=== PATIENT | male | born 1930 | race Caucasian/White ===

== ENCOUNTER 2022-07-04 17:05 | Inpatient (IN) ==
[2022-07-04] MEDS ORDERED: ACETAMINOPHEN 1,000 MG/100 ML VIAL IV STA (17:36)
[2022-07-04] MEDS ORDERED: SODIUM CHLORIDE 0.9% 1000ML 1,000 ML IV STA ×2 (17:36→18:27)
--- NOTE | 2022-07-04 17:36 | ED Triage Note ---
Date of Service July 04, 2022 History of Present Illness This patient was briefly evaluated while in triage. An abbreviated physical exam was performed. This patient is a 89-year-old Male with significant past medical history of HTN who presents to the ED for evaluation of shakiness and abdominal pain after eating lunch. Then started vomiting which lasted for about 2 hours. BP elevated to 173 systolic, HR was 106. Has had similar symptoms in the past. Physical Exam VITALS: Vitals are noted on the nurse's note and reviewed by myself. GENERAL: This is an 89 year old white male, in no acute distress, nondiaphoretic, well-developed well-nourished. SKIN: No obvious rashes, edema, erythema HEAD: Normocephalic atraumatic. EYES: Conjunctivae without injection, sclerae without icterus. NECK: No JVD. LUNGS: No retractions or accessory muscle use. MUSCULOSKELETAL: Normal gait. NEURO: Patient was alert and oriented to person place and time. No focal neurological deficits. Initial orders for labs and / or imaging were placed and patient was placed in the waiting area until a bed is available. Please see further documentation for the full ED course. MDM / Impression Impression Impression: Acute pancreatitis, Choledocholithiasis, Acute cholangitis
[2022-07-04 18:36] LABS: Basophils # (auto) 0.02 K/uL (0-0.2); Basophils % (auto) 0.2 %; Eosinophils # (auto) 0.02 K/uL (0-0.50); Eosinophils % (auto) 0.2 %; Hematocrit (blood only) 42.1 % (40.1-51.0); Hemoglobin 15.1 g/dl (14.0-18.0); Immature Granulocytes # (auto) 0.06 K/uL (0.00-0.02); Immature Granulocytes % (auto) 0.5 %; Lymphocytes # (auto) 0.49 K/uL (1.2-3.4); Lymphocytes % (auto) 3.8 %; Mean Corpuscular Hemoglobin 34.5 pg (25.0-34.0); Mean Corpuscular Hgb Conc 35.9 g/dL (32.0-36.0); Mean Corpuscular Volume 96.1 fL (80.0-100.0); Mean Platelet Volume 8.7 fL (9.4-12.4); Monocytes % (auto) 9.3 %; Neutrophils # (auto) 11.08 K/uL (1.4-6.5); Platelet Count 278 K/uL (130-400); RDW Coefficient of Variation 13.2 % (11.5-14.5); RDW Standard Deviation 47.3 fL (36.4-46.3); Red Blood Count 4.38 M/uL (4.63-6.08); White Blood Count 12.87 K/ul (4.8-10.8)
[2022-07-04 18:45] LABS: Prothrombin Time 11.1 Seconds (9.0-12.0)
[2022-07-04 19:00] LABS: Troponin I High Sensitivity 19.9 pg/ml (0-20)
[2022-07-04 19:19] LABS: BUN Creatinine Ratio 15.7 (10-20); Calcium 9.2 mg/dl (8.5-10.1); Est GFR (African American) 90.4 ml/min; Potassium 3.8 mmol/L (3.5-5.1); Procalcitonin 1.94 ng/ml (0-0.5)
[2022-07-04 19:25] LABS: Lyme Ab IgG w/WB Rflx Negative (Negative); Lyme Ab IgM w/WB Rflx Negative (Negative)
--- NOTE | 2022-07-04 19:25 | XRay Report ---
SINGLE VIEW CHEST CLINICAL HISTORY: Fever FINDINGS: An AP, portable, upright chest radiograph is compared to study dated 11/11/2019. The heart i s enlarged noting atherosclerotic calcification of the thoracic aorta. The pulmonary vasculature is n oncongested. Chronic interstitial thickening is similar to previous. There is elevation of the right hemidiaphragm with bibasilar scarring/atelectasis. The lungs and pleural spaces are otherwise clear. No pneumothorax is seen. The skeletal structures are osteopenic. The bony thorax is grossly intact. C holecystectomy clips are seen in the right upper quadrant. IMPRESSION: Cardiomegaly with no acute cardiopulmonary abnormality. ACT 112: Negative or not required by law. Electronically signed by: Xavier Olivarez M.D. 07/04/2022 7:24 PM
[2022-07-04 19:51] LABS: Albumin Globulin Ratio 1.1 (0.9-2); Albumin Level 3.6 gm/dl (3.4-5.0); Bilirubin,Total 3.4 mg/dl (0.2-1.0); Globulin 3.3 gm/dl (2.5-4.0); Total Protein 6.9 gm/dl (6.0-8.3)
--- NOTE | 2022-07-04 20:27 | CT Scan Report ---
CT SCAN OF THE ABDOMEN AND PELVIS WITHOUT IV CONTRAST CLINICAL HISTORY: Fever. Upper abdominal pain. COMPARISON STUDY: Abdominal CT dated 11/11/2019 TECHNIQUE: CT scan of the abdomen and pelvis is performed from the lung bases to the proximal femora. Images are reviewed in the axial, sagittal, and coronal planes. IV contrast was not administered for this examination as per the referring clinician. Note that the examination was performed in signific antly suboptimal fashion without oral and IV contrast. A dose lowering technique was utilized adherin g to the principles of ALARA. CT DOSE: 289.20 mGy.cm FINDINGS: Lung bases: The heart is mildly enlarged and without pericardial effusion. The coronary arteries are densely calcified. Fibrotic change is seen at the lung bases. There is no airspace consolidation or p leural effusion. Liver: The unenhanced liver is normal in size, contour, and attenuation. There is moderate intrahepat ic biliary ductal dilatation. Gallbladder: Surgically absent noting clips in the gallbladder fossa. Hyperdense material fills the c ommon bile duct. This is best seen on axial image #138. Mild infiltration is seen around the nahed he patis. Spleen: Normal in size and attenuation. Pancreas: Unremarkable. Adrenal glands: Unremarkable. Kidneys: The unenhanced kidneys are normal in size and without hydronephrosis. There are no renal cj culi identified. A 9 cm cyst is again seen arising from the upper pole of the right kidney. This has decreased in size as compared to 11/11/2019. Abdominal vasculature: The abdominal aorta is normal in course and caliber note moderate atherosclero tic calcification. Bowel: There is mild colonic diverticulosis without CT evidence of acute diverticulitis. No bowel obs truction is seen. The appendix is normal as visualized. Peritoneum: There is no intraperitoneal free air or abdominal ascites. A surgical clip or metallic fo reign body is noted just below the umbilicus. There is a small fat-containing umbilical hernia. Lymphadenopathy: None. Pelvic viscera: The prostate gland is enlarged and heterogeneous noting median lobe hypertrophy. The bladder wall is thickened and trabeculated indicating chronic outlet obstruction. A 3.3 cm bladder di verticulum is noted on the left. There are small bilateral fat-containing inguinal hernias. Skeletal structures: The skeletal structures are heterogeneously osteopenic. There is [id number]-af-[id number] e lumbosacral spondylosis. No lytic or blastic lesions are seen. IMPRESSION: 1. Significantly suboptimal examination without oral and IV contrast. 2. Hyperdense material fills the common bile duct, which could represent blood clots versus choledoch olithiasis. 3.There is moderate intrahepatic biliary ductal dilatation, which has significantly increased from . There is also mild inflammation seen around the nahed hepatis. Correlate with clinical and l aboratory findings for evidence of biliary obstruction and possible infection. GI assessment is advis ed. 4. Cardiomegaly with advanced coronary artery calcification. 5. Prostatomegaly with evidence of chronic bladder outlet obstruction. 6. Additional findings as above. ACT 112: Negative or not required by law. Electronically signed by: Xavier Olivarez M.D. 07/04/2022 8:25 PM
[2022-07-04] MEDS ORDERED: PIPERACILLIN/TAZOBACTAM 4.5 GM/120 ML BAG IV ONE (20:55)
[2022-07-04 21:01] LABS: Influenza A virus by PCR Negative (Neg); Influenza B virus by PCR Negative (Neg); RSV by PCR Negative (Neg); SARS CoV2 RNA(COVID-19) InHosp NEGATIVE (Negative)
[2022-07-04] MEDS: LACTATED RINGER'S 1,000 ML IV SCH (22:06)
--- NOTE | 2022-07-05 00:59 | Emergency Department Note ---
Impression & Plan Acute pancreatitis, Choledocholithiasis, Acute cholangitis ED Provider Note INFORMANT: Patient and family ED PROVIDER(S): Tim Tompkins MD CHIEF COMPLAINT: Abdominal pain PLAN: Disposition: Admitted Condition: Good Outpatient prescription management: none Referral: None MEDICAL DECISION MAKING: Patient presented because of abdominal pain. Work-up was initiated. He was found to have laboratory findings consistent with pancreatitis with an elevated lipase. He also had elevated LFTs and a leukocytosis. Patient was hydrated and treated with IV Zosyn. ECG showed a tachycardia. CT imaging was consistent with pancreatitis but also concerning for possible choledocholithiasis. Radiology questioned blood in the duct but the patient does not have any risk factors for this. Seems most consistent with choledocholithiasis in light of his history. I did consult with Dr. Rubio of gastroenterology. He recommended inpatient evaluation and agree with antibiotics. [facility]. Patient was evaluated and admitted for further management. Triage Nursing notes reviewed and agree them. Vital Signs: reviewed and remarkable for fever Differential diagnosis: Appendicitis, infections, diverticulitis, UTI, obstruction, mesenteric ischemia, aortic pathology, inflammatory bowel disease, renal colic, PUD, pancreatitis, biliary pathology, hernia, volvulus, constipation, as well as other pathologies. Diagnostics interpreted by me: ECG: Twelve-lead ECG reveals a sinus tachycardia 102 beats minute. PACs prese nt. Nonspecific ST. No ST elevation. Cardiac Monitoring: Cardiac monitoring ordered by me: The patient was placed on continuous cardiac monitoring and observed. It revealed a normal sinus rhythm at 87 beats per minute without evidence of dysrhythmia. Imaging studies: CT scan as noted below HPI: The patient is an 89year old male who presents to the Emergency Room with complaints of abdominal pain. This started about 2 hours prior to arrival and is improved. The patient also notes the following associated symptoms, chills, shaking, nausea and vomiting. The patient has been given no medication for relieving factors. Current pain is rated as 2/10. notes that the patient has had upper abdominal discomfort for several weeks. States an upper GI was performed and no problems noted. Pt denies LOC, headache, fevers, diaphoresis, visual changes, neck pain, chest pain, breathing difficulties, back pain, melena, hematochezia, urinary symptoms, numbness, weakness, lymphadenopathy, rash, or other complaints. ROS: See above HPI for pertinent positives & negatives. A total of 10 systems reviewed and were otherwise negative. PAST MEDICAL HISTORY:See Below , hypertension PAST SURGICAL HISTORY:See Below, cholecystectomy FAMILY HISTORY:See Below SOCIAL HISTORY:See Below, HOME MEDICATIONS:See Below ALLERGIES:See Below VITALS:See Below PHYSICAL EXAMINATION: GENERAL: Awake, alert, mildly uncomfortable-appearing, in no distress HENT: Normocephalic, atraumatic. Oropharynx unremarkable. EYES: Normal conjunctiva. Sclera non-icteric. NECK: Inspection normal. Non-tender. Supple. No nuchal rigidity. FROM. No masses. RESPIRATORY: Clear to auscultation. No wheezes. No rales. Normal respiratory effort. CARDIAC: Normal rate. Normal rhythm. No murmurs. No rubs. Extremities warm and well perfused. Pulses equal. No JVD. GI: Soft, non-distended. Epigastric tenderness to palpation. No rebound or guarding. No masses. RECTAL: Deferred. MUSCULOSKELETAL: Atraumatic. Chest examination reveals no tenderness. The back is symmetrical on inspection without obvious abnormality. There is no CVA tenderness to palpation. No joint edema. LOWER EXTREMITIES: Calves are equal size bilaterally and non-tender. No edema. No discoloration. NEURO: Mild short-term memory loss present but otherwise relatively normal sensorium. No sensory or motor deficits noted. SKIN: No rash or jaundice noted. Tim Tompkins MD Past Med/Surg History Medical History (Updated 07/05/22 @ 00:59 by Tim Tompkins MD) BPH (benign prostatic hyperplasia) Hypertension Insomnia Macular degeneration Osteoarthritis Skin cancer TYPE UNK - RECENT DIAGNOSIS - NOSE - WILL BE REMOVED 12/20 Surgical History History of cataract extraction with lens replacement RIGHT EYE, [facility] [place], 12/27/18. 2mg versed no issues. History of cholecystectomy History of colonoscopy History of knee surgery S/P TURP Social History Smoking Status: Never smoker Second Hand Exposure: No; Hx Alcohol Use: No Hx Substance Use: No Preferred Language: Yoruba Communication Ability: Effective Sales Driver Required: No Beliefs That Will Affect Care: None Current Living Situation: Spouse Feels Safe at Home: Yes Assistive Devices: Denture - Upper and Denture - Lower Allergies Allergies Allergy/AdvReac Type Severity Reaction Status Date / Time No Known Allergies Allergy Verified 07/04/22 21:56 Home Meds Home Medications Medication Instructions Recorded Confirmed aspirin 81 mg tablet,delayed 81 mg PO HS 12/14/18 07/04/22 release lisinopril 10 mg tablet (Zestril) 10 mg PO QAM 12/14/18 07/04/22 docusate sodium 100 mg capsule 100 mg PO DAILY 07/04/22 07/04/22 levothyroxine 50 mcg tablet 50 mcg PO DAILYBB 07/04/22 07/04/22 melatonin 5 mg tablet 5 mg PO HS 07/04/22 07/04/22 multivitamin with iron-mineral 1 tab PO DAILY 07/04/22 07/04/22 psyllium husk 0.4 gram capsule 0.4 g PO DAILY 07/04/22 07/04/22 (Fiber (psyllium husk)) sertraline 25 mg tablet 25 mg PO QAM 07/04/22 07/04/22 Results & Data (ED) Vital Signs Vital Signs - 24 hr 07/04/22 17:34 07/04/22 18:27 07/04/22 20:00 Temperature 38.2 C H Temperature Source Oral Pulse Rate 110 H Pulse Rate [Apical] 115 H Pulse Rate from SpO2 Sensor Pulse Rhythm [Apical] Regular Pulse Strength [Apical] Normal Respiratory Rate 16 26 H Respiratory Effort / Characteristics Non-Labored Spontaneous Labored Non-Labored Respiratory Depth Normal Shallow Normal Respiratory Pattern Regular Tachypnea Blood Pressure 155/90 H Blood Pressure [Right Arm] 170/95 H Blood Pressure Mean 111 Blood Pressure Mean [Right Arm] 120 Blood Pressure Position Sitting Blood Pressure Position [Right Arm] Lying Pulse Oximetry 93 96 Oxygen Delivery Method Room Air Room Air Sepsis Recent Fever Within 48 Hours No Sepsis New/Unexplained Change in Mental Status N/A Sepsis Action Taken by Nursing Physician Notified 07/04/22 18:15 07/04/22 18:16 07/04/22 18:16 Temperature Temperature Source Pulse Rate 115 H 111 H Pulse Rate [Apical] Pulse Rate from SpO2 Sensor 103 H 112 H Pulse Rhythm [Apical] Pulse Strength [Apical] Respiratory Rate 9 L 36 H Respiratory Effort / Characteristics Respiratory Depth Respiratory Pattern Blood Pressure 170/95 H Blood Pressure [Right Arm] Blood Pressure Mean 120 Blood Pressure Mean [Right Arm] Blood Pressure Position Blood Pressure Position [Right Arm] Pulse Oximetry 94 95 Oxygen Delivery Method Sepsis Recent Fever Within 48 Hours Sepsis New/Unexplained Change in Mental Status Sepsis Action Taken by Nursing 07/04/22 18:20 07/04/22 18:30 07/04/22 18:40 Temperature Temperature Source Pulse Rate 109 H 108 H 106 H Pulse Rate [Apical] Pulse Rate from SpO2 Sensor 110 H 108 H 107 H Pulse Rhythm [Apical] Pulse Strength [Apical] Respiratory Rate 34 H 30 H 34 H Respiratory Effort / Characteristics Respiratory Depth Respiratory Pattern Blood Pressure Blood Pressure [Right Arm] Blood Pressure Mean Blood Pressure Mean [Right Arm] Blood Pressure Position Blood Pressure Position [Right Arm] Pulse Oximetry 95 95 95 Oxygen Delivery Method Sepsis Recent Fever Within 48 Hours Sepsis New/Unexplained Change in Mental Status Sepsis Action Taken by Nursing 07/04/22 18:50 07/04/22 19:00 07/04/22 19:10 Temperature Temperature Source Pulse Rate 105 H 103 H 100 H Pulse Rate [Apical] Pulse Rate from SpO2 Sensor Pulse Rhythm [Apical] Pulse Strength [Apical] Respiratory Rate 32 H 33 H 32 H Respiratory Effort / Characteristics Respiratory Depth Respiratory Pattern Blood Pressure Blood Pressure [Right Arm] Blood Pressure Mean Blood Pressure Mean [Right Arm] Blood Pressure Position Blood Pressure Position [Right Arm] Pulse Oximetry Oxygen Delivery Method Sepsis Recent Fever Within 48 Hours Sepsis New/Unexplained Change in Mental Status Sepsis Action Taken by Nursing 07/04/22 19:20 07/04/22 19:44 07/04/22 19:50 Temperature Temperature Source Pulse Rate 97 H 97 H 94 H Pulse Rate [Apical] Pulse Rate from SpO2 Sensor 95 H 92 H Pulse Rhythm [Apical] Pulse Strength [Apical] Respiratory Rate 18 20 31 H Respiratory Effort / Characteristics Respiratory Depth Respiratory Pattern Blood Pressure Blood Pressure [Right Arm] Blood Pressure Mean Blood Pressure Mean [Right Arm] Blood Pressure Position Blood Pressure Position [Right Arm] Pulse Oximetry 93 93 Oxygen Delivery Method Sepsis Recent Fever Within 48 Hours Sepsis New/Unexplained Change in Mental Status Sepsis Action Taken by Nursing 07/04/22 20:00 07/04/22 20:10 07/04/22 20:20 Temperature Temperature Source Pulse Rate 93 H 92 H 90 Pulse Rate [Apical] Pulse Rate from SpO2 Sensor 92 H 92 H 92 H Pulse Rhythm [Apical] Pulse Strength [Apical] Respiratory Rate 29 H 30 H 28 H Respiratory Effort / Characteristics Respiratory Depth Respiratory Pattern Blood Pressure Blood Pressure [Right Arm] Blood Pressure Mean Blood Pressure Mean [Right Arm] Blood Pressure Position Blood Pressure Position [Right Arm] Pulse Oximetry 93 93 93 Oxygen Delivery Method Sepsis Recent Fever Within 48 Hours Sepsis New/Unexplained Change in Mental Status Sepsis Action Taken by Nursing 07/04/22 20:30 07/04/22 20:40 07/04/22 20:50 Temperature Temperature Source Pulse Rate 90 89 86 Pulse Rate [Apical] Pulse Rate from SpO2 Sensor 91 H 89 87 Pulse Rhythm [Apical] Pulse Strength [Apical] Respiratory Rate 28 H 29 H 29 H Respiratory Effort / Characteristics Respiratory Depth Respiratory Pattern Blood Pressure Blood Pressure [Right Arm] Blood Pressure Mean Blood Pressure Mean [Right Arm] Blood Pressure Position Blood Pressure Position [Right Arm] Pulse Oximetry 93 94 94 Oxygen Delivery Method Sepsis Recent Fever Within 48 Hours Sepsis New/Unexplained Change in Mental Status Sepsis Action Taken by Nursing 07/04/22 21:00 07/04/22 21:10 07/04/22 21:20 Temperature Temperature Source Pulse Rate 86 80 87 Pulse Rate [Apical] Pulse Rate from SpO2 Sensor 87 86 87 Pulse Rhythm [Apical] Pulse Strength [Apical] Respiratory Rate 29 H 31 H 27 H Respiratory Effort / Characteristics Respiratory Depth Respiratory Pattern Blood Pressure Blood Pressure [Right Arm] Blood Pressure Mean Blood Pressure Mean [Right Arm] Blood Pressure Position Blood Pressure Position [Right Arm] Pulse Oximetry 93 94 94 Oxygen Delivery Method Sepsis Recent Fever Within 48 Hours Sepsis New/Unexplained Change in Mental Status Sepsis Action Taken by Nursing 07/04/22 21:25 07/04/22 21:25 Temperature Temperature Source Pulse Rate 87 Pulse Rate [Apical] Pulse Rate from SpO2 Sensor 88 Pulse Rhythm [Apical] Pulse Strength [Apical] Respiratory Rate 33 H Respiratory Effort / Characteristics Respiratory Depth Respiratory Pattern Blood Pressure 122/69 Blood Pressure [Right Arm] Blood Pressure Mean 86 Blood Pressure Mean [Right Arm] Blood Pressure Position Blood Pressure Position [Right Arm] Pulse Oximetry 94 Oxygen Delivery Method Sepsis Recent Fever Within 48 Hours Sepsis New/Unexplained Change in Mental Status Sepsis Action Taken by Nursing Laboratory Data Result diagrams: 07/04/22 18:13 07/04/22 18:13 Lab Results 07/04/22 07/04/22 07/04/22 Range/Units 18:13 18:13 18:13 WBC 12.87 H (4.8-10.8) K/ul RBC 4.38 L (4.63-6.08) M/uL Hgb 15.1 (14.0-18.0) g/dl Hct 42.1 (40.1-51.0) % MCV 96.1 (80.0-100.0) fL MCH 34.5 H (25.0-34.0) pg MCHC 35.9 (32.0-36.0) g/dL RDW Std Deviation 47.3 H (36.4-46.3) fL RDW Coeff of Lorin 13.2 (11.5-14.5) % Plt Count 278 (130-400) K/uL MPV 8.7 L (9.4-12.4) fL Immature Gran % (Auto) 0.5 % Neut % (Auto) 86.0 % Lymph % (Auto) 3.8 % Meigs % (Auto) 9.3 % Eos % (Auto) 0.2 % Baso % (Auto) 0.2 % Neut # (Auto) 11.08 H (1.4-6.5) K/uL Lymph # (Auto) 0.49 L (1.2-3.4) K/uL Meigs # (Auto) 1.20 H (0.24-0.82) K/uL Eos # (Auto) 0.02 (0-0.50) K/uL Baso # (Auto) 0.02 (0-0.2) K/uL Immature Gran # (Auto) 0.06 H (0.00-0.02) K/uL PT 11.1 (9.0-12.0) Seconds INR 1.0 (0.9-1.1) Sodium 140 (136-145) mmol/L Potassium 3.8 (3.5-5.1) mmol/L Chloride 101 (98-107) mmol/L Carbon Dioxide 27 (21-32) mmol/L Anion Gap 12 H (3-11) BUN 13 (6-23) mg/dl Creatinine 0.83 (0.6-1.4) mg/dl Est Cr Clr Drug Dosing 50.0 ml/min Est GFR ( Amer) 90.4 ml/min Est GFR (Non-Af Amer) 78.0 ml/min BUN/Creatinine Ratio 15.7 (10-20) Glucose 162 H (70-99(Fasting)) mg/dl Lactate (0.4-2.0) mmol/L Calcium 9.2 (8.5-10.1) mg/dl Total Bilirubin 3.4 H (0.2-1.0) mg/dl AST 196 H (13-39) U/L ALT 119 H (7-52) U/L Alkaline Phosphatase 663 H (34-104) U/L Troponin I High Sens 19.9 (0-20) pg/ml Total Protein 6.9 (6.0-8.3) gm/dl Albumin 3.6 (3.4-5.0) gm/dl Globulin 3.3 (2.5-4.0) gm/dl Albumin/Globulin Ratio 1.1 (0.9-2) Lipase 3094 H (11-82) U/L Procalcitonin (0-0.5) ng/ml Lyme Disease IgG Ab (Negative) Lyme Disease IgM Ab (Negative) SARS-CoV-2 (PCR) (Negative) Influenza Type A (PCR) (Neg) Influenza Type B (PCR) (Neg) RSV (RT-PCR) (Neg) 07/04/22 07/04/22 07/04/22 Range/Units 18:13 18:13 18:22 WBC (4.8-10.8) K/ul RBC (4.63-6.08) M/uL Hgb (14.0-18.0) g/dl Hct (40.1-51.0) % MCV (80.0-100.0) fL MCH (25.0-34.0) pg MCHC (32.0-36.0) g/dL RDW Std Deviation (36.4-46.3) fL RDW Coeff of Lorin (11.5-14.5) % Plt Count (130-400) K/uL MPV (9.4-12.4) fL Immature Gran % (Auto) % Neut % (Auto) % Lymph % (Auto) % Meigs % (Auto) % Eos % (Auto) % Baso % (Auto) % Neut # (Auto) (1.4-6.5) K/uL Lymph # (Auto) (1.2-3.4) K/uL Meigs # (Auto) (0.24-0.82) K/uL Eos # (Auto) (0-0.50) K/uL Baso # (Auto) (0-0.2) K/uL Immature Gran # (Auto) (0.00-0.02) K/uL PT (9.0-12.0) Seconds INR (0.9-1.1) Sodium (136-145) mmol/L Potassium (3.5-5.1) mmol/L Chloride (98-107) mmol/L Carbon Dioxide (21-32) mmol/L Anion Gap (3-11) BUN (6-23) mg/dl Creatinine (0.6-1.4) mg/dl Est Cr Clr Drug Dosing ml/min Est GFR ( Amer) ml/min Est GFR (Non-Af Amer) ml/min BUN/Creatinine Ratio (10-20) Glucose (70-99(Fasting)) mg/dl Lactate 1.4 (0.4-2.0) mmol/L Calcium (8.5-10.1) mg/dl Total Bilirubin (0.2-1.0) mg/dl AST (13-39) U/L ALT (7-52) U/L Alkaline Phosphatase (34-104) U/L Troponin I High Sens (0-20) pg/ml Total Protein (6.0-8.3) gm/dl Albumin (3.4-5.0) gm/dl Globulin (2.5-4.0) gm/dl Albumin/Globulin Ratio (0.9-2) Lipase (11-82) U/L Procalcitonin 1.94 H (0-0.5) ng/ml Lyme Disease IgG Ab Negative (Negative) Lyme Disease IgM Ab Negative (Negative) SARS-CoV-2 (PCR) NEGATIVE (Negative) Influenza Type A (PCR) Negative (Neg) Influenza Type B (PCR) Negative (Neg) RSV (RT-PCR) Negative (Neg) Administered Medications Sodium Chloride (Nss 1000ml) 1,000 mls @ 125 mls/hr IV .Q8H STA Stop: 07/05/22 02:26 Last Admin: 07/04/22 18:31 Dose: 125 mls/hr Documented By: RSL Lactated Ringer's (Lr) 1,000 mls @ 200 mls/hr IV .Q5H LINO Stop: 08/03/22 21:29 Last Admin: 07/04/22 22:06 Dose: 200 mls/hr Documented By: STACIA Discontinued Medications Sodium Chloride (Nss 1000ml) 1,000 mls @ 999 mls/hr IV .Q1H1M STA Stop: 07/04/22 18:36 Last Infusion: 07/04/22 18:58 Dose: 999 mls/hr Documented By: Admin: 07/04/22 18:26 Dose: 999 mls/hr Documented By: RSL Acetaminophen (Ofirmev) 1,000 mg in 100 mls @ 400 mls/hr IV NOW STA Stop: 07/04/22 17:50 Last Infusion: 07/04/22 18:57 Dose: 0 mls/hr Documented By: Admin: 07/04/22 18:26 Dose: 400 mls/hr Documented By: RSL Piperacillin Sod/Tazobactam Sod (Zosyn) 4.5 gm in 120 mls @ 240 mls/hr IV NOW ONE Stop: 07/04/22 21:24 Last Infusion: 07/04/22 22:06 Dose: 0 mls/hr Documented By: Admin: 07/04/22 21:20 Dose: 240 mls/hr Documented By: STACIA Imaging Data Radiologist's Impression: Chest X-Ray 07/04/22 17:36 SINGLE VIEW CHEST CLINICAL HISTORY: Fever FINDINGS: An AP, portable, upright chest radiograph is compared to study dated 11/11/2019. The heart is enlarged noting atherosclerotic calcification of the thoracic aorta. The pulmonary vasculature is noncongested. Chronic interstitial thickening is similar to previous. There is elevation of the right hemidiaphragm with bibasilar scarring/atelectasis. The lungs and pleural spaces are otherwise clear. No pneumothorax is seen. The skeletal structures are osteopenic. The bony thorax is grossly intact. Cholecystectomy clips are seen in the right upper quadrant. IMPRESSION: Cardiomegaly with no acute cardiopulmonary abnormality. ACT 112: Negative or not required by law. Electronically signed by: Xavier Olivarez M.D. 07/04/2022 7:24 PM Abdomen/Pelvis CT 07/04/22 18:26 CT SCAN OF THE ABDOMEN AND PELVIS WITHOUT IV CONTRAST CLINICAL HISTORY: Fever. Upper abdominal pain. COMPARISON STUDY: Abdominal CT dated 11/11/2019 TECHNIQUE: CT scan of the abdomen and pelvis is performed from the lung bases to the proximal femora. Images are reviewed in the axial, sagittal, and coronal planes. IV contrast was not administered for this examination as per the referring clinician. Note that the examination was performed in significantly suboptimal fashion without oral and IV contrast. A dose lowering technique was utilized adhering to the principles of ALARA. CT DOSE: 289.20 mGy.cm FINDINGS: Lung bases: The heart is mildly enlarged and without pericardial effusion. The coronary arteries are densely calcified. Fibrotic change is seen at the lung bases. There is no airspace consolidation or pleural effusion. Liver: The unenhanced liver is normal in size, contour, and attenuation. There is moderate intrahepatic biliary ductal dilatation. Gallbladder: Surgically absent noting clips in the gallbladder fossa. Hyperdense material fills the common bile duct. This is best seen on axial image #138. Mild infiltration is seen around the nahed hepatis. Spleen: Normal in size and attenuation. Pancreas: Unremarkable. Adrenal glands: Unremarkable. Kidneys: The unenhanced kidneys are normal in size and without hydronephrosis. There are no renal calculi identified. A 9 cm cyst is again seen arising from the upper pole of the right kidney. This has decreased in size as compared to 11/11/2019. Abdominal vasculature: The abdominal aorta is normal in course and caliber note moderate atherosclerotic calcification. Bowel: There is mild colonic diverticulosis without CT evidence of acute diverticulitis. No bowel obstruction is seen. The appendix is normal as visualized. Peritoneum: There is no intraperitoneal free air or abdominal ascites. A surgical clip or metallic foreign body is noted just below the umbilicus. There is a small fat-containing umbilical hernia. Lymphadenopathy: None. Pelvic viscera: The prostate gland is enlarged and heterogeneous noting median lobe hypertrophy. The bladder wall is thickened and trabeculated indicating chronic outlet obstruction. A 3.3 cm bladder diverticulum is noted on the left. There are small bilateral fat-containing inguinal hernias. Skeletal structures: The skeletal structures are heterogeneously osteopenic. There is [id number] lumbosacral spondylosis. No lytic or blastic lesions a re seen. IMPRESSION: 1. Significantly suboptimal examination without oral and IV contrast. 2. Hyperdense material fills the common bile duct, which could represent blood clots versus choledocholithiasis. 3.There is moderate intrahepatic biliary ductal dilatation, which has signific antly increased from 11/11/2019. There is also mild inflammation seen around the nahed hepatis. Correlate with clinical and laboratory findings for evidence of biliary obstruction and possible infection. GI assessment is advised. 4. Cardiomegaly with advanced coronary artery calcification. 5. Prostatomegaly with evidence of chronic bladder outlet obstruction. 6. Additional findings as above. ACT 112: Negative or not required by law. Electronically signed by: Xavier Olivarez M.D. 07/04/2022 8:25 PM Discharge Plan Visit Data Chief Complaint: Hypertension Stated Complaint: ABDOMINAL PAIN, HIGH BLOOD PRESSURE,HIGH HEART RAT ED Provider: Tim Tompkins Discharge Problem: Acute pancreatitis, Choledocholithiasis, Acute cholangitis Forms Stand Alone Forms: My [facility] [employer] Prescriptions Prescriptions: No Action aspirin 81 mg Tablet,Delayed Release (Dr/Ec) 81 mg PO HS lisinopril [Zestril] 10 mg Tablet 10 mg PO QAM levothyroxine 50 mcg tablet 50 mcg PO DAILYBB docusate sodium 100 mg Capsule 100 mg PO DAILY sertraline 25 mg tablet 25 mg PO QAM Multivitamin-Minerals Tablet 1 tab PO DAILY melatonin 5 mg Tablet 5 mg PO HS psyllium husk [Fiber (psyllium husk)] 0.4 gram Capsule 0.4 g PO DAILY Referrals Referrals: Matt Zhu MD [Primary Care Provider] -
[2022-07-05] MEDS ORDERED: NITROGLYCERIN SL 0.4 MG/TAB TAB SL PRN (02:49)
[2022-07-05] MEDS ORDERED: MoRPHine SULFATE 2 MG/ML CARP IV PRN (02:49)
[2022-07-05] MEDS ORDERED: ONDANSETRON INJ 2 MG/ML 2 ML VIAL IV PRN ×2 (02:49→13:46)
[2022-07-05] MEDS: LACTATED RINGER'S 1,000 ML IV SCH ×5 (03:04→23:56)
--- NOTE | 2022-07-05 04:28 | History and Physical Report ---
DATE OF ADMISSION: 07/05/2022 CHIEF COMPLAINT: Abdominal pain. HISTORY OF PRESENT ILLNESS: An 89-year-old male with past medical history significant for hypothyroidism, hypertension, chronic kidney disease stage III, GERD, bilateral senile cataracts, generalized anxiety disorder, who lives with his , ambulates without support comes with abdominal pain. He says this is going on for last 1 month. Sometimes the pain is bad, associated with nausea and vomiting, which prompted him to come to the ER today. The pain is in the lower chest, epigastric region but there is no chest pain, no shortness of breath. He has occasional cough. No headache, no blurred visions, no runny nose, no sore throat, no fevers, no difficulty swallowing as per the patient. Normal bowel and bladder movements. Currently, resting comfortably. He had a temperature spike in the ER. His white count was 12.8. LFTs were elevated, lipase was 3094. Procalcitonin 1.9. CT of abdomen and pelvis with IV contrast showed pancreatitis and also hypodense material filling the common bile duct, which could represent blood clot versus choledocholithiasis, moderate intrahepatic biliary ductal dilation, which is increased from October 2019, also mild inflammation seen around the nahed hepatis. ER called GI on-call who advised to antibiotics, fluids and possible plan for ERCP in the a.m. No further imaging studies recommended.Patient speaks slowly. ALLERGIES: No known drug allergies. PAST MEDICAL HISTORY: As mentioned above. PAST SURGICAL HISTORY: Colonoscopy, hemorrhoidectomy, laser vaporization of the prostate, TURP, cholecystectomy. MEDICATIONS: The patient is on aspirin 81 mg p.o. at bedtime, Colace 100 mg p.o. daily, levothyroxine 50 mcg p.o. daily, lisinopril 10 mg p.o. daily, melatonin 5 mg p.o. at bedtime, multivitamins with minerals 1 tablet daily, sertraline 25 mg p.o. a.m. FAMILY HISTORY: Significant for brother has arthritis. Sister has diabetes. Mother has liver problems and [place]. SOCIAL HISTORY: The patient is and lives with his . No smoking, no alcohol, no drug use. REVIEW OF SYSTEMS: As per HPI. Rest of the review of systems is negative. PHYSICAL EXAMINATION: GENERAL: The patient is old and frail, not in acute distress, somewhat slow to answer. VITAL SIGNS: Temperature 38.2, pulse 87, respiratory rate 27, blood pressure 128/69, oxygen 94% on room air. HEENT: Pupils equal, round and reactive to light. Oral mucosa somewhat dry. NECK: No JVD, no neck masses. CARDIOVASCULAR: S1 and S2 heard. Regular rate and rhythm. No murmur, no gallop. RESPIRATORY SYSTEM: Normal AP diameter. No accessory muscle use. No wheezing, no crackles. ABDOMEN: Soft, bowel sounds present. Mild abdominal discomfort. No guarding. No rigidity. No distention. CENTRAL NERVOUS SYSTEM: Alert and oriented. Some slow to answer. Insight is okay. Answers questions appropriately. Moves extremities. No facial droop seen. EXTREMITIES: Trace pedal edema, no erythema seen. LABORATORY DATA: WBC 12.8, hemoglobin 15.1, hematocrit 42.1, platelets 278. PT 11.1, INR 1. Sodium 140, potassium 3.8, chloride 101, bicarbonate 27, BUN 13, creatinine 0.8, serum glucose 162. Lactate 1.4, calcium 9.2, total bilirubin 3.4, AST 196, ALT 119, alkaline phosphatase 663. Troponin I high sensitivity 19.9. Lipase 3094. Procalcitonin 1.94. Lyme screen negative. SARS-CoV-2 PCR negative. Influenza A and B PCR is negative. RSV PCR negative. IMAGING DATA: Chest x-ray, no acute findings. EKG: Sinus tachycardia with PACs at a rate of 102. Nonspecific ST abnormalities. IMAGING DATA: CT of abdomen and pelvis with IV contrast shows pancreatitis and also hypodense material fills in the common bile duct, which could represent blood clot versus choledocholithiasis, moderate intrahepatic biliary ductal dilatation. Mild inflammation seen around nahed hepatis. ASSESSMENT AND PLAN: This is an 89-year-old male, presents with abdominal pain and found to have acute pancreatitis and also possible CBD stones. 1. Abdominal pain, acute pancreatitis, Possible acute Cholangitis the patient with history of cholecystectomy, possible CBD stones versus blood clots, most likely stones. GI on-call was notified by the ER. Possible plan for ERCP in the a.m. Will keep him n.p.o., IV Ringer's lactate at 150 mL per hour, IV Zosyn, IV antiemetics, IV pain medications. Closely monitor in med/tele floor as the patient is an 89-year-old, frail and getting aggressive fluids. 2. Hypertension. Continue his lisinopril. Monitor the blood pressure. 3. Hypothyroidism: Continue Synthroid. 4. History of gastroesophageal reflux disease: Place him on Pepcid. 5. Generalized anxiety disorder, on sertraline. 6. Deep venous thrombosis prophylaxis: Sequential compression devices for now as plan for procedures. DISPOSITION: Closely monitor in the med tele. PT/OT prior to discharge. Social service to help with discharge planning. Job ID: [id number] [facility]USDionic[facility]
[2022-07-05] MEDS: PIPERACILLIN/TAZOBACTAM 3.375 GM in DEXTROSE 5% 100 ML IV SCH ×3 (04:51→20:27)
[2022-07-05] MEDS: LEVOTHYROXINE SODIUM 50 MCG TABLET PO SCH (05:59)
[2022-07-05 06:07] LABS: Red Blood Count 4.27 M/uL (4.63-6.08); White Blood Count 13.82 K/ul (4.8-10.8)
[2022-07-05 06:08] LABS: Basophils # (auto) 0.02 K/uL (0-0.2); Basophils % (auto) 0.1 %; Eosinophils # (auto) 0.02 K/uL (0-0.50); Eosinophils % (auto) 0.1 %; Hematocrit (blood only) 42.2 % (40.1-51.0); Hemoglobin 14.6 g/dl (14.0-18.0); Immature Granulocytes # (auto) 0.04 K/uL (0.00-0.02); Immature Granulocytes % (auto) 0.3 %; Lymphocytes # (auto) 2.02 K/uL (1.2-3.4); Lymphocytes % (auto) 14.6 %; Mean Corpuscular Hemoglobin 34.2 pg (25.0-34.0); Mean Corpuscular Hgb Conc 34.6 g/dL (32.0-36.0); Mean Corpuscular Volume 98.8 fL (80.0-100.0); Mean Platelet Volume 8.8 fL (9.4-12.4); Monocytes # (auto) 1.47 K/uL (0.24-0.82); Monocytes % (auto) 10.6 %; Neutrophils # (auto) 10.25 K/uL (1.4-6.5); Neutrophils % (auto) 74.3 %; Platelet Count 291 K/uL (130-400); RDW Coefficient of Variation 13.7 % (11.5-14.5); RDW Standard Deviation 50.2 fL (36.4-46.3)
[2022-07-05 06:10] LABS: Albumin Level 3.6 gm/dl (3.4-5.0); BUN Creatinine Ratio 15.2 (10-20); Bilirubin Direct 2.8 mg/dl (0-0.2); Bilirubin,Total 4.2 mg/dl (0.2-1.0); Calcium 9.1 mg/dl (8.5-10.1); Creatinine Clr Calc Pharmacy 44.1 ml/min; Est GFR (African American) 85.2 ml/min; Est GFR (Non-African American) 73.5 ml/min; Magnesium 1.9 mg/dl (1.7-2.4); Total Protein 6.5 gm/dl (6.0-8.3)
[2022-07-05] MEDS: SERTRALINE HCL 50 MG TABLET PO SCH (08:01)
[2022-07-05] MEDS: PSYLLIUM or GUAR GUM FIBER POWDER PACKET PO SCH (08:01)
[2022-07-05] MEDS: FAMOTIDINE 20 MG in SYRINGE 3 ML IV SCH ×2 (08:01→20:27)
[2022-07-05] MEDS: CEROVITE ADV FORMULA TAB PO SCH (08:01)
[2022-07-05] MEDS: DOCUSATE SODIUM 100 MG CAP PO SCH (08:06)
[2022-07-05] MEDS ORDERED: INDOMETHACIN 50 MG SUPP PR ONE ×2 (08:09→14:18)
--- NOTE | 2022-07-05 08:25 | Gastrointestinal Consultation ---
Date of Consultation July 05, 2022 Assessment & Plan (1) Acute pancreatitis: (2) Choledocholithiasis: (3) Acute cholangitis: Pt is a 89 yo male who presented w fever, abd pain, n/v symptoms, noted to have elevated lipase, LFTs, and CT evidence of biliary ductal dilation, obstruction and pancreatitis. Suspect he also has cholangitis given fever and elevated WBC. He is s/p cholecystectomy - Keep NPO - Plan for ERCP in OR today by Dr. Noe Hadley - Octaviasyruchi IV - Symptomatic management otherwise - Further recs after ERCP completed Supervising Physician Co-Signing Physician Notes All 4 I saw saw and evaluated the patient. We were consulted for evaluation of elevated liver enzymes and a history of abdominal discomfort. The patient presents with signs and symptoms which are highly consistent with acute cholangitis. The patient has developed some confusion this afternoon therefore consent for ERCP was obtained through his . Physical examination Scleral icterus noted Cardiovascular: Tachycardiac with systolic ejection murmur Right upper quadrant tender to palpation Patient status post cholecystectomy and number of years ago presenting with intermittent abdominal discomfort over several months now with fevers, chills, elevated liver enzymes and jaundice. He constellation of symptoms and findings are most compatible with acute cholangitis. We will proceed with biliary decompression today. Risks have been discussed to include bleeding infection perforation, pain, pancreatitis, failed biliary cannulation and need for follow- up studies. History of Present Illness Reason for Consultation: Pancreatitis, Elevated LFTs, ? CBD stone Requesting Physician: Dr. Anne Cota Attending Physician: Dr. Noe Hadley History of Present Illness Pt is a 89 yo male w PMHx as noted below who presented last night w c/o abd pain, n/v. Denies associated fever, chills, CP, SOB. + occasional cough, COVID 19 negative. He was noted to be febrile in ED w temp of 38.2. On eval, WBC elevated at 12, LFTs also elevated: Tbili 4.2, AST 190, ALT 132, Alk phos 584, Lipase 3094. CT abd/pelvis w IV contrast shwoed hyperdense material fills the common bile duct, which could represent blood clots versus choledocholithiasis..There is moderate intrahepatic biliary ductal dilatation, which has significantly increased from 11/11/2019. There is also mild inflammation seen around the nahed hepatis. There is also evidence of pancreatitis. He was started on Zosyn IV, made NPO for possible ERCP today Allergies Allergy/AdvReac Type Severity Reaction Status Date / Time No Known Allergies Allergy Verified 07/04/22 21:56 Home Medications Medication Instructions Recorded Confirmed Type aspirin 81 mg tablet,delayed 81 mg PO HS 12/14/18 07/04/22 History release lisinopril 10 mg tablet (Zestril) 10 mg PO QAM 12/14/18 07/04/22 History docusate sodium 100 mg capsule 100 mg PO DAILY 07/04/22 07/04/22 History levothyroxine 50 mcg tablet 50 mcg PO DAILYBB 07/04/22 07/04/22 History melatonin 5 mg tablet 5 mg PO HS 07/04/22 07/04/22 History multivitamin with iron-mineral 1 tab PO DAILY 07/04/22 07/04/22 History psyllium husk 0.4 gram capsule 0.4 g PO DAILY 07/04/22 07/04/22 History (Fiber (psyllium husk)) sertraline 25 mg tablet 25 mg PO QAM 07/04/22 07/04/22 History Patient History Medical History BPH (benign prostatic hyperplasia) CKD (chronic kidney disease), stage III JUAN MANUEL (generalized anxiety disorder) Hypertension Hypothyroidism Insomnia Macular degeneration Osteoarthritis Skin cancer TYPE UNK - RECENT DIAGNOSIS - NOSE - WILL BE REMOVED 12/20 Surgical History History of cataract extraction with lens replacement RIGHT EYE, [facility] [place], 12/27/18. 2mg versed no issues. History of cholecystectomy History of colonoscopy History of knee surgery S/P TURP Social History Smoking Status: Never smoker Second Hand Exposure: No; Hx Alcohol Use: No Hx Substance Use: No Preferred Language: Maltese Communication Ability: Effective Computer Systems Administrator Required: No Beliefs That Will Affect Care: None Current Living Situation: Spouse Other Information That Helps Us Care for You: No Feels Safe at Home: Yes Safety Concerns: Feels Safe At This Time Assistive Devices: Denture - Upper, Denture - Lower and Glasses Review of Systems Review of Systems: All systems reviewed & are unremarkable except as noted in HPI & below Physical Exam Constitutional: WD/WN, vitals as above well groomed, cooperative and comfortable Eyes: PERRL, conjunctivae normal, anicteric sclerae ENMT: external ear and nose normal, oropharynx normal Respiratory: normal respiratory effort, lungs clear to auscultation Cardiovascular: RRR, no murmur, no edema Gastrointestinal (Abdomen): normal bowel sounds, soft, nontender, no hepatosplenomegaly Skin: no rashes, warm and dry no jaundice Psychiatric: A+Ox3, euthymic affect Lymphatic: no lymphedema Results & Data ([facility]) Vital Signs (Past 12 Hours) Vital Signs Temp Pulse Pulse Resp BP BP Pulse Ox 07/05/22 07:35 36.6 C 62 16 97 07/05/22 03:14 07/05/22 02:49 68 07/05/22 02:49 37.0 C 74 18 153/74 H 96 07/05/22 01:30 62 13 95 07/05/22 01:30 113/73 07/05/22 01:20 64 20 95 07/05/22 01:10 63 25 H 94 07/05/22 01:00 63 27 H 95 07/05/22 01:00 118/68 07/05/22 00:50 64 18 95 07/05/22 00:40 67 19 96 07/05/22 00:30 64 25 H 94 07/05/22 00:30 113/65 07/05/22 00:20 64 16 94 07/05/22 00:10 67 18 94 07/05/22 00:00 64 26 H 94 07/05/22 00:00 101/60 07/04/22 23:50 64 25 H 94 07/04/22 23:40 66 25 H 94 07/04/22 23:30 65 26 H 94 07/04/22 23:30 102/59 L 07/04/22 23:20 69 27 H 94 07/04/22 23:10 68 26 H 94 07/04/22 23:00 71 27 H 94 07/04/22 23:00 113/61 07/04/22 22:50 68 25 H 94 07/04/22 22:40 74 26 H 94 07/04/22 22:30 67 21 94 07/04/22 22:30 104/61 10/17/22 22:20 68 28 H 94 07/04/22 22:10 81 13 94 07/04/22 22:00 72 18 94 07/04/22 22:00 114/71 07/04/22 21:50 86 27 H 94 07/04/22 21:40 88 28 H 94 07/04/22 21:30 89 29 H 93 07/04/22 21:30 111/66 07/04/22 21:25 87 33 H 94 07/04/22 21:25 122/69 07/04/22 21:20 87 27 H 94 07/04/22 21:10 80 31 H 94 07/04/22 21:00 86 29 H 93 07/04/22 20:50 86 29 H 94 07/04/22 20:40 89 29 H 94 07/04/22 20:30 90 28 H 93 O2 Del Method 07/05/22 07:35 Room Air 07/05/22 03:14 Room Air 07/05/22 02:49 07/05/22 02:49 Room Air 07/05/22 01:30 07/05/22 01:30 07/05/22 01:20 07/05/22 01:10 07/05/22 01:00 07/05/22 01:00 07/05/22 00:50 07/05/22 00:40 07/05/22 00:30 07/05/22 00:30 07/05/22 00:20 07/05/22 00:10 07/05/22 00:00 07/05/22 00:00 07/04/22 23:50 07/04/22 23:40 07/04/22 23:30 07/04/22 23:30 07/04/22 23:20 07/04/22 23:10 07/04/22 23:00 07/04/22 23:00 07/04/22 22:50 07/04/22 22:40 07/04/22 22:30 07/04/22 22:30 07/04/22 22:20 07/04/22 22:10 07/04/22 22:00 07/04/22 22:00 07/04/22 21:50 07/04/22 21:40 07/04/22 21:30 07/04/22 21:30 07/04/22 21:25 07/04/22 21:25 07/04/22 21:20 07/04/22 21:10 07/04/22 21:00 07/04/22 20:50 07/04/22 20:40 07/04/22 20:30
--- NOTE | 2022-07-05 09:00 | Electrocardiogram Report ---
Test Reason : Blood Pressure : / mmHG Vent. Rate : 062 BPM Atrial Rate : 062 BPM P-R Int : 164 ms QRS Dur : 078 ms QT Int : 456 ms P-R-T Axes : 047 006 034 degrees QTc Int : 462 ms Normal sinus rhythm Minor Nonspecific ST abnormality Anterolateral leads Abnormal ECG When compared with ECG of 04-JUL-2022 18:21, Premature atrial complexes are no longer Present Vent. rate has decreased BY 40 BPM Confirmed by Jaziel Concepcion ([id number]) on 07/05/2022 9:00:15 AM Referred By: REFERRED SELF Confirmed By:Jaziel Concepcion
--- NOTE | 2022-07-05 09:00 | Electrocardiogram Report ---
Test Reason : Blood Pressure : / mmHG Vent. Rate : 102 BPM Atrial Rate : 102 BPM P-R Int : 152 ms QRS Dur : 078 ms QT Int : 344 ms P-R-T Axes : 057 -20 051 degrees QTc Int : 448 ms Sinus tachycardia with Premature atrial complexes Minor Nonspecific ST abnormality Anterolateral leads Abnormal ECG When compared with ECG of 11-NOV-2019 12:26, Premature atrial complexes are now Present Vent. rate has increased BY 34 BPM Confirmed by Jaziel Concepcion ([id number]) on 07/05/2022 8:59:39 AM Referred By: REFERRED SELF Confirmed By:Jaziel Concepcion
[2022-07-05] MEDS: ACETAMINOPHEN 325 MG TAB PO PRN ×2 (11:17→20:27)
--- NOTE | 2022-07-05 12:56 | Hospitalist Progress Note ---
Date of Service July 05, 2022 Assessment & Plan (1) Sepsis: Plan: GI source with gallstone pancreatitis and ascending cholangitis. He is on Zosyn and awaiting source control in the OR with GI today. Continue monitoring on telemetry. Currently hypertensive. Monitor vitals closely. (2) Acute pancreatitis: Plan: Patient still with abdominal pain, nausea and vomiting. He denies any nausea at this time. Continue n.p.o. pending source control with gallstone removal via ERCP today. Continue IV fluids, Zosyn and supportive management. (3) Choledocholithiasis: Plan: Plan as above. (4) Acute cholangitis: Plan: Plan as above. (5) Hypertension: Plan: Lisinopril was held in the setting of sepsis. He is actually hypertensive because he is so uncomfortable. Will consider restarting lisinopril tomorrow but need to watch hemodynamics during this important day of treatment. (6) CKD (chronic kidney disease), stage III: Plan: Chronic, stable and at his baseline. Continue monitoring BMP (7) JUAN MANUEL (generalized anxiety disorder): Plan: Chronic, difficult to assess as patient is acutely ill. Continue sertraline per home regimen. (8) Hypothyroidism: Plan: Chronic, TSH cannot be assessed at this time as patient is acutely ill. Continue levothyroxine per home regimen. (9) DVT prophylaxis: Plan: Lovenox Full code Disposition-continue telemetry hospitalization at this time. Anne Cota DO [facility] Hospitalist Admission and Anticipated Discharge Date Admission Date: July 05, 2022 Subjective 89-year-old man presented with acute abdominal pain found to have ascending cholangitis and pancreatitis. He is currently delirious and has rigors. He has received Zosyn, is hypertensive and tachycardic and clearly uncomfortable. He is reporting feeling cold and is better with warm blankets. Temp is 38.1 C. He is on his way to the OR for source control. Review of systems is otherwise limited secondary to delirium. Review of Systems Review of Systems: Review of systems is limited secondary to delirium. Physical Exam Physical Exam: CONSTITUTIONAL: WNWD, vitals as above, generally ill- appearing, shakinig rigors and delirium EYES: normal conjunctivae, no scleral icterus ENT: external ear and nose normal, MMM NECK: trachea midline RESPIRATORY: clear to auscultation bilaterally, no crackles, rales or wheezes, normal respiratory effort CARDIOVASCULAR: tachy rate and rhythm, S1 and 2 heard without murmurs, gallops or rubs, no JVD, no peripheral edema CHEST: inspection of chest was normal GASTROINTESTINAL: soft, nontender, ND, no guarding (limited exam as patient is delirious and trying to grab my hands during exam) MUSCULOSKELETAL: strength 5/5 throughout, head is normocephalic and atraumatic SKIN: warm and dry NEUROLOGIC: CN 2-12 grossly intact, no sensory deficit, normal cognition, normal speech PSYCHIATRIC: alert, uncooperative with exam, grabbing at his IV and his gown which is currently in a knot. Unable to follow instructions well 2/2 delirium Results & Data Results & Data ([facility]) Vital Signs (Past 12 Hours) Vital Signs Temp Pulse Pulse Resp BP BP Pulse Ox 07/05/22 11:43 38.1 C H 99 H 20 198/96 H 90 07/05/22 06:15 58 L 07/05/22 07:35 36.6 C 62 16 97 07/05/22 03:14 07/05/22 02:49 68 07/05/22 02:49 37.0 C 74 18 153/74 H 96 07/05/22 01:30 62 13 95 07/05/22 01:30 113/73 07/05/22 01:20 64 20 95 07/05/22 01:10 63 25 H 94 07/05/22 01:00 63 27 H 95 07/05/22 01:00 118/68 07/05/22 00:50 64 18 95 O2 Del Method 07/05/22 11:43 Room Air 07/05/22 06:15 07/05/22 07:35 Room Air 07/05/22 03:14 Room Air 07/05/22 02:49 07/05/22 02:49 Room Air 07/05/22 01:30 07/05/22 01:30 07/05/22 01:20 07/05/22 01:10 07/05/22 01:00 07/05/22 01:00 07/05/22 00:50 Laboratory Results Short CBC 07/04/22 07/05/22 Range/Units 18:13 05:21 WBC 12.87 H 13.82 H (4.8-10.8) K/ul Hgb 15.1 14.6 (14.0-18.0) g/dl Hct 42.1 42.2 (40.1-51.0) % Plt Count 278 291 (130-400) K/uL BMP 07/04/22 07/05/22 18:13 05:21 Sodium 140 139 Potassium 3.8 4.0 Chloride 101 102 Carbon Dioxide 27 29 BUN 13 14 Creatinine 0.83 0.92 Glucose 162 H 117 H Calcium 9.2 9.1 Liver Function 07/04/22 07/05/22 Range/Units 18:13 05:21 Total Bilirubin 3.4 H 4.2 H (0.2-1.0) mg/dl Direct Bilirubin 2.8 H (0-0.2) mg/dl AST 196 H 190 H (13-39) U/L ALT 119 H 132 H (7-52) U/L Alkaline Phosphatase 663 H 584 H (34-104) U/L Albumin 3.6 3.6 (3.4-5.0) gm/dl Medications Administered Current Inpatient Medications Acetaminophen (Acetaminophen 325 Mg Tab) 650 mg PO Q4H PRN PRN Reason: Pain or Fever Stop: 08/04/22 02:48 Last Admin: 07/05/22 11:17 Dose: 650 mg Aspirin (Aspirin 81 Mg Ectab) 81 mg PO HS [facility] Stop: 08/04/22 20:59 Docusate Sodium (Docusate Sodium 100 Mg Cap) 100 mg PO DAILY LINO Stop: 08/04/22 08:59 Last Admin: 07/05/22 08:06 Dose: 100 mg Famotidine 20 mg/ Syringe 5 mls @ 2.5 mls/min IV BID [facility] Stop: 08/04/22 08:59 Last Admin: 07/05/22 08:01 Dose: 2.5 mls/min Lactated Ringer's (Lr) 1,000 mls @ 150 mls/hr IV .Q6H40M [facility] Stop: 08/04/22 02:48 Last Infusion: 07/05/22 12:39 Dose: Infused Piperacillin Sod/Tazobactam (Sod 3.375 gm/ Dextrose) 115 mls @ 28.75 mls/hr IV Q8H [facility]; Protocol Stop: 07/15/22 03:59 Last Admin: 07/05/22 12:35 Dose: 28.8 mls/hr Promethazine HCl 12.5 mg/ (Sodium Chloride) 50.5 mls @ 202 mls/hr IV Q6H PRN PRN Reason: Nausea And Vomiting Stop: 08/04/22 11:43 Levothyroxine Sodium (Levothyroxine Sodium 50 Mcg Tablet) 50 mcg PO DAILYBB [facility] Stop: 08/04/22 06:29 Last Admin: 07/05/22 05:59 Dose: 50 mcg Morphine Sulfate (Morphine Sulfate 2 Mg/Ml Carp) 2 mg IV Q3H PRN PRN Reason: Pain Stop: 07/19/22 02:48 Multivitamins/Minerals (Cerovite Adv Formula Tab) 1 tab PO DAILY LINO Stop: 08/04/22 08:59 Last Admin: 07/05/22 08:01 Dose: 1 tab Nitroglycerin (Nitroglycerin Sl 0.4 Mg/Tab Tab) 0.4 mg SL UD PRN PRN Reason: Chest Pain Stop: 08/04/22 02:48 Ondansetron HCl (Ondansetron Inj 2 Mg/Ml 2 Ml Vial) 4 mg IV Q6H PRN PRN Reason: Nausea Stop: 08/04/22 02:48 Last Admin: 07/05/22 11:09 Dose: 4 mg Psyllium Hydrophilic Mucilloid (Psyllium Or Guar Gum Fiber Powder Packet) 1 pkt PO DAILY LINO Stop: 08/04/22 08:59 Last Admin: 07/05/22 08:01 Dose: 1 pkt Sertraline HCl (Sertraline Hcl 50 Mg Tablet) 25 mg PO QAM LINO Stop: 08/04/22 08:59 Last Admin: 07/05/22 08:01 Dose: 25 mg (1) Sepsis Sepsis type: sepsis due to unspecified organism Sepsis acute organ dysfunction status: unspecified Qualified Code(s): A41.9 - Sepsis, unspecified organism
[2022-07-05] MEDS ORDERED: PROPOFOL IV EMULSION 10 MG/ML 20 ML VIAL IV ONE ×2 (13:25→14:22)
[2022-07-05] MEDS ORDERED: LIDOCAINE 2% MPF LOCAL 5 ML VIAL INFIL ONE (13:25)
--- NOTE | 2022-07-05 13:43 | Anesthesiology Consultation ---
Date of Service July 05, 2022 Assessment & Plan (1) Encounter for pre-operative examination: History Surgery Operation Date: 07/05/22 08:20 Proposed Procedures p Endoscopic Retrograde Cholangiopancreatogram - Noe Hadley DO Height/Weight Height: 5 ft 7 in Weight: 57.3 kg Allergies Allergy/AdvReac Type Severity Reaction Status Date / Time No Known Allergies Allergy Verified 07/04/22 21:56 Medications Home Medications Medication Instructions Recorded Confirmed Last Taken aspirin 81 mg tablet,delayed 81 mg PO HS 12/14/18 07/04/22 07/03/22 release lisinopril 10 mg tablet (Zestril) 10 mg PO QAM 12/14/18 07/04/22 07/04/22 docusate sodium 100 mg capsule 100 mg PO DAILY 07/04/22 07/04/22 07/04/22 levothyroxine 50 mcg tablet 50 mcg PO DAILYBB 07/04/22 07/04/22 07/04/22 melatonin 5 mg tablet 5 mg PO HS 07/04/22 07/04/22 07/03/22 multivitamin with iron-mineral 1 tab PO DAILY 07/04/22 07/04/22 07/04/22 psyllium husk 0.4 gram capsule 0.4 g PO DAILY 07/04/22 07/04/22 07/04/22 (Fiber (psyllium husk)) sertraline 25 mg tablet 25 mg PO QAM 07/04/22 07/04/22 07/04/22 Active Medications Generic Name Dose Route Start Last Admin Trade Name Freq PRN Reason Stop Dose Admin Acetaminophen 650 mg 07/05/22 02:49 07/05/22 11:17 Acetaminophen 325 Mg Tab PO 08/04/22 02:48 650 mg Q4H PRN Administration Pain or Fever Docusate Sodium 100 mg 07/05/22 09:00 07/05/22 08:06 Docusate Sodium 100 Mg Cap PO 08/04/22 08:59 100 mg DAILY LINO Administration Famotidine 20 mg/ Syringe 5 mls @ 2.5 mls/min 07/05/22 09:00 07/05/22 08:01 IV 08/04/22 08:59 2.5 mls/min BID LINO Administration Lactated Ringer's 1,000 mls @ 150 mls/hr 07/05/22 02:49 07/05/22 12:39 Lr IV 08/04/22 02:48 Infused .Q6H40M LINO Infusion Piperacillin Sod/Tazobactam 115 mls @ 28.75 mls/hr 07/05/22 04:00 07/05/22 12:35 Sod 3.375 gm/ Dextrose IV 07/15/22 03:59 28.8 mls/hr Q8H LINO Administration Protocol Levothyroxine Sodium 50 mcg 07/05/22 06:30 07/05/22 05:59 Levothyroxine Sodium 50 Mcg Tablet PO 08/04/22 06:29 50 mcg DAILYBB LINO Administration Multivitamins/Minerals 1 tab 07/05/22 09:00 07/05/22 08:01 Cerovite Adv Formula Tab PO 08/04/22 08:59 1 tab DAILY LINO Administration Ondansetron HCl 4 mg 07/05/22 02:49 07/05/22 11:09 Ondansetron Inj 2 Mg/Ml 2 Ml Vial IV 08/04/22 02:48 4 mg Q6H PRN Administration Nausea Psyllium Hydrophilic Mucilloid 1 pkt 07/05/22 09:00 07/05/22 08:01 Psyllium Or Guar Gum Fiber Powder Packet PO 08/04/22 08:59 1 pkt DAILY LINO Administration Sertraline HCl 25 mg 07/05/22 09:00 07/05/22 08:01 Sertraline Hcl 50 Mg Tablet PO 08/04/22 08:59 25 mg QAM LINO Administration NPO Date Last Intake of Fluids: 07/04/22 Time Last Intake of Fluids: 23:00 Last Intake of Fluids Comment: sip of water 1117 w/med Date Last Intake of Solids: 07/04/22 Time Last Intake of Solids: 17:00 Past Medical History Medical History BPH (benign prostatic hyperplasia) CKD (chronic kidney disease), stage III JUAN MANUEL (generalized anxiety disorder) Hypertension Hypothyroidism Insomnia Macular degeneration Osteoarthritis Skin cancer TYPE UNK - RECENT DIAGNOSIS - NOSE - WILL BE REMOVED 12/20 Past Surgical History Surgical History History of [place] [facility] [place] 2mg versed no issues. History of cholecystectomy History of colonoscopy History of knee surgery S/P TURP Social History Smoking Status: Never smoker Hx Alcohol Use: No Hx Substance Use: No substance use type: does not use Physical Exam Vital Signs Last Vital Signs Temp 37.6 C H 07/05/22 13:17 Pulse 114 H 07/05/22 13:17 Resp 20 07/05/22 13:17 BP 146/69 H 07/05/22 13:17 Pulse Ox 90 07/05/22 13:17 O2 Del Method 07/05/22 13:17 Testing Laboratory Results 07/05/22 05:21 07/05/22 05:21 PT 11.1 Seconds (9.0-12.0) 07/04/22 18:13 INR 1.0 (0.9-1.1) 07/04/22 18:13
--- NOTE | 2022-07-05 13:45 | History & Physical Bridge Note ---
Date of Service July 05, 2022 History & Physical Bridge Note I have examined the patient, reviewed the History & Physical and in the interval since the performance of the History & Physical I have noted the following changes of clinical significance: no changes noted. the patient has signs/symptoms suggestive of cholangitis. I have obtained consent from the patient's as he does not appear to able to give his own consent due to sepsis. We have discussed the risks to include bleeding, infection, pe rforation, pain, pancreaititis, failed biliary cannulation and the need for f/u procedures.
[2022-07-05] MEDS ORDERED: fentaNYL citrate 100 MCG/2 ML VIAL IV PRN (13:46)
[2022-07-05] MEDS ORDERED: ePHEDrine sulfate 50 MG/ML AMP IV PRN (13:46)
[2022-07-05] MEDS ORDERED: ATROPINE SULFATE 0.1 MG/ML 10ML SYR IV PRN (13:46)
[2022-07-05] MEDS ORDERED: MIDAZOLAM HCL 1 MG/ML 2ML VIAL ONE (13:47)
[2022-07-05] MEDS ORDERED: fentaNYL citrate 100 MCG/2 ML VIAL ONE (13:47)
--- NOTE | 2022-07-05 14:46 | GI REPORT ---
Patient Name: Allen Salazar Procedure Date: 07/05/2022 2:05 PM Date of : 1930 Admit Type: Inpatient Age: 89 Gender: Male Attending MD: Noe Hadley DO Procedure: ERCP Providers: Noe Hadley DO Referring MD: Anne Ctoa Do, Philip A. Piljean pierre Indications: Suspected ascending cholangitis, Jaundice Medicines: Monitored Anesthesia Care Complications: No immediate complications. Estimated blood loss: Minimal. Estimated Blood Loss: Estimated blood loss: none. Procedure: Pre-Anesthesia Assessment: - Prior to the procedure, a History and Physical was performed, and patient medications, allergies and sensitivities were reviewed. The patient's tolerance of previous anesthesia was reviewed. - The risks and benefits of the procedure and the sedation options and risks were discussed with the patient. All questions were answered and informed consent was obtained. - Patient identification and proposed procedure were verified prior to the procedure by the physician, the nurse and the import and export clerk. The procedure was verified in the procedure room. - Pre-procedure physical examination revealed no contraindications to sedation. - ASA Grade Assessment: IV - A patient with severe systemic disease that is a constant threat to life. - After reviewing the risks and benefits, the patient was deemed in satisfactory condition to undergo the procedure. - The anesthesia plan was to use monitored anesthesia care (MAC). - Immediately prior to administration of medications, the patient was re-assessed for adequacy to receive sedatives. - The heart rate, respiratory rate, oxygen saturations, blood pressure, adequacy of pulmonary ventilation, and response to care were monitored throughout the procedure. - The physical status of the patient was re-assessed after the procedure. After obtaining informed consent, the scope was passed under direct vision. Throughout the procedure, the patient's blood pressure, pulse, and oxygen saturations were monitored continuously. The Duodenoscope was introduced through the mouth, and advanced to the duodenum and used to inject contrast into the bile duct. The ERCP was accomplished without difficulty. The patient tolerated the procedure well. Findings: A natural sciences department chair film of the abdomen was obtained. Surgical clips, consistent with a previous cholecystectomy, were seen in the area of the right upper quadrant of the abdomen. The esophagus was successfully intubated under direct vision without detailed examination of the pharynx, larynx, and associated structures, and upper GI tract. The upper GI tract was grossly normal. The major papilla was on the rim of a diverticulum. The major papilla contained an impacted stone. The bile duct was deeply cannulated with the short-nosed traction sphincterotome and guidewire. Contrast was injected. I personally interpreted the bile duct images. Contrast extended to the entire biliary tree. The main bile duct contained filling defect(s) thought to be a stone and sludge. Biliary sphincterotomy was made with a monofilament CleverCut distal wire sphincterotome using ERBE electrocautery. There was no post-sphincterotomy bleeding. The biliary tree was swept with an 18 mm balloon starting at the bifurcation. Sludge was swept from the duct. Many stones were removed. No stones remained. Pus was swept from the duct. Two double pigtail 7 Fr by 7 and a 5 cm biliary stents were placed into the common bile duct. Bile flowed through the stents. The stents were in good position. Indomethacin 100 mg was given via suppository to decrease the risk of post-ERCP pancreatitis (PEP). Impression: - The major papilla was on the rim of a diverticulum. - An impacted stone was seen in the major papilla. - A filling defect consistent with a stone and sludge was seen on the cholangiogram. - Choledocholithiasis was found. Complete removal was accomplished by biliary sphincterotomy and balloon extraction. - The biliary tree was swept and pus was found. - Two biliary stents were placed into the common bile duct. - Indomethacin given to decrease risk of post-ERCP pancreatitis. Recommendation: - Avoid aspirin and nonsteroidal anti-inflammatory medicines for 5 days. - Use broad spectrum antibiotics for 10 days. - Repeat ERCP in 6 weeks to remove stent. Noe Hadley D.O. Noe Hadley DO 07/05/2022 2:46:32 PM This report has been signed electronically. Note Initiated On: 07/05/2022 2:05 PM Number of Addenda: 0 I attest to the content of the Intraoperative Record and orders documented therein, exceptions below {[id number]}
--- NOTE | 2022-07-05 14:49 | Fluoroscopy Report ---
[place] ERCP biliary ductal HISTORY: 89 years-old Male for ercp acute right upper quadrant abdominal pain COMPARISON: CT abdomen and pelvis 07/04/2022 TECHNIQUE: 5 spot fluoroscopic images of the abdomen were obtained utilizing 28.1 seconds fluoroscopy time FINDINGS: Endoscope within the duodenum. Cholecystectomy. Cannulation of the common bile duct with retrograde i njection of contrast. Numerous common bile duct filling defects are noted with associated common bile duct dilation. Subsequent images demonstrate balloon sweep of the common bile duct with placement of two common bile duct stents. IMPRESSION: Fluoroscopic assistance as above. ACT 112: Negative or not required by law. The above report was generated using voice recognition software. It may contain grammatical, syntax o r spelling errors. Electronically signed by: Jason Lopes M.D. 07/05/2022 2:48 PM
--- NOTE | 2022-07-05 14:52 | Post Operative Brief Note ---
Immediate Post Op Note v1 Date of Surgery July 05, 2022 Pre & Post Diagnosis Operation Date: 07/05/22 08:20 Pre-Op Diagnosis: Acute cholangitis Post-Op Diagnosis: Acute cholangitis I identified the patient and participated in the time-out.: Yes Procedure Operation Date: 07/05/22 08:20 Actual Procedures p Endoscopic Retrograde Cholangiopancreato - Noe Hadley DO Surgeon Noe Hadley DO Logistical Engineer none Estimated Blood Loss 0 Findings Consistent with Post-Op Diagnosis
--- NOTE | 2022-07-05 14:53 | Communication Note ---
Date of Service: July 05, 2022 The patient underwent urgent ERCP this afternoon for suspected cholangitis. He was found to have numerous stones within the common bile duct in addition to pus consistent with cholangitis. A biliary sphincterotomy was performed and 2 stents were placed. Recommendations Continue antibiotic coverage for total of 10 days Continue IV hydration Avoid nonsteroidals and anticoagulation for 1 week please repeat ercp in 6to8 weeks for biliary stent removal.
--- NOTE | 2022-07-05 15:36 | Anesthesiology Progress Note ---
Date of Service July 05, 2022 Anesthesia Post Procedure Vital Signs Vital Signs: Temp Pulse Pulse Pulse Resp BP BP 07/05/22 15:15 94 H 19 98/56 L 07/05/22 15:05 37.6 C H 96 H 21 93/49 L 07/05/22 14:55 96 H 23 91/51 L 07/05/22 14:45 99 H 22 96/53 L 07/05/22 14:38 36.7 C 98 H 20 93/50 L 07/05/22 13:17 37.6 C H 114 H 20 07/05/22 12:47 37.9 C H 07/05/22 11:43 38.1 C H 99 H 20 07/05/22 06:15 58 L 07/05/22 07:35 36.6 C 62 16 07/05/22 03:14 07/05/22 02:49 68 07/05/22 02:49 37.0 C 74 18 07/05/22 01:30 62 13 07/05/22 01:30 113/73 07/05/22 01:20 64 20 07/05/22 01:10 63 25 H 07/05/22 01:00 63 27 H 07/05/22 01:00 118/68 07/05/22 00:50 64 18 07/05/22 00:40 67 19 07/05/22 00:30 64 25 H 07/05/22 00:30 113/65 07/05/22 00:20 64 16 07/05/22 00:10 67 18 07/05/22 00:00 64 26 H 07/05/22 00:00 101/60 07/04/22 23:50 64 25 H 07/04/22 23:40 66 25 H 07/04/22 23:30 65 26 H 07/04/22 23:30 102/59 L 07/04/22 23:20 69 27 H 07/04/22 23:10 68 26 H 07/04/22 23:00 71 27 H 07/04/22 23:00 113/61 07/04/22 22:50 68 25 H 07/04/22 22:40 74 26 H 07/04/22 22:30 67 21 07/04/22 22:30 104/61 07/04/22 22:20 68 28 H 07/04/22 22:10 81 13 10/17/22 22:00 72 18 07/04/22 22:00 114/71 07/04/22 21:50 86 27 H 07/04/22 21:40 88 28 H 07/04/22 21:30 89 29 H 07/04/22 21:30 111/66 07/04/22 21:25 87 33 H 07/04/22 21:25 122/69 07/04/22 21:20 87 27 H 07/04/22 21:10 80 31 H 07/04/22 21:00 86 29 H 07/04/22 20:50 86 29 H 07/04/22 20:40 89 29 H 07/04/22 20:30 90 28 H 07/04/22 20:20 90 28 H 07/04/22 20:10 92 H 30 H 07/04/22 20:00 93 H 29 H 07/04/22 19:50 94 H 31 H 07/04/22 19:44 97 H 20 07/04/22 19:20 97 H 18 07/04/22 19:10 100 H 32 H 07/04/22 19:00 103 H 33 H 07/04/22 18:50 105 H 32 H 07/04/22 18:40 106 H 34 H 07/04/22 18:30 108 H 30 H 07/04/22 18:20 109 H 34 H 07/04/22 18:16 170/95 H 07/04/22 18:16 111 H 36 H 07/04/22 18:15 115 H 9 L 07/04/22 18:27 115 H 26 H 07/04/22 17:34 38.2 C H 110 H 16 155/90 H BP Pulse Ox O2 Del Method O2 Flow Rate 07/05/22 15:15 96 Nasal Cannula 2 07/05/22 15:05 95 Nasal Cannula 2 07/05/22 14:55 95 Nasal Cannula 3 07/05/22 14:45 96 Nasal Cannula 3 07/05/22 14:38 95 Nasal Cannula 3 07/05/22 13:17 146/69 H 90 Room Air 07/05/22 12:47 07/05/22 11:43 198/96 H 90 Room Air 07/05/22 06:15 07/05/22 07:35 97 Room Air 07/05/22 03:14 Room Air 07/05/22 02:49 07/05/22 02:49 153/74 H 96 Room Air 07/05/22 01:30 95 07/05/22 01:30 07/05/22 01:20 95 07/05/22 01:10 94 07/05/22 01:00 95 07/05/22 01:00 07/05/22 00:50 95 07/05/22 00:40 96 07/05/22 00:30 94 07/05/22 00:30 07/05/22 00:20 94 07/05/22 00:10 94 07/05/22 00:00 94 07/05/22 00:00 07/04/22 23:50 94 07/04/22 23:40 94 07/04/22 23:30 94 07/04/22 23:30 07/04/22 23:20 94 07/04/22 23:10 94 07/04/22 23:00 94 07/04/22 23:00 07/04/22 22:50 94 07/04/22 22:40 94 07/04/22 22:30 94 07/04/22 22:30 07/04/22 22:20 94 07/04/22 22:10 94 07/04/22 22:00 94 07/04/22 22:00 07/04/22 21:50 94 07/04/22 21:40 94 07/04/22 21:30 93 07/04/22 21:30 07/04/22 21:25 94 07/04/22 21:25 07/04/22 21:20 94 07/04/22 21:10 94 07/04/22 21:00 93 07/04/22 20:50 94 07/04/22 20:40 94 07/04/22 20:30 93 07/04/22 20:20 93 07/04/22 20:10 93 07/04/22 20:00 93 07/04/22 19:50 93 07/04/22 19:44 93 07/04/22 19:20 07/04/22 19:10 07/04/22 19:00 07/04/22 18:50 07/04/22 18:40 95 07/04/22 18:30 95 07/04/22 18:20 95 07/04/22 18:16 07/04/22 18:16 95 07/04/22 18:15 94 07/04/22 18:27 170/95 H 96 Room Air 07/04/22 17:34 93 Room Air Pain Intensity Abdomen: Pain Intensity: 2 Transfer of Care Handoff Completed per policy Notes Mental Status: alert / awake / arousable Patient Amnestic to Procedure: Yes Nausea / Vomiting: adequately controlled Pain: adequately controlled Airway Patency, RR, SpO2: stable & adequate BP & HR: stable & adequate Hydration State: stable & adequate Anesthetic Complications: no major complications apparent and Pt Satisfied with anesthetic care
[2022-07-05] MEDS ORDERED: GLUCAGON FOR INJ 1 MG VIAL ONE (17:10)
[2022-07-05] MEDS: ASPIRIN 81 MG ECTAB PO SCH (20:21)
[2022-07-05] MEDS: ENOXAPARIN INJ 40 MG/0.4 ML SYR SQ SCH (20:21)
[2022-07-06] MEDS: PIPERACILLIN/TAZOBACTAM 3.375 GM in DEXTROSE 5% 100 ML IV SCH ×3 (04:10→20:27)
[2022-07-06] MEDS: LACTATED RINGER'S 1,000 ML IV SCH ×2 (05:57→16:20)
[2022-07-06] MEDS: LEVOTHYROXINE SODIUM 50 MCG TABLET PO SCH (05:57)
[2022-07-06 07:09] LABS: Albumin Level 2.7 gm/dl (3.4-5.0); Bilirubin Direct 2.4 mg/dl (0-0.2); Bilirubin,Total 3.6 mg/dl (0.2-1.0); Calcium 8.1 mg/dl (8.5-10.1); Creatinine Clr Calc Pharmacy 30.1 ml/min; Est GFR (African American) 50.4 ml/min; Est GFR (Non-African American) 43.5 ml/min; Magnesium 1.8 mg/dl (1.7-2.4)
[2022-07-06 07:15] LABS: Hematocrit (blood only) 33.5 % (40.1-51.0); Hemoglobin 11.4 g/dl (14.0-18.0); Mean Corpuscular Hemoglobin 34.3 pg (25.0-34.0); Mean Corpuscular Volume 100.9 fL (80.0-100.0); Platelet Count 191 K/uL (130-400); RDW Coefficient of Variation 14.3 % (11.5-14.5); RDW Standard Deviation 52.8 fL (36.4-46.3); Red Blood Count 3.32 M/uL (4.63-6.08); White Blood Count 15.33 K/ul (4.8-10.8)
[2022-07-06] MEDS: SERTRALINE HCL 50 MG TABLET PO SCH (09:00)
[2022-07-06] MEDS: CEROVITE ADV FORMULA TAB PO SCH (09:00)
[2022-07-06] MEDS: PSYLLIUM or GUAR GUM FIBER POWDER PACKET PO SCH (09:01)
--- NOTE | 2022-07-06 09:04 | Gastroenterology Progress Note ---
Date of Service July 06, 2022 Assessment & Plan (1) Acute pancreatitis: (2) Choledocholithiasis: (3) Acute cholangitis: Plan: Pt is a 89 yo male who presented w fever, abd pain, n/v symptoms, noted to have elevated lipase, LFTs, and CT evidence of biliary ductal dilation, obstruction and pancreatitis. Suspect he also has cholangitis given fever and elevated WBC. He is s/p cholecystectomy ERCP performed 07/05/2022 - choledocholithiasis found, removed via balloon extraction, biliary sphincterectomy, pus swept, 2 biliary stents placed. Afebrile since yesterday afternoon. LFTs trending down - Advance diet as tolerated - Avoid ASA and NSAIDs x 5 days - Antibx coverage for 10 days total - ERCP in 6 weeks time to remove biliary stents. - Monitor LFTs - GI to sign off; pls recall prn Admission and Anticipated Discharge Date Admission Date: July 05, 2022 Supervising Physician Co-Signing Physician Notes I saw and evaluated the patient, he looks much improved today and seems to be questions appropriately. He notes that his initial symptoms are much improved as well. The patient significantly better than 24 hours ago although he still has a leukocytosis. Impression: Patient admitted with choledocholithiasis resulting in cholangitis now improved with biliary decompression and stent placement and gallstone extraction Recommendations Advance diet as tolerated Antibiotic coverage for total of 10 days With nonsteroidal and anticoagulation use for 5 days please Repeat ERCP for biliary stent removal in 6 to 8 weeks Call with any questions or concerns, GI to sign off Subjective Pt has mild nausea but not vomiting. Tolerated CL diet. No abd pain but having lower pelvic discomfort, low UOP noted and he is having bladder scan. LFTs decreasing Review of Systems Review of Systems: All systems reviewed & are unremarkable except as noted in HPI & below Physical Exam Constitutional: WD/WN, vitals as above well groomed, cooperative and comfortable Eyes: PERRL, conjunctivae normal, anicteric sclerae ENMT: external ear and nose normal, oropharynx normal Respiratory: normal respiratory effort, lungs clear to auscultation Cardiovascular: RRR, no murmur, no edema Gastrointestinal (Abdomen): normal bowel sounds, soft, nontender, no hepatosplenomegaly Skin: no rashes, warm and dry no jaundice Psychiatric: A+Ox3, euthymic affect Lymphatic: no lymphedema Results & Data ([facility]) Vital Signs (Past 12 Hours) Vital Signs Temp Pulse Pulse Resp BP BP Pulse Ox 07/06/22 07:55 36.5 C 56 L 18 119/63 92 07/06/22 06:20 53 L 07/06/22 04:00 36.8 C 52 L 18 123/71 96 07/06/22 04:00 36.5 C 82 18 130/84 95 07/06/22 00:16 93 07/06/22 00:04 63 07/05/22 23:00 36.6 C 62 18 110/70 95 O2 Del Method O2 Flow Rate 07/06/22 07:55 Room Air 07/06/22 06:20 07/06/22 04:00 Room Air 07/06/22 04:00 Room Air 07/06/22 00:16 Room Air 07/06/22 00:04 07/05/22 23:00 Nasal Cannula 1
[2022-07-06] MEDS: FAMOTIDINE 20 MG in SYRINGE 3 ML IV SCH ×2 (09:06→20:27)
[2022-07-06] MEDS: DOCUSATE SODIUM 100 MG CAP PO SCH (09:06)
[2022-07-06] MEDS ORDERED: lisinopril 5 MG TAB PO ONE (17:24)
--- NOTE | 2022-07-06 17:28 | Hospitalist Progress Note ---
Date of Service July 06, 2022 Assessment & Plan (1) Sepsis: Plan: Secondary to gallstone pancreatitis and ascending cholangitis Continue antibiotics Blood cultures: Negative to date (2) Acute pancreatitis: Plan: Received IV fluids Abdominal pain improved Advance diet as tolerated (3) Choledocholithiasis: Plan: Plan as above. (4) Acute cholangitis: Plan: S/P ERCP performed 07/05/2022 - choledocholithiasis found, removed via balloon extraction, biliary sphincterectomy, pus swept, 2 biliary stents placed Monitor LFTs Blood cultures negative so far Advance diet as tolerated Appreciate GI input Avoid aspirin, NSAIDs for 5 days Continue Zosyn for now. Need to complete 10-day course of antibiotics Needs repeat ERCP in 6 weeks for biliary stent removal Needs follow-up with GI as outpatient (5) Hypertension: Plan: Hold Lisinopril due to TERRENCE Monitor BP (6) CKD (chronic kidney disease), stage III: Plan: TERRENCE on CKD III Cr: 1.4 today Hold lisinopril Avoid nephrotoxic agents as able Continue IV fluids Monitor renal function (7) JUAN MANUEL (generalized anxiety disorder): Plan: Continue sertraline (8) Hypothyroidism: Plan: Continue levothyroxine (9) DVT prophylaxis: Plan: Lovenox SQ Code Status Full code Admission and Anticipated Discharge Date Admission Date: July 05, 2022 Subjective Patient is seen and examined at bedside Reports nausea but no vomiting Tolerating diet Family at bedside Abdominal pain much improved Denies chest pain, dyspnea, dizziness Offers no other complaints Review of Systems Review of Systems: All systems reviewed & are unremarkable except as noted in Subjective Physical Exam Physical Exam: Physical Exam: Vitals signs as noted above General Appearance: Ill-appearing, elderly, thin Head: normocephalic, Atraumatic Eyes: normal inspection, EOMI Neck: supple, Trachea midline Respiratory/Chest: Normal breath sounds, CTA, No accessory muscle use Cardiovascular: S1, S2, No murmur Abdomen/GI:Soft, Non tender, Bowel sounds present Extremities/Musculoskeletal:normal inspection, no edema Neurologic/Psych:AAOX2, grossly no focal neurological deficits Skin: normal color, warm Results & Data Results & Data ([facility]) Vital Signs (Past 12 Hours) Vital Signs Temp Pulse Pulse Resp BP Pulse Ox O2 Del Method 07/06/22 15:39 36.7 C 54 L 18 164/85 H 94 Room Air 07/06/22 11:36 36.6 C 52 L 18 154/82 H 94 Room Air 07/06/22 07:55 36.5 C 56 L 18 119/63 92 Room Air 07/06/22 06:20 53 L Laboratory Results Short CBC 07/06/22 Range/Units 06:24 WBC 15.33 H (4.8-10.8) K/ul Hgb 11.4 L D (14.0-18.0) g/dl Hct 33.5 L (40.1-51.0) % Plt Count 191 (130-400) K/uL BMP 07/06/22 06:24 Sodium 138 Potassium 4.0 Chloride 103 Carbon Dioxide 31 BUN 27 H Creatinine 1.42 H D Glucose 122 H Calcium 8.1 L Liver Function 07/06/22 Range/Units 06:24 Total Bilirubin 3.6 H (0.2-1.0) mg/dl Direct Bilirubin 2.4 H (0-0.2) mg/dl AST 85 H (13-39) U/L ALT 77 H (7-52) U/L Alkaline Phosphatase 336 H (34-104) U/L Albumin 2.7 L (3.4-5.0) gm/dl (1) Sepsis Sepsis type: sepsis due to unspecified organism Sepsis acute organ dysfunction status: unspecified Qualified Code(s): A41.9 - Sepsis, unspecified organism
[2022-07-06] MEDS: ASPIRIN 81 MG ECTAB PO SCH (20:27)
[2022-07-06] MEDS: ENOXAPARIN INJ 40 MG/0.4 ML SYR SQ SCH (20:27)
[2022-07-06] MEDS: SIMETHICONE 80 MG CHEW PO PRN (23:28)
--- NOTE | 2022-07-07 00:53 | Communication Note ---
Date of Service: July 07, 2022 Patient with worsening upper abdominal pain and hematemesis as per RN. No headache as per RN. SBP 190s to 200s. CT abdomen pelvis initial read: What appears to be a biliarystent is in place traversing the pancreatic head and extending into the duodenum. There is prominent dilatation of the duodenum. Periduodenal stranding is present. Differential would include pancreatitis and correlation with pancreatic enzymes is recommended. In addition, the contents of the dilated duodenumare hyperdense which mayreflect an element of hemorrhage. Further GI evaluation is recommended. Portal venous gas is present within the liver. The onlypotential source of the portal venous gas would be the distended/dilated duodenum. Equivocal small droplets of gas are superimposed over a portion of the transverse duodenal wall. Duodenal ischemia not excluded and clinical correlation is recommended Small bilateral pleural effusions and dense basilar atelectasis. AP UGI B Recurrent pancreatitis, recent ERCP Hypertensive urgency secondary to above Home lisinopril recently held due to kidney dysfunction N.p.o. IV PPI for UGI B Hold aspirin and Lovenox subcu for now IVF Follow official CT abdomen pelvis results. Amlodipine for BP control Will request AM provider to update GI.
[2022-07-07] MEDS ORDERED: METOPROLOL TARTRATE 1 MG/ML VIAL IV STA (00:56)
[2022-07-07] MEDS ORDERED: PANTOprazole 80 MG in DEXTROSE 5% 100 ML IV ONE (01:00)
[2022-07-07] MEDS: PROMETHAZINE HCL 12.5 MG in SODIUM CHLORIDE 0.9% 50 ML IV PRN ×2 (01:04→19:31)
[2022-07-07 01:39] LABS: Basophils # (auto) 0.04 K/uL (0-0.2); Basophils % (auto) 0.2 %; Eosinophils # (auto) 0.03 K/uL (0-0.50); Eosinophils % (auto) 0.2 %; Hematocrit (blood only) 36.6 % (40.1-51.0); Hemoglobin 12.7 g/dl (14.0-18.0); Immature Granulocytes # (auto) 0.19 K/uL (0.00-0.02); Lymphocytes # (auto) 0.88 K/uL (1.2-3.4); Lymphocytes % (auto) 4.7 %; Mean Corpuscular Hemoglobin 34.4 pg (25.0-34.0); Mean Corpuscular Hgb Conc 34.7 g/dL (32.0-36.0); Mean Corpuscular Volume 99.2 fL (80.0-100.0); Mean Platelet Volume 9.2 fL (9.4-12.4); Monocytes # (auto) 0.88 K/uL (0.24-0.82); Monocytes % (auto) 4.7 %; Neutrophils # (auto) 16.71 K/uL (1.4-6.5); Neutrophils % (auto) 89.2 %; Platelet Count 273 K/uL (130-400); RDW Coefficient of Variation 13.9 % (11.5-14.5); RDW Standard Deviation 50.9 fL (36.4-46.3); Red Blood Count 3.69 M/uL (4.63-6.08); White Blood Count 18.73 K/ul (4.8-10.8)
[2022-07-07 02:07] LABS: Albumin Level 2.9 gm/dl (3.4-5.0); BUN Creatinine Ratio 29.3 (10-20); Bilirubin,Total 4.5 mg/dl (0.2-1.0); Calcium 8.2 mg/dl (8.5-10.1); Creatinine Clr Calc Pharmacy 46.5 ml/min; Est GFR (African American) 85.2 ml/min; Est GFR (Non-African American) 73.5 ml/min; Globulin 2.8 gm/dl (2.5-4.0); Magnesium 1.7 mg/dl (1.7-2.4); Potassium 3.7 mmol/L (3.5-5.1); Total Protein 5.7 gm/dl (6.0-8.3)
[2022-07-07] MEDS ORDERED: METOCLOPRAMIDE HCL INJ 5 MG/ML 2 ML VIAL IV ONE ×2 (02:28→23:55)
[2022-07-07] MEDS ORDERED: MoRPHine SULFATE 2 MG/ML CARP IV STA (02:28)
[2022-07-07] MEDS ORDERED: hydrALAZINE HCL 20 MG/ML VIAL IV STA ×2 (02:29)
[2022-07-07] MEDS: LACTATED RINGER'S 1,000 ML IV SCH ×2 (02:31→15:23)
[2022-07-07] MEDS ORDERED: MoRPHine SULFATE 4 MG/ML 1 ML CARP\\VIAL IV PRN (02:56)
[2022-07-07] MEDS ORDERED: oxyCODONE HCL IR 5 MG TAB (IMMEDIATE RELEASE) PO PRN (02:56)
[2022-07-07] MEDS ORDERED: ACETAMINOPHEN 500 MG TAB PO PRN (02:56)
[2022-07-07] MEDS: PIPERACILLIN/TAZOBACTAM 3.375 GM in DEXTROSE 5% 100 ML IV SCH ×3 (03:45→21:07)
[2022-07-07] MEDS: amLODIPine BESYLATE 5 MG TAB PO SCH (05:44)
[2022-07-07] MEDS: LEVOTHYROXINE SODIUM 50 MCG TABLET PO SCH (05:44)
[2022-07-07 07:03] LABS: Hematocrit (blood only) 32.8 % (40.1-51.0); Hemoglobin 11.5 g/dl (14.0-18.0)
[2022-07-07] MEDS ORDERED: MAGNESIUM SULFATE / D5W 1 GM/100 ML BAG IV ONE (08:40)
[2022-07-07] MEDS ORDERED: PANTOprazole 40 MG in SYRINGE 0 ML IV SCH (09:00)
[2022-07-07] MEDS ORDERED: lisinopril 10 MG TAB PO SCH (09:00)
--- NOTE | 2022-07-07 09:10 | Gastroenterology Progress Note ---
Date of Service July 07, 2022 Assessment & Plan (1) Acute pancreatitis: (2) Choledocholithiasis: (3) Acute cholangitis: Plan: Pt is a 89 yo male who presented w fever, abd pain, n/v symptoms, noted to have elevated lipase, LFTs, and CT evidence of biliary ductal dilation, obstruction and pancreatitis. Suspect he also has cholangitis given fever and elevated WBC. He is s/p cholecystectomy ERCP performed 07/05/2022 - choledocholithiasis found, removed via balloon extraction, biliary sphincterectomy, pus swept, 2 biliary stents placed. Afebrile since yesterday afternoon. LFTs trending down Overnight pt had coffee ground emesis x 1. No melena CT abd/pelvis showed periduodenal stranding, lipase elevated. H/H stable from yesterday wo significant elevation of BUN - NPO - EGD eval today - Continue LR IVF support -Avoid ASA and NSAIDs x 5 days - Antibx coverage for 10 days total - ERCP in 6 weeks time to remove biliary stents. - Trend LFTs Admission and Anticipated Discharge Date Admission Date: July 05, 2022 Supervising Physician Co-Signing Physician Notes Patient reports that he has no abdominal pain or nausea, there is report of coffee-ground emesis yesterday evening, given this we will proceed with upper endoscopy for further evaluation to evaluate for evidence of peptic ulcer disease or perhaps post sphincterotomy bleeding. Subjective Overnight pt had coffee ground emesis x 1. No melena CT abd/pelvis showed periduodenal stranding, lipase elevated. H/H stable from yesterday wo significant elevation of BUN He is c/o abd pain and mild nausea but no vomiting. Review of Systems Review of Systems: All systems reviewed & are unremarkable except as noted in HPI & below Physical Exam Constitutional: WD/WN, vitals as above well groomed, cooperative and comfortable Eyes: PERRL, conjunctivae normal, anicteric sclerae ENMT: external ear and nose normal, oropharynx normal Respiratory: normal respiratory effort, lungs clear to auscultation Cardiovascular: RRR, no murmur, no edema Gastrointestinal (Abdomen): Soft, TTP, BS present Skin: no rashes, warm and dry no jaundice Psychiatric: A+Ox3, euthymic affect Lymphatic: no lymphedema Results & Data ([facility]) Vital Signs (Past 12 Hours) Vital Signs Temp Pulse Pulse Resp BP BP BP 07/07/22 08:24 37.1 C 84 16 186/75 H 07/07/22 06:28 83 07/07/22 05:42 37.3 C 87 18 195/76 H 07/07/22 03:50 178/88 H 07/07/22 03:02 37.0 C 85 18 176/90 H 07/07/22 02:28 91 H 204/119 H 07/07/22 02:21 91 H 204/119 H 07/07/22 00:54 93 H 07/07/22 00:41 36.9 C 89 18 196/72 H 07/06/22 23:19 37.3 C 85 20 193/94 H 07/06/22 23:31 181/90 H Pulse Ox O2 Del Method 07/07/22 08:24 92 Room Air 07/07/22 06:28 07/07/22 05:42 92 Room Air 07/07/22 03:50 07/07/22 03:02 91 Room Air 07/07/22 02:28 07/07/22 02:21 07/07/22 00:54 07/07/22 00:41 91 Room Air 07/06/22 23:19 91 Room Air 07/06/22 23:31
--- NOTE | 2022-07-07 09:23 | CT Scan Report ---
ABDOMEN AND PELVIS CT WITHOUT CONTRAST CT DOSE: 283.41 mGy.cm HISTORY: Worsening generalized abdominal pain. Upper GI bleed. TECHNIQUE: Multiaxial CT images of the abdomen and pelvis were performed without contrast. A dose lo wering technique was utilized adhering to the principles of ALARA. COMPARISON STUDY: Abdomen and pelvis CT 07/04/2022. FINDINGS: Interval development of small bilateral pleural effusions and patchy bibasilar densities. T his favors atelectasis. However, there are few small nodular groundglass densities within the basal l eft lower lobe which could represent an aspiration pneumonitis. No pneumoperitoneum. No pneumatosis. No suspicious lytic are blastic osseous lesions. Interval placement of 2 common bile duct stents whic h terminate in the duodenum. The proximal portions of the common bile duct stents terminate at the mi d hepatic duct. Proximal to the common bile duct stents the common hepatic duct remains distended wit h hyperdense material. There is persistent intrahepatic bile duct dilatation. Peripheral foci of gas within the liver which are new from the prior study. Given the recent intervention this most likely r epresents pneumobilia. However, the peripheral distribution of the gas raises the possibility of port al venous gas. No mesenteric venous gas identified. Distended and fluid-filled stomach containing a m oderate amount of hyperdense debris suggestive of blood products. The second and third portion of the duodenum are also distended and filled with hyperdense material suggestive of hemorrhage. There is d istention of the large duodenal diverticula at the second portion of the duodenum. There is mild kade l wall thickening of the second and third portion of the duodenum with periduodenal fat stranding. Th is could represent a duodenitis or possibly developing ischemia. An acute pancreatitis could also a s imilar appearance. Gas within the duodenum appears to be intraluminal. No definite evidence for pneum atosis. Prior cholecystectomy. Partially calcified large right renal cyst remains unchanged. Normal l eft kidney and adrenal glands. The unenhanced spleen is unremarkable. No retroperitoneal hematoma or lymphadenopathy. Normal caliber abdominal aorta. Trace pelvic free fluid. The bladder is unremarkable . The prostate gland remains mildly enlarged. No evidence for bowel obstruction. IMPRESSION: 1. The duodenum is distended and filled with hyperdense material suggestive of blood products/hemorrh age. There is also mild thickening of the duodenal wall with periduodenal fat stranding. Therefore, t his could represent an acute pancreatitis versus a nonspecific duodenitis. Underlying duodenal ischem ia is not excluded. 2. The stomach is also mildly distended and filled with a moderate amount of hyperdense material sugg estive of blood products/hemorrhage. 3. Interval placement of 2 common bile duct stents which appear in good position. However, the hepati c duct proximal to the common bile duct stents remains distended and filled with hyperdense material. This could represent residual stones or blood. There is persistent intrahepatic bile duct dilatation . 4. Interval development of peripheral gas within the liver. Given the recent intervention this most l ikely represents pneumobilia. However, the peripheral distribution raises the possibility of portal v enous gas. 5. Nodular groundglass densities within the left lower lobe may represent an aspiration pneumonitis. 6. Small bilateral pleural effusions. 7. Additional findings as described above. ACT 112: Negative or not required by law. Electronically signed by: Jay Elias M.D. 07/07/2022 9:21 AM
[2022-07-07] MEDS: DOCUSATE SODIUM 100 MG CAP PO SCH (09:32)
[2022-07-07] MEDS: SERTRALINE HCL 50 MG TABLET PO SCH (09:45)
[2022-07-07] MEDS: PSYLLIUM or GUAR GUM FIBER POWDER PACKET PO SCH (09:45)
[2022-07-07] MEDS: CEROVITE ADV FORMULA TAB PO SCH (09:45)
--- NOTE | 2022-07-07 10:41 | Anesthesiology Consultation ---
Date of Service July 07, 2022 Assessment & Plan (1) Encounter for pre-operative examination: History Surgery Operation Date: 07/05/22 08:20 Proposed Procedures p Endoscopic Retrograde Cholangiopancreatogram Pietro Hadley DO Operation Date: 07/07/22 16:30 Proposed Procedures p Esophagogastroduodenoscopy Dr Hadley - Noe Hadley, DO Height/Weight Height: 5 ft 7 in Weight: 61.9 kg Allergies Allergy/AdvReac Type Severity Reaction Status Date / Time No Known Allergies Allergy Verified 07/07/22 10:33 Medications Home Medications Medication Instructions Recorded Confirmed Last Taken aspirin 81 mg tablet,delayed 81 mg PO HS 12/14/18 07/04/22 07/03/22 release lisinopril 10 mg tablet (Zestril) 10 mg PO QAM 12/14/18 07/04/22 07/04/22 docusate sodium 100 mg capsule 100 mg PO DAILY 07/04/22 07/04/22 07/04/22 levothyroxine 50 mcg tablet 50 mcg PO DAILYBB 07/04/22 07/04/22 07/04/22 melatonin 5 mg tablet 5 mg PO HS 07/04/22 07/04/22 07/03/22 multivitamin with iron-mineral 1 tab PO DAILY 07/04/22 07/04/22 07/04/22 psyllium husk 0.4 gram capsule 0.4 g PO DAILY 07/04/22 07/04/22 07/04/22 (Fiber (psyllium husk)) sertraline 25 mg tablet 25 mg PO QAM 07/04/22 07/04/22 07/04/22 Active Medications Generic Name Dose Route Start Last Admin Trade Name Freq PRN Reason Stop Dose Admin Amlodipine Besylate 2.5 mg 07/07/22 05:20 07/07/22 05:44 Amlodipine Besylate 5 Mg Tab PO 08/06/22 05:19 2.5 mg QAM LINO Administration Aspirin 81 mg 07/05/22 21:00 07/06/22 20:27 Aspirin 81 Mg Ectab PO 08/04/22 20:59 81 mg HS LINO Administration Docusate Sodium 100 mg 07/05/22 09:00 07/07/22 09:32 Docusate Sodium 100 Mg Cap PO 08/04/22 08:59 Not Given DAILY LINO Enoxaparin Sodium 40 mg 07/05/22 21:00 07/06/22 20:27 Enoxaparin Inj 40 Mg/0.4 Ml Syr SQ 08/04/22 20:59 40 mg HS LINO Administration Famotidine 20 mg/ Syringe 5 mls @ 2.5 mls/min 07/05/22 09:00 07/06/22 20:27 IV 08/04/22 08:59 2.5 mls/min BID LINO Administration Piperacillin Sod/Tazobactam 115 mls @ 28.75 mls/hr 07/05/22 04:00 07/07/22 03:45 Sod 3.375 gm/ Dextrose IV 07/15/22 03:59 28.8 mls/hr Q8H LINO Administration Protocol Promethazine HCl 12.5 mg/ 50.5 mls @ 202 mls/hr 07/05/22 11:44 07/07/22 01:21 Sodium Chloride IV 08/04/22 11:43 Infused Q6H PRN Infusion Nausea And Vomiting Lactated Ringer's 1,000 mls @ 100 mls/hr 07/07/22 02:30 07/07/22 05:28 Lr IV 08/06/22 02:29 100 mls/hr .Q10H LINO Infusion Pantoprazole Sodium 40 mg/ 10 mls @ 5 mls/min 07/07/22 09:00 07/07/22 09:15 Syringe IV 08/06/22 08:59 5 mls/min BID LINO Administration Levothyroxine Sodium 50 mcg 07/05/22 06:30 07/07/22 05:44 Levothyroxine Sodium 50 Mcg Tablet PO 08/04/22 06:29 50 mcg DAILYBB LINO Administration Multivitamins/Minerals 1 tab 07/05/22 09:00 07/07/22 09:45 Cerovite Adv Formula Tab PO 08/04/22 08:59 Not Given DAILY LINO Psyllium Hydrophilic Mucilloid 1 pkt 07/05/22 09:00 07/07/22 09:45 Psyllium Or Guar Gum Fiber Powder Packet PO 08/04/22 08:59 Not Given DAILY LINO Sertraline HCl 25 mg 07/05/22 09:00 07/07/22 09:45 Sertraline Hcl 50 Mg Tablet PO 08/04/22 08:59 Not Given QAM LINO Simethicone 80 mg 07/06/22 22:47 07/06/22 23:28 Simethicone 80 Mg Chew PO 08/05/22 22:46 80 mg Q6H PRN Administration gas NPO Date Last Intake of Fluids: 07/04/22 Time Last Intake of Fluids: 23:00 Last Intake of Fluids Comment: sip of water 1117 w/med Date Last Intake of Solids: 07/04/22 Time Last Intake of Solids: 17:00 Past Medical History Medical History BPH (benign prostatic hyperplasia) CKD (chronic kidney disease), stage III JUAN MANUEL (generalized anxiety disorder) Hypertension Hypothyroidism Insomnia Macular degeneration Osteoarthritis Skin cancer TYPE UNK - RECENT DIAGNOSIS - NOSE - WILL BE REMOVED 12/20 Past Surgical History Surgical History History of cataract extraction with lens replacement RIGHT EYE, [facility] [place], 12/27/18. 2mg versed no issues. History of cholecystectomy History of colonoscopy History of knee surgery S/P TURP Social History Smoking Status: Never smoker Hx Alcohol Use: No Hx Substance Use: No substance use type: does not use Physical Exam Vital Signs Last Vital Signs Temp 37.1 C 07/07/22 08:24 Pulse 84 07/07/22 08:24 Resp 16 07/07/22 08:24 BP 186/75 H 07/07/22 08:24 Pulse Ox 92 07/07/22 08:24 O2 Del Method 07/07/22 08:24 O2 Flow Rate 1 07/05/22 23:00 Constitutional + altered mental status ENMT Mouth: + dentures (upepr and lower) Thyromental Distance: > or= 3.5 Finger Breadths Mallampati Class: II Neck normal visual inspection Respiratory normal respiratory effort Auscultation: lungs clear to auscultation bilaterally Cardiovascular Rate/Rhythm: regular rate and regular rhythm Psychiatric Orientation: alert and oriented x 3 Testing Laboratory Results 07/07/22 06:25 07/07/22 01:17 PT 11.1 Seconds (9.0-12.0) 07/04/22 18:13 INR 1.0 (0.9-1.1) 07/04/22 18:13 Blood Type O Positive 07/07/22 01:17 Antibody Screen NEGATIVE 07/07/22 01:17 07/04/22 18:13 Aerobic Blood Culture - Preliminary Blood No growth in Aerobic bottle after 48 hours. Anaerobic Blood Culture - Preliminary No growth in Anaerobic bottle after 48 hours. 07/04/22 18:20 Aerobic Blood Culture - Preliminary Blood No growth in Aerobic bottle after 48 hours. Anaerobic Blood Culture - Preliminary No growth in Anaerobic bottle after 48 hours.
[2022-07-07] MEDS ORDERED: PROPOFOL IV EMULSION 10 MG/ML 20 ML VIAL IV ONE (10:59)
[2022-07-07] MEDS ORDERED: LIDOCAINE 2% MPF LOCAL 5 ML VIAL INFIL ONE (10:59)
[2022-07-07] MEDS ORDERED: ESMOLOL HCL INJ 10 MG/ML 10ML VIAL IV ONE (11:10)
--- NOTE | 2022-07-07 11:21 | Communication Note ---
Date of Service: July 07, 2022 The patient was to undergo upper endoscopy today for question of coffee-ground emesis yesterday evening. Unfortunately as he was brought into the procedure room his heart rate climbed to approximately 140 to 160 bpm most consistent with new onset atrial fibrillation and rapid ventricular response. Thus the procedure was canceled for today. The patient will be listed for endoscopy tomorrow with possible ERCP on Monday should the patient be found to have evidence of blood sphincterotomy bleeding.
[2022-07-07] MEDS ORDERED: METOPROLOL TARTRATE 1 MG/ML VIAL IV ONE (11:22)
--- NOTE | 2022-07-07 13:43 | Anesthesiology Progress Note ---
Date of Service July 07, 2022 Anesthesia Post Procedure Vital Signs Vital Signs: Temp Pulse Pulse Pulse Resp BP BP 07/07/22 13:30 64 16 149/77 H 07/07/22 13:15 63 16 149/81 H 07/07/22 13:00 69 15 158/87 H 07/07/22 12:45 62 16 141/76 H 07/07/22 12:30 61 16 136/76 07/07/22 12:15 59 L 15 155/80 H 07/07/22 10:36 36.9 C 84 16 163/92 H 07/07/22 08:24 37.1 C 84 16 07/07/22 06:28 83 07/07/22 05:42 37.3 C 87 18 07/07/22 03:50 07/07/22 03:02 37.0 C 85 18 176/90 H 07/07/22 02:28 91 H 204/119 H 07/07/22 02:21 91 H 204/119 H 07/07/22 00:54 93 H 07/07/22 00:41 36.9 C 89 18 196/72 H 07/06/22 23:19 37.3 C 85 20 193/94 H 07/06/22 23:31 181/90 H 07/06/22 20:38 07/06/22 20:38 07/06/22 19:19 36.3 C L 58 L 18 07/06/22 15:39 36.7 C 54 L 18 164/85 H BP Pulse Ox Pulse Ox O2 Del Method O2 Del Method 07/07/22 13:30 93 Room Air 07/07/22 13:15 94 Room Air 07/07/22 13:00 94 Room Air 07/07/22 12:45 92 Room Air 07/07/22 12:30 93 Room Air 07/07/22 12:15 92 Room Air 07/07/22 10:36 93 Room Air 07/07/22 08:24 186/75 H 92 Room Air 07/07/22 06:28 07/07/22 05:42 195/76 H 92 Room Air 07/07/22 03:50 178/88 H 07/07/22 03:02 91 Room Air 07/07/22 02:28 07/07/22 02:21 07/07/22 00:54 07/07/22 00:41 91 Room Air 07/06/22 23:19 91 Room Air 07/06/22 23:31 07/06/22 20:38 Room Air 07/06/22 20:38 94 Room Air 07/06/22 19:19 156/76 H 94 Room Air 07/06/22 15:39 94 Room Air Pain Intensity Abdomen: Pain Intensity: 3 Notes Mental Status: alert / awake / arousable Patient Amnestic to Procedure: No (See note) Nausea / Vomiting: adequately controlled Pain: adequately controlled Airway Patency, RR, SpO2: stable & adequate BP & HR: see Notes below Hydration State: stable & adequate Anesthetic Complications: no major complications apparent and see Notes below Notes: The patient presented to the GI suite for an EGD with Dr. Hadley to evaluate his anemia. He is s/p ERCP on 07/05/22. In the holding area, the patient was note to have an irregular heart rhythm. The ECG on the monitor showed sinus arrhythmia with occasional PVCs, HR 80s. All vital signs were stable. The patient was then taken back to the procedure room. While waiting for the procedure to start the patient suddenly went into atrial fibrillation with RVR with a heart rate in the 160s. I was called to the room by Isabel to evaluate. The patient's BP was stable and he was asymptomatic. The patient had not yet received any anesthesia. Esmolol 50mg IV total was given with an improvement in the patient's heart rate to the 130s. A 12 lead EKG was done and confirmed atrial fibrillation with RVR. I spoke to the hospitalist, Dr. Farr who is managing the patient on the floor. Dr. Hadley was also made aware of the patient's condition. Dr. Farr requested metoprolol 5mg IV be given. The procedure was cancelled and it was decided the patient would be transferred to telemetry. While waiting for a new bed, the patient went back into a sinus rhythm with heart rated in the 60s. Dr. Farr was made aware.
[2022-07-07] MEDS ORDERED: METOPROLOL TARTRATE 1 MG/ML VIAL IV PRN (14:07)
[2022-07-07 14:37] LABS: Hematocrit (blood only) 29.6 % (40.1-51.0); Hemoglobin 10.1 g/dl (14.0-18.0)
--- NOTE | 2022-07-07 15:00 | Electrocardiogram Report ---
Test Reason : Blood Pressure : / mmHG Vent. Rate : 147 BPM Atrial Rate : 133 BPM P-R Int : 000 ms QRS Dur : 072 ms QT Int : 308 ms P-R-T Axes : 000 019 008 degrees QTc Int : 482 ms Atrial fibrillation with rapid ventricular response Nonspecific ST abnormality Anterolateral leads Abnormal ECG When compared with ECG of 05-JUL-2022 05:32, Atrial fibrillation has replaced Sinus rhythm Vent. rate has increased BY 85 BPM Confirmed by aJziel Concepcion ([id number]) on 07/07/2022 2:59:52 PM Referred By: REFERRED SELF Confirmed By:Jaziel Concepcion
[2022-07-07] MEDS: POTASSIUM CHLORIDE / WTR 10 MEQ/100 ML PLCT IV SCH ×2 (15:23→16:53)
[2022-07-07] MEDS: PANTOprazole 40 MG in DEXTROSE 5% 100 ML IV SCH ×2 (15:23→19:49)
--- NOTE | 2022-07-07 16:42 | Hospitalist Progress Note ---
Date of Service July 07, 2022 Assessment & Plan (1) Sepsis: Plan: Secondary to gallstone pancreatitis and ascending cholangitis Continue antibiotics Blood cultures: Negative to date (2) Acute pancreatitis: Plan: Gallstone pancreatitis Also likely developed post ERCP pancreatitis Received IV fluids NPO for now due to GI bleed Hematemesis Likely upper GI bleed Acute blood loss anemia --CT ABD:The duodenum is distended and filled with hyperdense material suggestive of blood products/hemorrhage. There is also mild thickening of the duodenal wall with periduodenal fat stranding. Therefore, this could represent an acute pancreatitis versus a nonspecific duodenitis. Underlying duodenal ischemia is not excluded. The stomach is also mildly distended and filled with a moderate amount of hyperdense material suggestive of blood products/hemorrhage. Interval placement of 2 common bile duct stents which appear in good position. However, the hepatic duct proximal to the common bile duct stents remains distended and filled with hyperdense material. This could represent residual stones or blood. There is persistent intrahepatic bile duct dilatation. Interval development of peripheral gas within the liver. Given the recent intervention this most likely represents pneumobilia. However, the peripheral distribution raises the possibility of portal venous gas. --Aspirin held -- N.p.o. for now Plan for EGD tomorrow Appreciate GI input Continue PPI Monitor H&H (3) Choledocholithiasis: Plan: Plan as above. (4) Acute cholangitis: Plan: S/P ERCP performed 07/05/2022 - choledocholithiasis found, removed via balloon extraction, biliary sphincterectomy, pus swept, 2 biliary stents placed Monitor LFTs Blood cultures negative so far Advance diet as tolerated Appreciate GI input Avoid aspirin, NSAIDs for 5 days Continue Zosyn for now. Need to complete 10-day course of antibiotics Needs repeat ERCP in 6 weeks for biliary stent removal Needs follow-up with GI as outpatient (5) Hypertension: Plan: Hold Lisinopril due to TERRENCE Started on amlodipine for now Monitor BP Atrial fibrillation with RVR Converted to sinus spontaneously Received IV Lopressor Monitor on telemetry Check TSH No anticoagulation given GI bleed Cardiology consulted IV Lopressor as needed (6) CKD (chronic kidney disease), stage III: Plan: TERRENCE on CKD III Cr: 1.4>0.92 Hold lisinopril Avoid nephrotoxic agents as able Continue IV fluids Monitor renal function (7) JUAN MANUEL (generalized anxiety disorder): Plan: Continue sertraline (8) Hypothyroidism: Plan: Continue levothyroxine (9) DVT prophylaxis: Plan: Lovenox SQ--Held due to GI bleed Code Status Full code Admission and Anticipated Discharge Date Admission Date: July 05, 2022 Subjective Patient is seen and examined at bedside Patient was noted to have hematemesis and worsening abdominal pain overnight Plan for EGD today but patient developed A. fib RVR prior to the procedure and so was canceled. Patient complains of abdominal pain associated with nausea 20 Discussed with family at bedside Also discussed with GI today Denies chest pain, dyspnea, dizziness Review of Systems Review of Systems: All systems reviewed & are unremarkable except as noted in Subjective Physical Exam Physical Exam: Physical Exam: Vitals signs as noted above General Appearance: Ill-appearing, elderly, thin Head: normocephalic, Atraumatic Eyes: normal inspection, EOMI Neck: supple, Trachea midline Respiratory/Chest: Normal breath sounds, CTA, No accessory muscle use Cardiovascular: S1, S2, No murmur Abdomen/GI:Soft, mild tender, Bowel sounds present Extremities/Musculoskeletal:normal inspection, no edema Neurologic/Psych:AAOX2, grossly no focal neurological deficits Skin: normal color, warm Results & Data Results & Data ([facility]) Vital Signs (Past 12 Hours) Vital Signs Temp Pulse Pulse Pulse Resp BP BP 07/07/22 16:00 36.9 C 86 20 139/74 07/07/22 13:45 62 16 148/89 H 07/07/22 13:30 64 16 149/77 H 07/07/22 13:15 63 16 149/81 H 07/07/22 13:00 69 15 158/87 H 07/07/22 12:45 62 16 141/76 H 07/07/22 12:30 61 16 136/76 07/07/22 12:15 59 L 15 155/80 H 07/07/22 10:36 36.9 C 84 16 163/92 H 07/07/22 08:24 37.1 C 84 16 186/75 H 07/07/22 06:28 83 07/07/22 05:42 37.3 C 87 18 195/76 H Pulse Ox O2 Del Method 07/07/22 16:00 97 07/07/22 13:45 94 Room Air 07/07/22 13:30 93 Room Air 07/07/22 13:15 94 Room Air 07/07/22 13:00 94 Room Air 07/07/22 12:45 92 Room Air 07/07/22 12:30 93 Room Air 07/07/22 12:15 92 Room Air 07/07/22 10:36 93 Room Air 07/07/22 08:24 92 Room Air 07/07/22 06:28 07/07/22 05:42 92 Room Air Laboratory Results Short CBC 07/07/22 07/07/22 07/07/22 Range/Units 01:17 06:25 14:17 WBC 18.73 H (4.8-10.8) K/ul Hgb 12.7 L 11.5 L 10.1 L (14.0-18.0) g/dl Hct 36.6 L 32.8 L 29.6 L (40.1-51.0) % Plt Count 273 (130-400) K/uL BMP 07/07/22 01:17 Sodium 140 Potassium 3.7 Chloride 105 Carbon Dioxide 26 BUN 27 H Creatinine 0.92 D Glucose 140 H Calcium 8.2 L Liver Function 07/07/22 Range/Units 01:17 Total Bilirubin 4.5 H (0.2-1.0) mg/dl AST 61 H (13-39) U/L ALT 67 H (7-52) U/L Alkaline Phosphatase 319 H (34-104) U/L Albumin 2.9 L (3.4-5.0) gm/dl (1) Sepsis Sepsis type: sepsis due to unspecified organism Sepsis acute organ dysfunction status: unspecified Qualified Code(s): A41.9 - Sepsis, unspecified organism
[2022-07-07] MEDS: SIMETHICONE 80 MG CHEW PO PRN (17:33)
--- NOTE | 2022-07-07 18:51 | Cardiology Consultation ---
Date of Consultation July 07, 2022 Assessment & Plan (1) Paroxysmal atrial fibrillation: Episode of paroxysmal atrial fibrillation noted in the setting of sepsis, recent ERCP, with concerns of possible upper gastrointestinal bleeding. Hemoglobin stable. Patient back in sinus rhythm. Diagnostics: Echocardiogram, repeat EKG in AM. Therapeutics: Continue aspirin 81 mg daily, patient not a candidate for anticoagulation at present. Start metoprolol tartrate 25 mg twice daily. Patient hypertensive earlier this hospital stay. I think he likely has enough room to continue his amlodipine. History of Present Illness Attending Physician: Javid Farr MD History of Present Illness Allne Salazar is a 89-year-old male seen in cardiology consultation per the request of Dr Farr for the evaluation of paroxysmal atrial fibrillation. Patient has no past cardiac history with the exception of hypertension. He was admitted with cholangitis and acute pancreatitis for which he underwent ERCP on 07/05/2022 with placement of 2 biliary stents. He subsequently has developed coffee-ground emesis. An EGD had tentatively planned this morning. Telemetry first and this morning revealed 1 minute of atrial fibrillation at 6:50 AM, with thoughts that to sinus rhythm with premature atrial contractions. The patient was off of telemetry monitoring while in the endoscopy staging area from 10:17 AM until 1407. Prior to EGD, patient was noted to have reverted to atrial fibrillation with rapid ventricular response. EKG performed at 1129 today revealed atrial fibrillation [address] changes. Patient received a dose of IV esmolol. The EGD was canceled. About the time the patient arrived back to the telemetry floor he was back in sinus rhythm. Patient is somewhat of a poor historian, but believes he felt palpitations while he was in the atrial fibrillation. Allergies Allergy/AdvReac Type Severity Reaction Status Date / Time No Known Allergies Allergy Verified 07/07/22 10:33 Home Medications Medication Instructions Recorded Confirmed Type aspirin 81 mg tablet,delayed 81 mg PO HS 12/14/18 07/04/22 History release lisinopril 10 mg tablet (Zestril) 10 mg PO QAM 12/14/18 07/04/22 History docusate sodium 100 mg capsule 100 mg PO DAILY 07/04/22 07/04/22 History levothyroxine 50 mcg tablet 50 mcg PO DAILYBB 07/04/22 07/04/22 History melatonin 5 mg tablet 5 mg PO HS 07/04/22 07/04/22 History multivitamin with iron-mineral 1 tab PO DAILY 07/04/22 07/04/22 History psyllium husk 0.4 gram capsule 0.4 g PO DAILY 07/04/22 07/04/22 History (Fiber (psyllium husk)) sertraline 25 mg tablet 25 mg PO QAM 07/04/22 07/04/22 History Patient History Medical History BPH (benign prostatic hyperplasia) CKD (chronic kidney disease), stage III JUAN MANUEL (generalized anxiety disorder) Hypertension Hypothyroidism Insomnia Macular degeneration Osteoarthritis Skin cancer TYPE UNK - RECENT DIAGNOSIS - NOSE - WILL BE REMOVED 12/20 Surgical History History of cataract extraction with lens replacement RIGHT EYE, [facility] [place], 12/27/18. 2mg versed no issues. History of cholecystectomy History of colonoscopy History of knee surgery S/P TURP Social History Smoking Status: Never smoker Second Hand Exposure: No; Hx Alcohol Use: No Hx Substance Use: No Preferred Language: Luxembourger Communication Ability: Effective Health Information Technician Required: No Beliefs That Will Affect Care: None Current Living Situation: Spouse Other Information That Helps Us Care for You: No Feels Safe at Home: Yes Safety Concerns: Feels Safe At This Time Assistive Devices: Glasses and Walker Review of Systems Review of Systems: All systems reviewed & are unremarkable except as noted in HPI & below Physical Exam Constitutional: WD/WN, vitals as above Respiratory: normal respiratory effort, lungs clear to auscultation Cardiovascular: RRR, no murmur, no edema Gastrointestinal (Abdomen): Mild epigastric tenderness on palpation Neurologic: PERRL, EOMI, accommodation nl, no face palsy, no dysarthria Results & Data ([facility]) Vital Signs (Past 12 Hours) Vital Signs Temp Pulse Pulse Pulse Resp BP BP 07/07/22 17:26 63 07/07/22 16:00 36.9 C 86 20 139/74 07/07/22 13:45 62 16 148/89 H 07/07/22 13:30 64 16 149/77 H 07/07/22 13:15 63 16 149/81 H 07/07/22 13:00 69 15 158/87 H 07/07/22 12:45 62 16 141/76 H 07/07/22 12:30 61 16 136/76 07/07/22 12:15 59 L 15 155/80 H 07/07/22 10:36 36.9 C 84 16 163/92 H 07/07/22 08:24 37.1 C 84 16 186/75 H Pulse Ox O2 Del Method 07/07/22 17:26 07/07/22 16:00 97 07/07/22 13:45 94 Room Air 07/07/22 13:30 93 Room Air 07/07/22 13:15 94 Room Air 07/07/22 13:00 94 Room Air 07/07/22 12:45 92 Room Air 07/07/22 12:30 93 Room Air 07/07/22 12:15 92 Room Air 07/07/22 10:36 93 Room Air 07/07/22 08:24 92 Room Air Laboratory Results Cardiac Enzymes 07/07/22 Range/Units 01:17 AST 61 H (13-39) U/L CBC 07/07/22 07/07/22 07/07/22 Range/Units 01:17 06:25 14:17 WBC 18.73 H (4.8-10.8) K/ul RBC 3.69 L (4.63-6.08) M/uL Hgb 12.7 L 11.5 L 10.1 L (14.0-18.0) g/dl Hct 36.6 L 32.8 L 29.6 L (40.1-51.0) % Plt Count 273 (130-400) K/uL Neut # (Auto) 16.71 H (1.4-6.5) K/uL Lymph # (Auto) 0.88 L (1.2-3.4) K/uL [place] # (Auto) 0.88 H (0.24-0.82) K/uL Eos # (Auto) 0.03 (0-0.50) K/uL Baso # (Auto) 0.04 (0-0.2) K/uL Comprehensive Metabolic Panel 07/07/22 Range/Units 01:17 Sodium 140 (136-145) mmol/L Potassium 3.7 (3.5-5.1) mmol/L Chloride 105 (98-107) mmol/L Carbon Dioxide 26 (21-32) mmol/L BUN 27 H (6-23) mg/dl Creatinine 0.92 D (0.6-1.4) mg/dl Glucose 140 H (70-99(Fasting)) mg/dl Calcium 8.2 L (8.5-10.1) mg/dl AST 61 H (13-39) U/L ALT 67 H (7-52) U/L Alkaline Phosphatase 319 H (34-104) U/L Total Protein 5.7 L (6.0-8.3) gm/dl Albumin 2.9 L (3.4-5.0) gm/dl Intake and Output 07/07/22 07/07/22 07/07/22 06:59 14:59 22:59 Intake Total 462.5 / 3775.0 938 / 1238 300 / 1238 Output Total 350 / 1150 Balance 112.5 / 2625.0 938 / 1238 300 / 1238 Intake: IV 462.5 / 1915.0 938 / 1238 300 / 1238 Lactated Ringer's 1,000 ml @ 177 / 177 823 / 823 100 mls/hr IV .Q10H LINO Rx#: [id number] Magnesium Sulfate / D5w 1 gm In 100 / 100 100 ml @ 50 mls/hr IV ONE ONE Rx#:[id number] PANTOprazole 80 mg In Dextrose 120 / 120 5% 100 ml @ 400 mls/hr IV NOW ONE Rx#:[id number] Piperacillin/Tazobactam 3.375 115 / 345 115 / 115 gm In Dextrose 5% 100 ml @ 28. 75 mls/hr IV Q8H LINO Rx#: [id number] Potassium Chloride / Wtr 10 meq 200 / 200 In 100 ml @ 100 mls/hr IV Q1H LINO Rx#:[id number] Promethazine HCl 12.5 mg In 50.5 / 50.5 Sodium Chloride 0.9% 50 ml @ 202 mls/hr IV Q6H PRN Rx#: [id number] Oral 0 0 Output: Urine 250 / 650 Emesis 100 / 100 Other: Other Intake Source NPO # Unmeasured Voids 1 Weight 61.9 kg 61.9 kg Weight Measurement Method Built in Bedscale Patient Weight 07/08/22 06:59 Weight 61.9 kg
[2022-07-07] MEDS ORDERED: METOPROLOL TARTRATE 25 MG TAB PO ONE (19:00)
[2022-07-07] MEDS: ASPIRIN 81 MG ECTAB PO SCH (21:27)
[2022-07-07] MEDS: ENOXAPARIN INJ 40 MG/0.4 ML SYR SQ SCH (21:27)
[2022-07-08] MEDS: LACTATED RINGER'S 1,000 ML IV SCH ×2 (00:07→10:09)
[2022-07-08] MEDS: PANTOprazole 40 MG in DEXTROSE 5% 100 ML IV SCH ×5 (00:25→21:16)
[2022-07-08] MEDS: PIPERACILLIN/TAZOBACTAM 3.375 GM in DEXTROSE 5% 100 ML IV SCH ×3 (04:52→20:17)
[2022-07-08 06:09] LABS: Hematocrit (blood only) 23.7 % (40.1-51.0); Hemoglobin 8.3 g/dl (14.0-18.0); Mean Corpuscular Hemoglobin 34.2 pg (25.0-34.0); Mean Corpuscular Volume 97.5 fL (80.0-100.0); Mean Platelet Volume 9.5 fL (9.4-12.4); Platelet Count 261 K/uL (130-400); RDW Standard Deviation 50.1 fL (36.4-46.3); Red Blood Count 2.43 M/uL (4.63-6.08)
[2022-07-08 06:44] LABS: Albumin Globulin Ratio 1.2 (0.9-2); Albumin Level 2.6 gm/dl (3.4-5.0); BUN Creatinine Ratio 24.7 (10-20); Bilirubin,Total 6.3 mg/dl (0.2-1.0); Calcium 7.8 mg/dl (8.5-10.1); Creatinine Clr Calc Pharmacy 61.2 ml/min; Est GFR (African American) 95.3 ml/min; Est GFR (Non-African American) 82.2 ml/min; Globulin 2.2 gm/dl (2.5-4.0); Magnesium 1.8 mg/dl (1.7-2.4); Potassium 3.6 mmol/L (3.5-5.1); Total Protein 4.8 gm/dl (6.0-8.3)
[2022-07-08 06:48] LABS: Thyroid Stimulating Hormone 5.241 uIu/ml (0.300-4.500)
[2022-07-08 07:21] LABS: T4 Free Thyroxine 0.74 ng/dl (0.61-1.60)
[2022-07-08] MEDS: LEVOTHYROXINE SODIUM 50 MCG TABLET PO SCH ×2 (08:30→18:25)
[2022-07-08] MEDS ORDERED: hydrALAZINE HCL 20 MG/ML VIAL IV ONE (08:42)
--- NOTE | 2022-07-08 08:46 | Electrocardiogram Report ---
Test Reason : Blood Pressure : / mmHG Vent. Rate : 080 BPM Atrial Rate : 141 BPM P-R Int : 144 ms QRS Dur : 076 ms QT Int : 382 ms P-R-T Axes : 039 003 027 degrees QTc Int : 440 ms Sinus tachycardia with Blocked Premature atrial complexes Otherwise normal ECG When compared with ECG of 07-JUL-2022 11:29, Sinus rhythm has replaced Atrial fibrillation Vent. rate has decreased BY 67 BPM Confirmed by Jaziel Concepcion ([id number]) on 07/08/2022 8:46:11 AM Referred By: REFERRED SELF Confirmed By:Jaziel Concepcion
[2022-07-08] MEDS: PROMETHAZINE HCL 12.5 MG in SODIUM CHLORIDE 0.9% 50 ML IV PRN (08:56)
[2022-07-08] MEDS ORDERED: METOPROLOL TARTRATE 25 MG TAB PO SCH (09:00)
--- NOTE | 2022-07-08 09:30 | Gastroenterology Progress Note ---
Date of Service July 08, 2022 Assessment & Plan (1) Choledocholithiasis: Plan: 89 year old male who admitted w/ fever, abd pain, n/v w/ elevated lipase, LFTs, and CT evidence of biliary ductal dilation, obstruction and pancreatitis. S/P ERCP performed 07/05/2022 w/ choledocholithiasis removed via balloon extraction, biliary sphincterectomy, pus swept, 2 biliary stents placed. Afebrile since yesterday afternoon. LFTs trending down In the last 48 hours had coffee ground emesis/hematemesis x [address] shows periduodenal stranding, lipase elevated.. BUN remains normal, however Tbili trending up and HGB trending down concerning for a post sphincterotomy bleed - NPO - Appreciate cardiology recommendations - EGD/ERCP evaluation today - Continue LR IVF support -Avoid ASA and NSAIDs x 5 days - Antibx coverage for 10 days total Thank you for allowing us to participate in the care of this patient. Please call with any acute changes, questions or concerns. Please see addendum below with additional recommendation from my supervising physician. Plan I saw and evaluated the patient. He has had several episodes of melena in addition to a question of hematemesis. Given the clinical scenario and the increase of his liver associated enzymes it is most compatible with a post sphincterotomy bleed. Given the nature of his symptoms I think this is an urgent case and should be done as soon as possible. I did discuss the increased complexity of the patient's case with both him and his , in light of his recent course of sepsis, active gastrointestinal bleeding and elderly age. Plan ERCP with stent exchange Possible upper endoscopy Avoid anticoagulation and antiplatelet agents please Admission and Anticipated Discharge Date Admission Date: July 05, 2022 Subjective Pt was seen and evaluated, chart reviewed. Family at bedside. Nursing at bedside. Endorses two episodes of hematemesis/coffee ground emesis last evening. This AM, no pain, nausea, vomiting. Denies any black stools but no BM documented since 07/06. HGB trending down, 8.3 Tbili trending up, 6.3 Review of Systems Review of Systems: All systems reviewed & are unremarkable except as noted in HPI & below Physical Exam Constitutional: WD/WN, vitals as above Neck: normal visual inspection and trachea midline Respiratory: normal respiratory effort, lungs clear to auscultation Cardiovascular: Rate/Rhythm: + tachycardic Gastrointestinal (Abdomen): normal bowel sounds, soft, nontender, no hepatosplenomegaly Results & Data ([facility]) Vital Signs (Past 12 Hours) Vital Signs Temp Pulse Pulse Resp BP BP BP 07/08/22 08:57 155 H 164/97 H 07/08/22 08:00 36.8 C 79 18 169/87 H 07/08/22 03:31 36.8 C 96 H 18 172/92 H 07/07/22 23:55 36.6 C 91 H 18 169/97 H 07/07/22 23:54 81 Pulse Ox O2 Del Method 07/08/22 08:57 07/08/22 08:00 97 07/08/22 03:31 91 Room Air 07/07/22 23:55 91 Room Air 07/07/22 23:54 Laboratory Results 07/08/22 07/08/22 07/08/22 Range/Units 05:25 05:25 05:25 WBC 18.90 H (4.8-10.8) K/ul RBC 2.43 L (4.63-6.08) M/uL Hgb 8.3 L (14.0-18.0) g/dl Hct 23.7 L (40.1-51.0) % MCV 97.5 (80.0-100.0) fL MCH 34.2 H (25.0-34.0) pg MCHC 35.0 (32.0-36.0) g/dL RDW Std Deviation 50.1 H (36.4-46.3) fL RDW Coeff of Lorin 14.0 (11.5-14.5) % Plt Count 261 (130-400) K/uL MPV 9.5 (9.4-12.4) fL Sodium 140 (136-145) mmol/L Potassium 3.6 (3.5-5.1) mmol/L Chloride 106 (98-107) mmol/L Carbon Dioxide 29 (21-32) mmol/L Anion Gap 5 (3-11) BUN 18 (6-23) mg/dl Creatinine 0.73 (0.6-1.4) mg/dl Est Cr Clr Drug Dosing 61.2 ml/min Est GFR ( Amer) 95.3 ml/min Est GFR (Non-Af Amer) 82.2 ml/min BUN/Creatinine Ratio 24.7 H (10-20) Glucose 136 H (70-99(Fasting)) mg/dl Calcium 7.8 L (8.5-10.1) mg/dl Magnesium 1.8 (1.7-2.4) mg/dl Total Bilirubin 6.3 H (0.2-1.0) mg/dl AST 321 H (13-39) U/L ALT 174 H (7-52) U/L Alkaline Phosphatase 426 H (34-104) U/L Total Protein 4.8 L (6.0-8.3) gm/dl Albumin 2.6 L (3.4-5.0) gm/dl Globulin 2.2 L (2.5-4.0) gm/dl Albumin/Globulin Ratio 1.2 (0.9-2) TSH 5.241 H (0.300-4.500) uIu/ml Free T4 0.74 (0.61-1.60) ng/dl 07/07/22 Range/Units 14:17 WBC (4.8-10.8) K/ul RBC (4.63-6.08) M/uL Hgb 10.1 L (14.0-18.0) g/dl Hct 29.6 L (40.1-51.0) % MCV (80.0-100.0) fL MCH (25.0-34.0) pg MCHC (32.0-36.0) g/dL RDW Std Deviation (36.4-46.3) fL RDW Coeff of Lorin (11.5-14.5) % Plt Count (130-400) K/uL MPV (9.4-12.4) fL Sodium (136-145) mmol/L Potassium (3.5-5.1) mmol/L Chloride (98-107) mmol/L Carbon Dioxide (21-32) mmol/L Anion Gap (3-11) BUN (6-23) mg/dl Creatinine (0.6-1.4) mg/dl Est Cr Clr Drug Dosing ml/min Est GFR ( Amer) ml/min Est GFR (Non-Af Amer) ml/min BUN/Creatinine Ratio (10-20) Glucose (70-99(Fasting)) mg/dl Calcium (8.5-10.1) mg/dl Magnesium (1.7-2.4) mg/dl Total Bilirubin (0.2-1.0) mg/dl AST (13-39) U/L ALT (7-52) U/L Alkaline Phosphatase (34-104) U/L Total Protein (6.0-8.3) gm/dl Albumin (3.4-5.0) gm/dl Globulin (2.5-4.0) gm/dl Albumin/Globulin Ratio (0.9-2) TSH (0.300-4.500) uIu/ml Free T4 (0.61-1.60) ng/dl
[2022-07-08] MEDS ORDERED: SODIUM CHLORIDE 0.9% 250 ML IV PRN (12:41)
[2022-07-08] MEDS ORDERED: DEXAMETHASONE SOD INJ 4 MG/ML VIAL ONE (12:42)
[2022-07-08] MEDS ORDERED: ONDANSETRON INJ 2 MG/ML 2 ML VIAL ONE (12:42)
[2022-07-08] MEDS ORDERED: PROPOFOL IV EMULSION 10 MG/ML 20 ML VIAL IV ONE (12:42)
[2022-07-08] MEDS ORDERED: fentaNYL citrate 100 MCG/2 ML VIAL ONE ×2 (12:42→15:11)
[2022-07-08] MEDS ORDERED: SUCCINYLCHOLINE CHLORIDE 20 MG/ML 10 ML VIAL IV ONE (12:45)
[2022-07-08] MEDS ORDERED: LIDOCAINE 2% MPF LOCAL 5 ML VIAL INFIL ONE (12:45)
--- NOTE | 2022-07-08 13:02 | Cardiology Progress Note ---
Date of Service July 08, 2022 Assessment & Plan (1) Paroxysmal atrial fibrillation: (2) Acute cholangitis: (3) Acute pancreatitis: Plan: Hemoglobin has declined from 10.1 yesterday to 8.3. Total bilirubin has increased from 4.5 yesterday to 6.3. Patient received a dose of metoprolol tartrate 25 mg in the evening of 07/07/2022, is a.m. dose this morning was held as he is n.p.o. for tentative EGD/ERCP. As noted he had a recurrent episode of atrial fibrillation that lasted about an hour this morning. At this time, we will discontinue his oral metoprolol, and change the IV metoprolol order to a standing dose of metoprolol 2.5 mg IV every 6 hours with hold for heart rate of less than 60 bpm, and systolic blood pressure less than 100 mmHg. Echocardiogram reassuring. Based on his worsening illness and his declining hemoglobin and elevated liver tests, EGD/ERCP certainly seem to be indicated, and I think patient is a reasonable candidate for anesthesia, with benefits of the procedure outweighing the risks. As previously noted, he is not a candidate for systemic anticoagulation in the setting of declining hemoglobin. Continue SCDs for DVT prophylaxis. Dr Stone will be rounding for service on 07/09/2022. Admission and Anticipated Discharge Date Admission Date: July 05, 2022 Subjective Patient seen in cardiology follow-up. At the time my assessment yesterday he was in sinus rhythm and having had an episode of atrial fibrillation in the endoscopy staging unit. He had no cardiac symptoms. This morning from 8:43 AM until 9:51 PM, recurrent episode of atrial fibrillation with rapid ventricular response was observed. He converted to sinus rhythm spontaneously. I was back in sinus rhythm at the time of my exam. Other than vague nauseousness, he is without complaint. He is ill in appearance. Afebrile. Physical Exam Constitutional: + ill appearing; no acute distress Respiratory: normal respiratory effort, lungs clear to auscultation Cardiovascular: RRR, no murmur, no edema Gastrointestinal (Abdomen): Mild epigastric tenderness Neurologic: PERRL, EOMI, accommodation nl, no face palsy, no dysarthria Results & Data ([facility]) Vital Signs (Past 12 Hours) Vital Signs Temp Pulse Pulse Resp BP BP BP 07/08/22 12:00 36.7 C 77 20 152/76 H 07/08/22 08:57 155 H 164/97 H 07/08/22 08:00 36.8 C 79 18 169/87 H 07/08/22 03:31 36.8 C 96 H 18 172/92 H Pulse Ox O2 Del Method 07/08/22 12:00 99 07/08/22 08:57 07/08/22 08:00 97 07/08/22 03:31 91 Room Air Laboratory Results Cardiac Enzymes 07/08/22 Range/Units 05:25 AST 321 H (13-39) U/L CBC 07/07/22 07/08/22 Range/Units 14:17 05:25 WBC 18.90 H (4.8-10.8) K/ul RBC 2.43 L (4.63-6.08) M/uL Hgb 10.1 L 8.3 L (14.0-18.0) g/dl Hct 29.6 L 23.7 L (40.1-51.0) % Plt Count 261 (130-400) K/uL Comprehensive Metabolic Panel 07/08/22 Range/Units 05:25 Sodium 140 (136-145) mmol/L Potassium 3.6 (3.5-5.1) mmol/L Chloride 106 (98-107) mmol/L Carbon Dioxide 29 (21-32) mmol/L BUN 18 (6-23) mg/dl Creatinine 0.73 (0.6-1.4) mg/dl Glucose 136 H (70-99(Fasting)) mg/dl Calcium 7.8 L (8.5-10.1) mg/dl AST 321 H (13-39) U/L ALT 174 H (7-52) U/L Alkaline Phosphatase 426 H (34-104) U/L Total Protein 4.8 L (6.0-8.3) gm/dl Albumin 2.6 L (3.4-5.0) gm/dl Diagnostic Findings EKG today 07/08/2022 at 6:06 AM: Sinus rhythm with frequent PACs. Compared to prior, sinus rhythm with PACs has replaced atrial fibrillation. Echocardiogram performed this morning and reviewed independently Normal left ventricular wall motion, LVEF normal at 66 5%, mild aortic valve regurgitation Grade 1 diastolic dysfunction
[2022-07-08 13:33] LABS: Hematocrit (blood only) 22.9 % (40.1-51.0); Mean Corpuscular Hemoglobin 33.5 pg (25.0-34.0); Mean Corpuscular Hgb Conc 34.9 g/dL (32.0-36.0); Mean Corpuscular Volume 95.8 fL (80.0-100.0); Mean Platelet Volume 9.2 fL (9.4-12.4); Platelet Count 247 K/uL (130-400); RDW Coefficient of Variation 14.1 % (11.5-14.5); RDW Standard Deviation 49.4 fL (36.4-46.3); Red Blood Count 2.39 M/uL (4.63-6.08); White Blood Count 18.14 K/ul (4.8-10.8)
--- NOTE | 2022-07-08 13:33 | Anesthesiology Consultation ---
Date of Service July 08, 2022 Assessment & Plan ASA [id number] Proposed Anesthesia Anesthesia Type: General Risk / Benefits Reviewed With: PT / POA / Parent / Guardian, Accepts Plan and Informed Consent Obtained Additional Comments: cardiac note and echo reviewed History Surgery Operation Date: 07/05/22 08:20 Proposed Procedures p Endoscopic Retrograde Cholangiopancreatogram - Noe Hadley, DO Operation Date: 07/07/22 16:30 Proposed Procedures p Esophagogastroduodenoscopy Dr Jomar Hadley, DO Operation Date: 07/08/22 10:55 Proposed Procedures p Endoscopic Retrograde Cholangiopancreatogram - Noe Hadley, DO s Esophagogastroduodenoscopy - Noe Hadley, DO Height/Weight Height: 5 ft 7 in Weight: 63.1 kg Allergies Allergy/AdvReac Type Severity Reaction Status Date / Time No Known Allergies Allergy Verified 07/07/22 10:33 Medications Home Medications Medication Instructions Recorded Confirmed Last Taken aspirin 81 mg tablet,delayed 81 mg PO HS 12/14/18 07/04/22 07/03/22 release lisinopril 10 mg tablet (Zestril) 10 mg PO QAM 12/14/18 07/04/22 07/04/22 docusate sodium 100 mg capsule 100 mg PO DAILY 07/04/22 07/04/22 07/04/22 levothyroxine 50 mcg tablet 50 mcg PO DAILYBB 07/04/22 07/04/22 07/04/22 melatonin 5 mg tablet 5 mg PO HS 07/04/22 07/04/22 07/03/22 multivitamin with iron-mineral 1 tab PO DAILY 07/04/22 07/04/22 07/04/22 psyllium husk 0.4 gram capsule 0.4 g PO DAILY 07/04/22 07/04/22 07/04/22 (Fiber (psyllium husk)) sertraline 25 mg tablet 25 mg PO QAM 07/04/22 07/04/22 07/04/22 Active Medications Generic Name Dose Route Start Last Admin Trade Name Freq PRN Reason Stop Dose Admin Amlodipine Besylate 2.5 mg 07/07/22 05:20 07/07/22 05:44 Amlodipine Besylate 5 Mg Tab PO 08/06/22 05:19 2.5 mg QAM LINO Administration Aspirin 81 mg 07/05/22 21:00 07/07/22 21:27 Aspirin 81 Mg Ectab PO 08/04/22 20:59 81 mg HS LINO Administration Docusate Sodium 100 mg 07/05/22 09:00 07/07/22 09:32 Docusate Sodium 100 Mg Cap PO 08/04/22 08:59 Not Given DAILY LINO Enoxaparin Sodium 40 mg 07/05/22 21:00 07/07/22 21:27 Enoxaparin Inj 40 Mg/0.4 Ml Syr SQ 08/04/22 20:59 40 mg HS LINO Administration Piperacillin Sod/Tazobactam 115 mls @ 28.75 mls/hr 07/05/22 04:00 07/08/22 09:20 Sod 3.375 gm/ Dextrose IV 07/15/22 03:59 Infused Q8H LINO Infusion Protocol Promethazine HCl 12.5 mg/ 50.5 mls @ 202 mls/hr 07/05/22 11:44 07/08/22 09:20 Sodium Chloride IV 08/04/22 11:43 Infused Q6H PRN Infusion Nausea And Vomiting Lactated Ringer's 1,000 mls @ 60 mls/hr 07/07/22 02:30 07/08/22 10:09 Lr IV 08/06/22 02:29 60 mls/hr .[id number] LINO Administration Pantoprazole Sodium 40 mg/ 100 mls @ 20 mls/hr 07/07/22 11:15 07/08/22 04:33 Dextrose IV 08/06/22 11:14 8 mg/hr Q5H LINO 20 mls/hr Administration 8 MG/HR Levothyroxine Sodium 50 mcg 07/05/22 06:30 07/07/22 05:44 Levothyroxine Sodium 50 Mcg Tablet PO 08/04/22 06:29 50 mcg DAILYBB LINO Administration Multivitamins/Minerals 1 tab 07/05/22 09:00 07/07/22 09:45 Cerovite Adv Formula Tab PO 08/04/22 08:59 Not Given DAILY LINO Psyllium Hydrophilic Mucilloid 1 pkt 07/05/22 09:00 07/07/22 09:45 Psyllium Or Guar Gum Fiber Powder Packet PO 08/04/22 08:59 Not Given DAILY LINO Sertraline HCl 25 mg 07/05/22 09:00 07/07/22 09:45 Sertraline Hcl 50 Mg Tablet PO 08/04/22 08:59 Not Given QAM LINO Simethicone 80 mg 07/06/22 22:47 07/07/22 17:33 Simethicone 80 Mg Chew PO 08/05/22 22:46 80 mg Q6H PRN Administration gas NPO Date Last Intake of Fluids: 07/07/22 Time Last Intake of Fluids: 23:00 Last Intake of Fluids Comment: last evening "maybe" per patient Date Last Intake of Solids: 07/04/22 Time Last Intake of Solids: 17:00 Last Intake of Solids Comment: patient thinks it was a "couple days ago" Past Medical History Medical History BPH (benign prostatic hyperplasia) CKD (chronic kidney disease), stage III JUAN MANUEL (generalized anxiety disorder) Hypertension Hypothyroidism Insomnia Macular degeneration Osteoarthritis Skin cancer TYPE UNK - RECENT DIAGNOSIS - NOSE - WILL BE REMOVED / Exercise / Class Metabolic Activity II 4-5 Yardwork/Stairs/Walk up hill Past Surgical History Surgical History History of cataract extraction with lens replacement RIGHT EYE, [facility] [place], 12/27/18. 2mg versed no issues. History of cholecystectomy History of colonoscopy History of knee surgery S/P TURP Past Anesthesia History No Hx of Anesthesia Complications and No Family Hx of Anesthesia Complications History of PONV No Hx of PONV and No Hx of Motion Sickness Social History Smoking Status: Never smoker Hx Alcohol Use: No Hx Substance Use: No substance use type: does not use Review of Systems denies fever/cough/ colds/ chest pain/ SOB/ DHAVAL denies DHAVAL Physical Exam Vital Signs Last Vital Signs Temp 37.4 C 07/08/22 13:10 Pulse 80 07/08/22 13:10 Resp 20 07/08/22 13:10 BP 168/83 H 07/08/22 13:10 Pulse Ox 91 07/08/22 13:10 O2 Del Method 07/08/22 13:10 O2 Flow Rate 1 07/05/22 23:00 ENMT Mouth: + poor dentition (multiple missing); no TMJ abnormality and no dentition abnormality Thyromental Distance: > or= 3.5 Finger Breadths Mallampati Class: III Neck neck extension not limited Respiratory normal respiratory effort; no respiratory distress Auscultation: lungs clear to auscultation bilaterally Cardiovascular Rate/Rhythm: regular rate and regular rhythm Neurologic moves all extremities Psychiatric Orientation: alert and oriented x 3 Testing Laboratory Results 07/08/22 05:25 PT 11.1 Seconds (9.0-12.0) 07/04/22 18:13 INR 1.0 (0.9-1.1) 07/04/22 18:13 Blood Type O Positive 07/07/22 01:17 Antibody Screen NEGATIVE 07/07/22 01:17 07/04/22 18:13 Aerobic Blood Culture - Preliminary Blood No growth in Aerobic bottle after 48 hours. Anaerobic Blood Culture - Preliminary No growth in Anaerobic bottle after 48 hours. 07/04/22 18:20 Aerobic Blood Culture - Preliminary Blood No growth in Aerobic bottle after 48 hours. Anaerobic Blood Culture - Preliminary No growth in Anaerobic bottle after 48 hours.
--- NOTE | 2022-07-08 14:07 | History & Physical Bridge Note ---
Date of Service July 08, 2022 History & Physical Bridge Note I have examined the patient, reviewed the History & Physical and in the interval since the performance of the History & Physical I have noted the following changes of clinical significance: no changes noted
--- NOTE | 2022-07-08 14:14 | Hospitalist Progress Note ---
Date of Service July 08, 2022 Assessment & Plan (1) Sepsis: Plan: Secondary to gallstone pancreatitis and ascending cholangitis Continue antibiotics>>Zosyn Blood cultures: Negative to date Persistent leukocytosis (2) Acute pancreatitis: Plan: Gallstone pancreatitis Also likely developed post ERCP pancreatitis Received IV fluids NPO for now due to GI bleed/EGD and ERCP Acute GI Bleeding Likely from sphincterotomy site Acute blood loss anemia --CT ABD:The duodenum is distended and filled with hyperdense material suggestive of blood products/hemorrhage. There is also mild thickening of the duodenal wall with periduodenal fat stranding. Therefore, this could represent an acute pancreatitis versus a nonspecific duodenitis. Underlying duodenal ischemia is not excluded. The stomach is also mildly distended and filled with a moderate amount of hyperdense material suggestive of blood products/hemorrhage. Interval placement of 2 common bile duct stents which appear in good position. However, the hepatic duct proximal to the common bile duct stents remains distended and filled with hyperdense material. This could represent residual stones or blood. There is persistent intrahepatic bile duct dilatation. Interval development of peripheral gas within the liver. Given the recent intervention this most likely represents pneumobilia. However, the peripheral distribution raises the possibility of portal venous gas. -S/P EGD: Normal esophagus. Clotted blood in the gastric fundus. Blood in the duodenum, second portion of the duodenum and third portion of duodenum. Duode nal diverticulum. Large clot removal resulting in incomplete clearance with fair visualization. The biliary tree was swept and clots performed. 1 covered metal stent was placed into the common bile duct to tamponade the sphincterotomy site. Stent was removed from the biliary tree. --Aspirin held -- N.p.o. for now Appreciate GI input Continue PPI Monitor H&H Transfuse PRBCs as needed Continue broad-spectrum antibiotics for 2 weeks If rebleeding occurs, will need to be transferred to tertiary care facility for IR for pulm Will need repeat ERCP in 6 weeks for stent removal (3) Choledocholithiasis: Plan: Plan as above. (4) Acute cholangitis: Plan: S/P ERCP performed 07/05/2022 - choledocholithiasis found, removed via balloon extraction, biliary sphincterectomy, pus swept, 2 biliary stents placed Monitor LFTs Blood cultures negative so far Advance diet as tolerated Appreciate GI input Avoid aspirin, NSAIDs for 5 days Continue Zosyn for now. Need to complete 2 week course of antibiotics Needs repeat ERCP in 6 weeks for biliary stent removal Needs follow-up with GI as outpatient (5) Hypertension: Plan: Hold Lisinopril due to TERRENCE Started on amlodipine for now Monitor BP Atrial fibrillation with RVR ECHO: Left ventricle wall motion is normal. Left ventricle systolic function is normal. EF 60 to 65%. Mild aortic regurgitation. Grade 1 diastolic dysfunction Converted to sinus spontaneously Received IV Lopressor Monitor on telemetry TSH:5.2 No anticoagulation given GI bleed Appreciate Cardiology Input IV Lopressor 2.5 mg Q6H (6) CKD (chronic kidney disease), stage III: Plan: TERRENCE on CKD III Cr: 1.4>0.92> 0.73 Hold lisinopril Avoid nephrotoxic agents as able Continue gentle IV fluids Monitor renal function (7) JUAN MANUEL (generalized anxiety disorder): Plan: Continue sertraline (8) Hypothyroidism: Plan: Continue levothyroxine (9) DVT prophylaxis: Plan: Lovenox SQ--Held due to GI bleed Code Status Full code Admission and Anticipated Discharge Date Admission Date: July 05, 2022 Subjective Patient is seen and examined at bedside Had an episode of hematemesis overnight Went into A. fib RVR this morning but later resolved States having mild abdominal discomfort this morning Discussed with patient's family at bedside Plan for EGD today Denies chest pain, dyspnea, dizziness Review of Systems Review of Systems: All systems reviewed & are unremarkable except as noted in Subjective Physical Exam Physical Exam: Physical Exam: Vitals signs as noted above General Appearance: Ill-appearing, elderly, thin Head: normocephalic, Atraumatic Eyes: normal inspection, EOMI Neck: supple, Trachea midline Respiratory/Chest: Normal breath sounds, CTA, No accessory muscle use Cardiovascular: S1, S2, No murmur Abdomen/GI:Soft, mild tender, Bowel sounds present Extremities/Musculoskeletal:normal inspection, no edema Neurologic/Psych:AAOX2, grossly no focal neurological deficits Skin: normal color, warm Results & Data Results & Data ([facility]) Vital Signs (Past 12 Hours) Vital Signs Temp Pulse Pulse Resp BP BP BP 07/08/22 13:10 37.4 C 80 20 168/83 H 07/08/22 12:00 36.7 C 77 20 152/76 H 07/08/22 08:57 155 H 164/97 H 07/08/22 08:00 36.8 C 79 18 169/87 H 07/08/22 03:31 36.8 C 96 H 18 172/92 H Pulse Ox O2 Del Method 07/08/22 13:10 91 Room Air 07/08/22 12:00 99 07/08/22 08:57 07/08/22 08:00 97 07/08/22 03:31 91 Room Air Laboratory Results Short CBC 07/08/22 07/08/22 Range/Units 05:25 13:09 WBC 18.90 H 18.14 H (4.8-10.8) K/ul Hgb 8.3 L 8.0 L (14.0-18.0) g/dl Hct 23.7 L 22.9 L (40.1-51.0) % Plt Count 261 247 (130-400) K/uL [facility] 07/08/22 05:25 Sodium 140 Potassium 3.6 Chloride 106 Carbon Dioxide 29 BUN 18 Creatinine 0.73 Glucose 136 H Calcium 7.8 L Liver Function 07/08/22 Range/Units 05:25 Total Bilirubin 6.3 H (0.2-1.0) mg/dl AST 321 H (13-39) U/L ALT 174 H (7-52) U/L Alkaline Phosphatase 426 H (34-104) U/L Albumin 2.6 L (3.4-5.0) gm/dl (1) Sepsis Sepsis acute organ dysfunction status: unspecified Sepsis type: sepsis due to unspecified organism Qualified Code(s): A41.9 - Sepsis, unspecified organism
--- NOTE | 2022-07-08 16:33 | Post Operative Brief Note ---
Immediate Post Op Note v1 Date of Surgery July 08, 2022 Pre & Post Diagnosis Operation Date: 07/07/22 16:30 Pre-Op Diagnosis: GI Bleed Operation Date: 07/08/22 10:55 EGD and ERCP with stent placement I identified the patient and participated in the time-out.: Yes Procedure Operation Date: 07/08/22 10:55 EGD with ERCP and new stent placement Surgeon Noe Hadley, DO Stacker none Estimated Blood Loss 0 Findings Consistent with Post-Op Diagnosis
--- NOTE | 2022-07-08 16:38 | Communication Note ---
Date of Service: July 08, 2022 The patient underwent upper endoscopy and ERCP today. He was found to have allergic blood and clot within the stomach duodenum. It appeared that he was having bleeding from his post sphincterotomy site. After a large amount of blood and clot was removed the duodenal wall was injected around the site of the sphincterotomy with epinephrine. This resulted in cessation of bleeding. The biliary tree was then cannulated and a covered metal stent was placed into the bile duct to tamponade the sphincterotomy site. Recommendations N.p.o. Avoid anticoagulation and nonsteroidal medications for at least 72 hours If rebleeding occurs patient will need urgent transfer to a center with interventional radiology support Continue broad-spectrum antibiotic coverage
--- NOTE | 2022-07-08 16:54 | Fluoroscopy Report ---
INTRAOPERATIVE RADIOGRAPHS CLINICAL HISTORY: ERCP. Duct exploration. Fluoroscopy time: 164 seconds. FINDINGS: 3 spot fluoroscopic views of the right upper quadrant from an ERCP procedure are presented. Cholecystectomy clips are noted. The initial image shows the endoscope projecting over the stomach. 2 common bile duct stents are in place and a wire has been placed into the duct. The common bile carmelo t is dilated and contains intraluminal debris. A new stent is placed within the common bile duct on t he final image. IMPRESSION: Intraoperative ERCP images as above. See operative report for detailed findings. Electronically signed by: Xavier Olivarez M.D. 07/08/2022 4:53 PM
--- NOTE | 2022-07-08 16:55 | GI REPORT ---
Patient Name: Allen Salazar Procedure Date: 07/08/2022 2:33 PM Date of : 1930 Admit Type: Inpatient Age: 89 Gender: Male Attending MD: Noe Hadley DO Procedure: ERCP Providers: Noe Hadley DO Referring MD: Javid Farr Md, Matt Miguel Piljean pierre Indications: Suspected ascending cholangitis, Suspected post-sphincterotomy bleeding, Post endoscopic sphincterotomy liver function test abnormalities Medicines: General Anesthesia Complications: No immediate complications. Estimated blood loss: Minimal. Estimated Blood Loss: Estimated blood loss was minimal. Procedure: Pre-Anesthesia Assessment: - Prior to the procedure, a History and Physical was performed, and patient medications, allergies and sensitivities were reviewed. The patient's tolerance of previous anesthesia was reviewed. - The risks and benefits of the procedure and the sedation options and risks were discussed with the patient. All questions were answered and informed consent was obtained. - Patient identification and proposed procedure were verified prior to the procedure by the physician, the nurse and the child care team lead. The procedure was verified in the procedure room. - Pre-procedure physical examination revealed no contraindications to sedation. - ASA Grade Assessment: IV - A patient with severe systemic disease that is a constant threat to life. - After reviewing the risks and benefits, the patient was deemed in satisfactory condition to undergo the procedure. - The anesthesia plan was to use general anesthesia. - Immediately prior to administration of medications, the patient was re-assessed for adequacy to receive sedatives. - The heart rate, respiratory rate, oxygen saturations, blood pressure, adequacy of pulmonary ventilation, and response to care were monitored throughout the procedure. - The physical status of the patient was re-assessed after the procedure. After obtaining informed consent, the scope was passed under direct vision. Throughout the procedure, the patient's blood pressure, pulse, and oxygen saturations were monitored continuously. The Duodenoscope was introduced through the mouth, and advanced to the duodenum and used to inject contrast into the bile duct. The ERCP was technically difficult and complex. Successful completion of the procedure was aided by performing the maneuvers documented (below) in this report. The patient tolerated the procedure well. The scope was introduced through the mouth, and advanced to the duodenum and used to inject contrast into the bile duct. Findings: A cooler man film of the abdomen was obtained. Surgical clips, consistent with a previous cholecystectomy, were seen in the area of the right upper quadrant of the abdomen. A standard esophagogastroduodenoscopy scope was used for the examination of the upper gastrointestinal tract. The scope was passed under direct vision through the upper GI tract. The examined esophagus was normal. Clotted blood was found in the gastric fundus. Clotted blood was found in the duodenal bulb, in the second portion of the duodenum and in the third portion of the duodenum. A large-mouthed diverticulum was found in the area of the papilla. Two previously placed biliary stents were seen in the area of the papilla. Area was successfully injected with 4 mL of a 1:10,000 solution of epinephrine through the esophagogastroduodenoscope for hemostasis. Lavage and removal of a large amount of clotted blood of the area was performed through the esophagogastroduodenoscope using copious amounts of sterile water, numerous Luna Nets and several Snares, resulting in incomplete clearance with fair visualization. After the location of the ampulla was identified, the bile duct was deeply cannulated with the short-nosed traction sphincterotome and guidewire. Contrast was injected. I personally interpreted the bile duct images. Contrast extended to the bifurcation. The main bile duct was diffusely dilated. The largest diameter was 10 mm. The main bile duct contained filling defect(s). To discover objects, the biliary tree was swept with a 15 mm balloon starting at the bifurcation. Clots were swept from the duct. One 10 Fr by 8 cm covered metal stent ([place] [employer], [id number], Lot [id number]) was placed 8 cm into the common bile duct to tamponade the sphinterotomy site. Bile, pus and sludge flowed through the stent. The stent was in good position. One of the plastic stents was then removed from the biliary tree using a Raptor grasping device. No fresh bleeding could be seen from the sphincterotomy site . the endoscope was withdrawn from the patient. Impression: - Normal esophagus. - Clotted blood in the gastric fundus. - Blood in the duodenal bulb, in the second portion of the duodenum and in the third portion of the duodenum. - Duodenal diverticulum. - Lavage and clot removal resulting in incomplete clearance with fair visualization. - The biliary tree was swept and clots were found. - One covered metal stent was placed into the common bile duct to tamponade the sphincterotomy site. - One stent was removed from the biliary tree. Recommendation: - Avoid aspirin and nonsteroidal anti-inflammatory medicines for 1 week. - NPO today. - Use broad spectrum antibiotics for 2 weeks. - Use Protonix (pantoprazole) 40 mg PO BID for 1 week. - If rebleeding occurs would refer to a center with IR support. - Repeat ERCP in 6 weeks to remove stent. Noe Hadley D.O. Noe Hadley, 07/08/2022 4:55:19 PM This report has been signed electronically. Note Initiated On: 07/08/2022 2:33 PM Number of Addenda: 0 I attest to the content of the Intraoperative Record and orders documented therein, exceptions below {[id number]}
[2022-07-08] MEDS: CEROVITE ADV FORMULA TAB PO SCH (18:16)
[2022-07-08] MEDS: PSYLLIUM or GUAR GUM FIBER POWDER PACKET PO SCH (18:16)
[2022-07-08] MEDS: DOCUSATE SODIUM 100 MG CAP PO SCH (18:16)
[2022-07-08] MEDS: METOPROLOL TARTRATE 1 MG/ML VIAL IV SCH ×3 (18:23→23:41)
[2022-07-08] MEDS: SERTRALINE HCL 50 MG TABLET PO SCH (18:24)
[2022-07-08] MEDS: amLODIPine BESYLATE 5 MG TAB PO SCH (18:37)
--- NOTE | 2022-07-08 19:29 | Anesthesiology Progress Note ---
Date of Service July 08, 2022 Anesthesia Post Procedure Vital Signs Vital Signs: Temp Pulse Pulse Pulse Resp BP BP 07/08/22 18:59 36.8 C 66 18 107/63 07/08/22 08:00 86 07/08/22 16:00 88 07/08/22 18:30 36.7 C 69 18 107/63 07/08/22 18:00 36.7 C 78 18 114/68 07/08/22 15:00 36.8 C 87 20 121/66 07/08/22 17:45 36.4 C L 87 24 125/93 07/08/22 17:35 109 H 24 139/63 07/08/22 17:25 116 H 24 07/08/22 17:15 105 H 22 168/95 H 07/08/22 17:05 110 H 19 131/86 07/08/22 16:55 36.2 C L 103 H 80 20 151/56 H 07/08/22 13:10 37.4 C 80 20 07/08/22 12:00 36.7 C 77 20 152/76 H 07/08/22 08:57 155 H 164/97 H 07/08/22 08:00 36.8 C 79 18 169/87 H 07/08/22 03:31 36.8 C 96 H 18 07/07/22 23:55 36.6 C 91 H 18 07/07/22 23:54 81 07/07/22 19:38 36.9 C 86 20 BP Pulse Ox O2 Del Method O2 Flow Rate 07/08/22 18:59 97 07/08/22 08:00 07/08/22 16:00 07/08/22 18:30 99 Nasal Cannula 3 07/08/22 18:00 96 Nasal Cannula 3 07/08/22 15:00 97 07/08/22 17:45 96 Oxymask 3 07/08/22 17:35 94 Oxymask 4 07/08/22 17:25 94 Oxymask 4 07/08/22 17:15 96 Oxymask 6 07/08/22 17:05 98 Oxymask 6 07/08/22 16:55 95 Oxymask 6 07/08/22 13:10 168/83 H 91 Room Air 07/08/22 12:00 99 07/08/22 08:57 07/08/22 08:00 97 07/08/22 03:31 172/92 H 91 Room Air 07/07/22 23:55 169/97 H 91 Room Air 07/07/22 23:54 07/07/22 19:38 135/83 92 Room Air Pain Intensity Abdomen: Pain Intensity: 3 Transfer of Care Handoff Completed per policy Notes Mental Status: alert / awake / arousable Patient Amnestic to Procedure: Yes Nausea / Vomiting: adequately controlled Pain: adequately controlled Airway Patency, RR, SpO2: stable & adequate BP & HR: stable & adequate Hydration State: stable & adequate Anesthetic Complications: no major complications apparent Notes: patient was disoriented in pacu but apparently nearly at baseline mental status.
[2022-07-09] MEDS: PANTOprazole 40 MG in DEXTROSE 5% 100 ML IV SCH ×5 (01:37→20:52)
[2022-07-09] MEDS: LACTATED RINGER'S 1,000 ML IV SCH ×2 (03:26→19:44)
[2022-07-09] MEDS: PIPERACILLIN/TAZOBACTAM 3.375 GM in DEXTROSE 5% 100 ML IV SCH ×3 (03:27→19:44)
[2022-07-09] MEDS: METOPROLOL TARTRATE 1 MG/ML VIAL IV SCH ×4 (06:02→23:20)
[2022-07-09] MEDS: LEVOTHYROXINE SODIUM 50 MCG TABLET PO SCH (06:02)
[2022-07-09 06:28] LABS: Hematocrit (blood only) 18.9 % (40.1-51.0); Hemoglobin 6.6 g/dl (14.0-18.0); Mean Corpuscular Hgb Conc 34.9 g/dL (32.0-36.0); Mean Corpuscular Volume 97.4 fL (80.0-100.0); Mean Platelet Volume 9.8 fL (9.4-12.4); Nucleated RBC # (auto) 0.02 K/uL (0-0); Nucleated RBC % (auto) 0.2 %; Platelet Count 219 K/uL (130-400); RDW Coefficient of Variation 14.5 % (11.5-14.5); RDW Standard Deviation 50.7 fL (36.4-46.3); Red Blood Count 1.94 M/uL (4.63-6.08); White Blood Count 11.83 K/ul (4.8-10.8)
[2022-07-09] MEDS ORDERED: SODIUM CHLORIDE 0.9% 250 ML IV PRN ×2 (06:38→13:54)
--- NOTE | 2022-07-09 06:39 | Communication Note ---
Date of Service: July 09, 2022 Made aware by RN of a.m. hemoglobin of 6.6 (8 from yesterday) No overt bleeding as per RN. Transfuse PRBC to maintain hemoglobin above 7 Tertiary care transfer if with recurrent GI bleed as per GI recommendation.
[2022-07-09 07:12] LABS: Albumin Globulin Ratio 1.1 (0.9-2); Albumin Level 2.2 gm/dl (3.4-5.0); Bilirubin,Total 2.4 mg/dl (0.2-1.0); Calcium 7.3 mg/dl (8.5-10.1); Creatinine Clr Calc Pharmacy 56.1 ml/min; Est GFR (African American) 90.9 ml/min; Est GFR (Non-African American) 78.4 ml/min; Potassium 3.8 mmol/L (3.5-5.1); Total Protein 4.2 gm/dl (6.0-8.3)
--- NOTE | 2022-07-09 08:16 | Surgery Progress Note ---
Date of Service July 09, 2022 Assessment & Plan Admission and Anticipated Discharge Date Admission Date: July 05, 2022 Subjective Patient resting comfortably without any complaints Results & Data ([facility]) Vital Signs (Past 12 Hours) Vital Signs Temp Pulse Pulse Resp BP BP Pulse Ox 07/09/22 08:06 36.5 C 56 L 22 105/62 98 07/09/22 07:26 36.8 C 55 L 16 115/66 95 07/09/22 06:47 62 07/09/22 06:23 07/09/22 06:02 57 L 120/71 07/09/22 06:01 57 L 120/71 07/09/22 03:34 36.7 C 62 18 113/70 95 07/08/22 23:41 79 115/68 07/08/22 23:15 36.8 C 79 18 115/68 92 07/08/22 22:44 94 H 07/08/22 22:15 36.8 C 79 18 124/65 93 07/08/22 21:05 36.8 C 75 18 123/67 95 O2 Del Method O2 Flow Rate 07/09/22 08:06 2 07/09/22 07:26 Nasal Cannula 2 07/09/22 06:47 07/09/22 06:23 Nasal Cannula 2 07/09/22 06:02 07/09/22 06:01 07/09/22 03:34 Nasal Cannula 2 07/08/22 23:41 07/08/22 23:15 Nasal Cannula 2 07/08/22 22:44 07/08/22 22:15 Nasal Cannula 2 07/08/22 21:05 Nasal Cannula 2 PG Care Time/CCT Total # of Minutes Spent Total Time Spent with Patient: Total time spent is greater than 50% in coordination of care (as documented) at patient's floor/unit and/or counseling patient: Coding
[2022-07-09] MEDS: amLODIPine BESYLATE 5 MG TAB PO SCH (10:57)
[2022-07-09] MEDS: CEROVITE ADV FORMULA TAB PO SCH (10:57)
--- NOTE | 2022-07-09 11:03 | Gastroenterology Progress Note ---
Date of Service July 09, 2022 Assessment & Plan (1) Choledocholithiasis: (2) Acute pancreatitis: (3) Acute cholangitis: (4) Acute upper GI bleed: Plan: Continue Protonix gtt at present, will need Protonix 40 mg BID on discharge Continue broad spectrum Abx for 2 weeks Advance diet to clear liquids now If he would have recurrent bleeding, he will need transferred to tertiary center with IR capabilities Will need repeat ERCP in 6 weeks for stent removal Admission and Anticipated Discharge Date Admission Date: July 05, 2022 Subjective and family at bedside: Hemoglobin decreased overnight, but no overt GI bleeding noted. He describes mild epigastric pain, 3/10 in intensity, non-radiating. He denies any nausea, vomiting, hematemesis, melena or hematochezia. He states he feels slightly improved from yesterday. He denies any further complaints. Review of Systems Review of Systems: All systems reviewed & are unremarkable except as noted in HPI & below Physical Exam Constitutional: WD/WN, vitals as above Respiratory: normal respiratory effort, lungs clear to auscultation Cardiovascular: RRR, no murmur, no edema Gastrointestinal (Abdomen): Inspection/Auscultation: normal bowel sounds; abdomen not distended Percussion/Palpation: + abdomen tender (Epigastric) and abdomen soft; no guarding and abdomen not rigid Skin: + pallor Psychiatric: A+Ox3, euthymic affect Results & Data Results & Data ([facility]) Vital Signs (Past 12 Hours) Vital Signs Temp Pulse Pulse Resp BP BP Pulse Ox 07/09/22 10:34 36.9 C 60 22 123/75 96 07/09/22 09:34 36.8 C 61 22 128/70 96 07/09/22 08:50 36.6 C 60 22 128/70 97 07/09/22 08:33 36.5 C 59 L 22 130/80 97 07/09/22 08:06 36.5 C 56 L 22 105/62 98 07/09/22 07:26 36.8 C 55 L 16 115/66 95 07/09/22 06:47 62 07/09/22 06:23 07/09/22 06:02 57 L 120/71 07/09/22 06:01 57 L 120/71 07/09/22 03:34 36.7 C 62 18 113/70 95 07/08/22 23:41 79 115/68 07/08/22 23:15 36.8 C 79 18 115/68 92 O2 Del Method O2 Flow Rate 07/09/22 10:34 2 07/09/22 09:34 2 07/09/22 08:50 2 07/09/22 08:33 2 07/09/22 08:06 2 07/09/22 07:26 Nasal Cannula 2 07/09/22 06:47 07/09/22 06:23 Nasal Cannula 2 07/09/22 06:02 07/09/22 06:01 07/09/22 03:34 Nasal Cannula 2 07/08/22 23:41 07/08/22 23:15 Nasal Cannula 2 PG Care Time/CCT Total # of Minutes Spent Total Time Spent with Patient: Total time spent is greater than 50% in coordination of care (as documented) at patient's floor/unit and/or counseling patient: Coding Level of Care Code 44941 Subseq Hosp Care Lvl 3 Diagnoses Choledocholithiasis K80.50 Acute pancreatitis K85.90 Acute cholangitis K83.09 Acute upper GI bleed K92.2
[2022-07-09] MEDS: PSYLLIUM or GUAR GUM FIBER POWDER PACKET PO SCH (11:06)
[2022-07-09] MEDS: SERTRALINE HCL 50 MG TABLET PO SCH (11:49)
[2022-07-09] MEDS: DOCUSATE SODIUM 100 MG CAP PO SCH (11:50)
--- NOTE | 2022-07-09 13:44 | Hospitalist Progress Note ---
Date of Service July 09, 2022 Assessment & Plan (1) Sepsis: Plan: Secondary to gallstone pancreatitis and ascending cholangitis Continue antibiotics>>Zosyn Blood cultures: Negative to date Persistent leukocytosis (2) Acute pancreatitis: Plan: Gallstone pancreatitis Also likely developed post ERCP pancreatitis Received IV fluids NPO for now due to GI bleed/EGD and ERCP Acute GI Bleeding Likely from sphincterotomy site Acute blood loss anemia --CT ABD:The duodenum is distended and filled with hyperdense material suggestive of blood products/hemorrhage. There is also mild thickening of the duodenal wall with periduodenal fat stranding. Therefore, this could represent an acute pancreatitis versus a nonspecific duodenitis. Underlying duodenal ischemia is not excluded. The stomach is also mildly distended and filled with a moderate amount of hyperdense material suggestive of blood products/hemorrhage. Interval placement of 2 common bile duct stents which appear in good position. However, the hepatic duct proximal to the common bile duct stents remains distended and filled with hyperdense material. This could represent residual stones or blood. There is persistent intrahepatic bile duct dilatation. Interval development of peripheral gas within the liver. Given the recent intervention this most likely represents pneumobilia. However, the peripheral distribution raises the possibility of portal venous gas. -S/P EGD: Normal esophagus. Clotted blood in the gastric fundus. Blood in the duodenum, second portion of the duodenum and third portion of duodenum. Duode nal diverticulum. Large clot removal resulting in incomplete clearance with fair visualization. The biliary tree was swept and clots performed. 1 covered metal stent was placed into the common bile duct to tamponade the sphincterotomy site. Stent was removed from the biliary tree. --Aspirin held -- N.p.o. for now Appreciate GI input Continue PPI ggt Monitor H&H S/P 1 unit PRBCs Transfuse PRBCs as needed Continue broad-spectrum antibiotics for 2 weeks Needs repeat ERCP in 6 weeks for stent removal Needs transfer to tertiary care facility for IR intervention as has recurrence of bleeding Plan to transfer to tertiary care facility if accepted. (3) Choledocholithiasis: Plan: Plan as above. (4) Acute cholangitis: Plan: S/P ERCP performed 07/05/2022 - choledocholithiasis found, removed via balloon extraction, biliary sphincterectomy, pus swept, 2 biliary stents placed S/P Repeat ERCP on 07/08/22: Likely source of bleeding is from sphincterotomy site. Duodenal wall was injected around the site of the sphincterotomy with epinephrine. Biliary tree was then cannulated and a covered metal stent was placed into the bile duct to tamponade the sphincterotomy site. Monitor LFTs Blood cultures negative so far Advance diet as tolerated Appreciate GI input Avoid aspirin, NSAIDs for 5 days Continue Zosyn for now. Need to complete 2 week course of antibiotics Needs repeat ERCP in 6 weeks for biliary stent removal Needs follow-up with GI as outpatient Given recurrence of bleeding, will need IR intervention as recommended by GI Plan to transfer to tertiary care facility if accepted. (5) Hypertension: Plan: Hold Lisinopril due to TERRENCE Started on amlodipine Monitor BP Atrial fibrillation with RVR ECHO: Left ventricle wall motion is normal. Left ventricle systolic function is normal. EF 60 to 65%. Mild aortic regurgitation. Grade 1 diastolic dysfunction Converted to sinus spontaneously Received IV Lopressor Monitor on telemetry TSH:5.2 No anticoagulation given GI bleed Appreciate Cardiology Input IV Lopressor 2.5 mg Q6H while NPO (6) CKD (chronic kidney disease), stage III: Plan: TERRENCE on CKD III Cr: 1.4>0.92> 0.8 Hold lisinopril Avoid nephrotoxic agents as able Continue gentle IV fluids Monitor renal function (7) JUAN MANUEL (generalized anxiety disorder): Plan: Continue sertraline (8) Hypothyroidism: Plan: Continue levothyroxine (9) DVT prophylaxis: Plan: Lovenox SQ--Held due to GI bleed Code Status Full code Disposition To be determined Admission and Anticipated Discharge Date Admission Date: July 05, 2022 Subjective Patient is seen and examined at bedside Reports abdominal is much improved this morning per patient Had recurrence of hematemesis and some rectal bleeding today Discussed with GI today Got 1 unit PRBCs this morning Discussed with patient's family at bedside Denies chest pain, dyspnea, dizziness Plan to discharge to Tertiary care facility for IR intervention if accepted Review of Systems Review of Systems: All systems reviewed & are unremarkable except as noted in Subjective Physical Exam Physical Exam: Physical Exam: Vitals signs as noted above General Appearance: Ill-appearing, elderly, thin Head: normocephalic, Atraumatic Eyes: normal inspection, EOMI Neck: supple, Trachea midline Respiratory/Chest: Normal breath sounds, CTA, No accessory muscle use Cardiovascular: S1, S2, No murmur Abdomen/GI:Soft, non tender, Bowel sounds present Extremities/Musculoskeletal:normal inspection, no edema Neurologic/Psych:AAOX2, grossly no focal neurological deficits Skin: normal color, warm Results & Data Results & Data ([facility]) Vital Signs (Past 12 Hours) Vital Signs Temp Pulse Pulse Resp BP BP Pulse Ox 07/09/22 12:10 62 139/73 07/09/22 11:18 37.1 C 59 L 22 122/66 95 07/09/22 10:34 36.9 C 60 22 123/75 96 07/09/22 09:34 36.8 C 61 22 128/70 96 07/09/22 08:50 36.6 C 60 22 128/70 97 07/09/22 08:33 36.5 C 59 L 22 130/80 97 07/09/22 08:06 36.5 C 56 L 22 105/62 98 07/09/22 07:26 36.8 C 55 L 16 115/66 95 07/09/22 06:47 62 07/09/22 06:23 07/09/22 06:02 57 L 120/71 07/09/22 06:01 57 L 120/71 07/09/22 03:34 36.7 C 62 18 113/70 95 O2 Del Method O2 Flow Rate 07/09/22 12:10 07/09/22 11:18 2 07/09/22 10:34 2 07/09/22 09:34 2 07/09/22 08:50 2 07/09/22 08:33 2 07/09/22 08:06 2 07/09/22 07:26 Nasal Cannula 2 07/09/22 06:47 07/09/22 06:23 Nasal Cannula 2 07/09/22 06:02 07/09/22 06:01 07/09/22 03:34 Nasal Cannula 2 Laboratory Results Short CBC 07/09/22 Range/Units 05:23 WBC 11.83 H (4.8-10.8) K/ul Hgb 6.6 L* (14.0-18.0) g/dl Hct 18.9 L* (40.1-51.0) % Plt Count 219 (130-400) K/uL BMP 07/09/22 05:23 Sodium 139 Potassium 3.8 Chloride 106 Carbon Dioxide 31 BUN 23 Creatinine 0.82 Glucose 144 H Calcium 7.3 L Liver Function 07/09/22 Range/Units 05:23 Total Bilirubin 2.4 H D (0.2-1.0) mg/dl AST 148 H (13-39) U/L ALT 125 H (7-52) U/L Alkaline Phosphatase 429 H (34-104) U/L Albumin 2.2 L (3.4-5.0) gm/dl (1) Sepsis Sepsis type: sepsis due to unspecified organism Sepsis acute organ dysfunction status: unspecified Qualified Code(s): A41.9 - Sepsis, unspecified organism
[2022-07-09] MEDS: PROMETHAZINE HCL 12.5 MG in SODIUM CHLORIDE 0.9% 50 ML IV PRN (14:03)
--- NOTE | 2022-07-09 14:53 | Discharge Summary ---
Date of Service July 09, 2022 Admission HPI Per Admitting Provider CHIEF COMPLAINT: Abdominal pain. HISTORY OF PRESENT ILLNESS: An 89-year-old male with past medical history significant for hypothyroidism, hypertension, chronic kidney disease stage III, GERD, bilateral senile cataracts, generalized anxiety disorder, who lives with his , ambulates without support comes with abdominal pain. He says this is going on for last 1 month. Sometimes the pain is bad, associated with nausea and vomiting, which prompted him to come to the ER today. The pain is in the lower chest, epigastric region but there is no chest pain, no shortness of breath. He has occasional cough. No headache, no blurred visions, no runny nose, no sore throat, no fevers, no difficulty swallowing as per the patient. Normal bowel and bladder movements. Currently, resting comfortably. He had a temperature spike in the ER. His white count was 12.8. LFTs were elevated, lipase was 3094. Procalcitonin 1.9. CT of abdomen and pelvis with IV contrast showed pancreatitis and also hypodense material filling the common bile duct, which could represent blood clot versus choledocholithiasis, moderate intrahepatic biliary ductal dilation, which is increased from October 2019, also mild inflammation seen around the nahed hepatis. ER called GI on-call who advised to antibiotics, fluids and possible plan for ERCP in the a.m. No further imaging studies recommended.Patient speaks slowly. Admission Exam Per Admitting Provider PHYSICAL EXAMINATION: GENERAL: The patient is old and frail, not in acute distress, somewhat slow to answer. VITAL SIGNS: Temperature 38.2, pulse 87, respiratory rate 27, blood pressure 128/69, oxygen 94% on room air. HEENT: Pupils equal, round and reactive to light. Oral mucosa somewhat dry. NECK: No JVD, no neck masses. CARDIOVASCULAR: S1 and S2 heard. Regular rate and rhythm. No murmur, no gallop. RESPIRATORY SYSTEM: Normal AP diameter. No accessory muscle use. No wheezing, no crackles. ABDOMEN: Soft, bowel sounds present. Mild abdominal discomfort. No guarding. No rigidity. No distention. CENTRAL NERVOUS SYSTEM: Alert and oriented. Some slow to answer. Insight is o [place]. Answers questions appropriately. Moves extremities. No facial droop seen. EXTREMITIES: Trace pedal edema, no erythema seen. Principal Diagnosis Sepsis Acute pancreatitis Acute GI Bleeding Atrial fibrillation with RVR TERRENCE Discharge Data Allergies Allergy/AdvReac Type Severity Reaction Status Date / Time No Known Allergies Allergy Verified 07/07/22 10:33 Consultations 07/04/22 22:27 ED Decision to Admit Stat 07/05/22 08:00 Consult Gastroenterology Routine 07/05/22 17:42 Consult General Surgery Routine 07/07/22 14:07 Consult Cardiology Routine Procedures Performed Operation Date: 07/05/22 08:20 Actual Procedures p Endoscopic Retrograde Cholangiopancreatogram - Noe Hadley, Operation Date: 07/07/22 16:30 Actual Procedures p Esophagogastroduodenoscopy(Not Applicable) - Noe Hadley, DO Operation Date: 07/08/22 10:55 Actual Procedures p Endoscopic Retrograde Cholangiopancreato - Noe Hadley, DO Laboratory Results WBC 11.83 K/ul (4.8-10.8) H 07/09/22 05:23 RBC 1.94 M/uL (4.63-6.08) L 07/09/22 05:23 Hgb 6.6 g/dl (14.0-18.0) L* 07/09/22 05:23 Hct 18.9 % (40.1-51.0) L* 07/09/22 05:23 MCV 97.4 fL (80.0-100.0) 07/09/22 05:23 MCH 34.0 pg (25.0-34.0) 07/09/22 05:23 MCHC 34.9 g/dL (32.0-36.0) 07/09/22 05:23 RDW Std Deviation 50.7 fL (36.4-46.3) H 07/09/22 05:23 RDW Coeff of Lorin 14.5 % (11.5-14.5) 07/09/22 05:23 Plt Count 219 K/uL (130-400) 07/09/22 05:23 MPV 9.8 fL (9.4-12.4) 07/09/22 05:23 Immature Gran % (Auto) 1.0 % 07/07/22 01:17 Neut % (Auto) 89.2 % 07/07/22 01:17 Lymph % (Auto) 4.7 % 07/07/22 01:17 [place] % (Auto) 4.7 % 07/07/22 01:17 Eos % (Auto) 0.2 % 07/07/22 01:17 Baso % (Auto) 0.2 % 07/07/22 01:17 Neut # (Auto) 16.71 K/uL (1.4-6.5) H 07/07/22 01:17 Lymph # (Auto) 0.88 K/uL (1.2-3.4) L 07/07/22 01:17 [place] # (Auto) 0.88 K/uL (0.24-0.82) H 07/07/22 01:17 Eos # (Auto) 0.03 K/uL (0-0.50) 07/07/22 01:17 Baso # (Auto) 0.04 K/uL (0-0.2) 07/07/22 01:17 Immature Gran # (Auto) 0.19 K/uL (0.00-0.02) H 07/07/22 01:17 Absolute Nucleated RBC 0.02 K/uL (0-0) H 07/09/22 05:23 Nucleated RBC % (auto) 0.2 % 07/09/22 05:23 PT 11.1 Seconds (9.0-12.0) 07/04/22 18:13 INR 1.0 (0.9-1.1) 07/04/22 18:13 Sodium 139 mmol/L (136-145) 07/09/22 05:23 Potassium 3.8 mmol/L (3.5-5.1) 07/09/22 05:23 Chloride 106 mmol/L (98-107) 07/09/22 05:23 Carbon Dioxide 31 mmol/L (21-32) 07/09/22 05:23 Anion Gap 2 (3-11) L 07/09/22 05:23 BUN 23 mg/dl (6-23) 07/09/22 05:23 Creatinine 0.82 mg/dl (0.6-1.4) 07/09/22 05:23 Est Cr Clr Drug Dosing 56.1 ml/min 07/09/22 05:23 Est GFR ( Amer) 90.9 ml/min 07/09/22 05:23 Est GFR (Non-Af Amer) 78.4 ml/min 07/09/22 05:23 BUN/Creatinine Ratio 28.0 (10-20) H 07/09/22 05:23 Glucose 144 mg/dl (70-99(Fasting)) H 07/09/22 05:23 POC Glucose 111 mg/dl (70-99) H 07/06/22 11:19 Lactate 1.4 mmol/L (0.4-2.0) 07/07/22 03:57 Calcium 7.3 mg/dl (8.5-10.1) L 07/09/22 05:23 Magnesium 1.8 mg/dl (1.7-2.4) 07/08/22 05:25 Total Bilirubin 2.4 mg/dl (0.2-1.0) H D 07/09/22 05:23 Direct Bilirubin 2.4 mg/dl (0-0.2) H 07/06/22 06:24 AST 148 U/L (13-39) H 07/09/22 05:23 ALT 125 U/L (7-52) H 07/09/22 05:23 Alkaline Phosphatase 429 U/L (34-104) H 07/09/22 05:23 Troponin I High Sens 19.9 pg/ml (0-20) 07/04/22 18:13 Total Protein 4.2 gm/dl (6.0-8.3) L 07/09/22 05:23 Albumin 2.2 gm/dl (3.4-5.0) L 07/09/22 05:23 Globulin 2.0 gm/dl (2.5-4.0) L 07/09/22 05:23 Albumin/Globulin Ratio 1.1 (0.9-2) 07/09/22 05:23 Lipase 9 U/L (11-82) L 07/09/22 05:23 Procalcitonin 4.95 ng/ml (0-0.5) H 07/09/22 05:23 TSH 5.241 uIu/ml (0.300-4.500) H 07/08/22 05:25 Free T4 0.74 ng/dl (0.61-1.60) 07/08/22 05:25 Lyme Disease IgG Ab Negative (Negative) 07/04/22 18:13 Lyme Disease IgM Ab Negative (Negative) 07/04/22 18:13 SARS-CoV-2 (PCR) NEGATIVE (Negative) 07/04/22 18:22 Influenza Type A (PCR) Negative (Neg) 07/04/22 18:22 Influenza Type B (PCR) Negative (Neg) 07/04/22 18:22 RSV (RT-PCR) Negative (Neg) 07/04/22 18:22 Blood Type O Positive 07/07/22 01:17 Blood Type Recheck O Positive 07/08/22 05:25 Antibody Screen NEGATIVE 07/07/22 01:17 Crossmatch See Detail 07/07/22 01:17 Impressions Chest X-Ray 07/04/22 17:36 SINGLE VIEW CHEST CLINICAL HISTORY: Fever FINDINGS: An AP, portable, upright chest radiograph is compared to study dated 11/11/2019. The heart is enlarged noting atherosclerotic calcification of the thoracic aorta. The pulmonary vasculature is noncongested. Chronic interstitial thickening is similar to previous. There is elevation of the right hemidiaphragm with bibasilar scarring/atelectasis. The lungs and pleural spaces are otherwise clear. No pneumothorax is seen. The skeletal structures are osteopenic. The bony thorax is grossly intact. Cholecystectomy clips are seen in the right upper quadrant. IMPRESSION: Cardiomegaly with no acute cardiopulmonary abnormality. ACT 112: Negative or not required by law. Electronically signed by: Xaveir Olivarez M.D. 07/04/2022 7:24 PM Abdomen/Pelvis CT 07/07/22 01:[address] WITHOUT CONTRAST CT DOSE: 283.41 mGy.cm HISTORY: Worsening generalized abdominal pain. Upper GI bleed. TECHNIQUE: Multiaxial CT images of the abdomen and pelvis were performed without contrast. A dose lowering technique was utilized adhering to the principles of ALARA. COMPARISON STUDY: Abdomen and pelvis CT 07/04/2022. FINDINGS: Interval development of small bilateral pleural effusions and patchy bibasilar densities. This favors atelectasis. However, there are few small nodular groundglass densities within the basal left lower lobe which could represent an aspiration pneumonitis. No pneumoperitoneum. No pneumatosis. No suspicious lytic are blastic osseous lesions. Interval placement of 2 common bile duct stents which terminate in the duodenum. The proximal portions of the common bile duct stents terminate at the mid hepatic duct. Proximal to the common bile duct stents the common hepatic duct remains distended with hyperdense material. There is persistent intrahepatic bile duct dilatation. Peripheral foci of gas within the liver which are new from the prior study. Given the recent intervention this most likely represents pneumobilia. However, the peripheral distribution of the gas raises the possibility of portal venous gas. No mesenteric venous gas identified. Distended and fluid-filled stomach containing a moderate amount of hyperdense debris suggestive of blood products. The second and third portion of the duodenum are also distended and filled with hyperdense material suggestive of hemorrhage. There is distention of the large duodenal diverticula at the second portion of the duodenum. There is mild bowel wall thickening of the second and third portion of the duodenum with periduodenal fat stranding. This could represent a duodenitis or possibly developing ischemia. An acute pancreatitis could also a similar appearance. Gas within the duodenum appears to be intraluminal. No definite evidence for pneumatosis. Prior cholecystectomy. Partially calcified large right renal cyst remains unchanged. Normal left kidney and adrenal glands. The unenhanced spleen is unremarkable. No retroperitoneal hematoma or lymphadenopathy. Normal caliber abdominal aorta. Trace pelvic free fluid. The bladder is unremarkable. The prostate gland remains mildly enlarged. No evidence for bowel obstruction. IMPRESSION: 1. The duodenum is distended and filled with hyperdense material suggestive of blood products/hemorrhage. There is also mild thickening of the duodenal wall with periduodenal fat stranding. Therefore, this could represent an acute pancreatitis versus a nonspecific duodenitis. Underlying duodenal ischemia is not excluded. 2. The stomach is also mildly distended and filled with a moderate amount of hyperdense material suggestive of blood products/hemorrhage. 3. Interval placement of 2 common bile duct stents which appear in good position. However, the hepatic duct proximal to the common bile duct stents remains distended and filled with hyperdense material. This could represent residual stones or blood. There is persistent intrahepatic bile duct dilatation. 4. Interval development of peripheral gas within the liver. Given the recent intervention this most likely represents pneumobilia. However, the peripheral distribution raises the possibility of portal venous gas. 5. Nodular groundglass densities within the left lower lobe may represent an aspiration pneumonitis. 6. Small bilateral pleural effusions. 7. Additional findings as described above. ACT 112: Negative or not required by law. Electronically signed by: Jay Elias M.D. 07/07/2022 9:21 AM Endo Retro Cholangiopancreatogram 07/08/22 12:40 INTRAOPERATIVE RADIOGRAPHS CLINICAL HISTORY: ERCP. Duct exploration. Fluoroscopy time: 164 seconds. FINDINGS: 3 spot fluoroscopic views of the right upper quadrant from an ERCP procedure are presented. Cholecystectomy clips are noted. The initial image shows the endoscope projecting over the stomach. 2 common bile duct stents are in place and a wire has been placed into the duct. The common bile duct is dilated and contains intraluminal debris. A new stent is placed within the common bile duct on the final image. IMPRESSION: Intraoperative ERCP images as above. See operative report for detailed findings. Electronically signed by: Xavier Olivarez M.D. 07/08/2022 4:53 PM Ordered Studies 07/04/22 18:26 CT Abd and Pelvis [CT abd pelvis wo con] Stat 07/05/22 08:09 FL ERCP biliary ductal Routine 07/07/22 01:08 CT abd pelvis wo con Urgent 07/08/22 12:40 FL ERCP biliary ductal Routine Hospital Course (1) Sepsis: Secondary to gallstone pancreatitis and ascending cholangitis Continue antibiotics>>Zosyn Blood cultures: Negative to date Persistent leukocytosis (2) Acute pancreatitis: Gallstone pancreatitis Also likely developed post ERCP pancreatitis Received IV fluids NPO for now due to GI bleed/EGD and ERCP Acute GI Bleeding Likely from sphincterotomy site Acute blood loss anemia --CT ABD:The duodenum is distended and filled with hyperdense material suggestive of blood products/hemorrhage. There is also mild thickening of the duodenal wall with periduodenal fat stranding. Therefore, this could represent an acute pancreatitis versus a nonspecific duodenitis. Underlying duodenal ischemia is not excluded. The stomach is also mildly distended and filled with a moderate amount of hyperdense material suggestive of blood products/hemorrhage. Interval placement of 2 common bile duct stents which appear in good position. However, the hepatic duct proximal to the common bile duct stents remains distended and filled with hyperdense material. This could represent residual stones or blood. There is persistent intrahepatic bile duct dilatation. Interval development of peripheral gas within the liver. Given the recent intervention this most likely represents pneumobilia. However, the peripheral distribution raises the possibility of portal venous gas. -S/P EGD: Normal esophagus. Clotted blood in the gastric fundus. Blood in the duodenum, second portion of the duodenum and third portion of duodenum. Duodenal diverticulum. Large clot removal resulting in incomplete clearance with fair visualization. The biliary tree was swept and clots performed. 1 covered metal stent was placed into the common bile duct to tamponade the sphincterotomy site. Stent was removed from the biliary tree. --Aspirin held -- N.p.o. for now Appreciate GI input Continue PPI ggt Monitor H&H S/P 1 unit PRBCs Transfuse PRBCs as needed Continue broad-spectrum antibiotics for 2 weeks Needs repeat ERCP in 6 weeks for stent removal Needs transfer to tertiary care facility for IR intervention as has recurrence of bleeding Plan to transfer to tertiary care facility, [facility]. Accepting physician Dr.Karen Jackman (3) Choledocholithiasis: Plan as above. (4) Acute cholangitis: S/P ERCP performed 07/05/2022 - choledocholithiasis found, removed via balloon extraction, biliary sphincterectomy, pus swept, 2 biliary stents placed S/P Repeat ERCP on 07/08/22: Likely source of bleeding is from sphincterotomy site. Duodenal wall was injected around the site of the sphincterotomy with epinephrine. Biliary tree was then cannulated and a covered metal stent was placed into the bile duct to tamponade the sphincterotomy site. Monitor LFTs Blood cultures negative so far Advance diet as tolerated Appreciate GI input Avoid aspirin, NSAIDs for 5 days Continue Zosyn for now. Need to complete 2 week course of antibiotics Needs repeat ERCP in 6 weeks for biliary stent removal Needs follow-up with GI as outpatient Given recurrence of bleeding, will need IR intervention as recommended by GI Plan to transfer to tertiary care facility if accepted. (5) Hypertension: Hold Lisinopril due to TERRENCE Started on amlodipine Monitor BP Atrial fibrillation with RVR ECHO: Left ventricle wall motion is normal. Left ventricle systolic function is normal. EF 60 to 65%. Mild aortic regurgitation. Grade 1 diastolic dysfunction Converted to sinus spontaneously Received IV Lopressor Monitor on telemetry TSH:5.2 No anticoagulation given GI bleed Appreciate Cardiology Input IV Lopressor 2.5 mg Q6H while NPO (6) CKD (chronic kidney disease), stage III: TERRENCE on CKD III Cr: 1.4>0.92> 0.8 Hold lisinopril Avoid nephrotoxic agents as able Continue gentle IV fluids Monitor renal function (7) JUAN MANUEL (generalized anxiety disorder): Continue sertraline (8) Hypothyroidism: Continue levothyroxine (9) DVT prophylaxis: Lovenox SQ--Held due to GI bleed Code Status Full code Disposition [facility] Total Time Total Time Spent Total Time Spent (In Minutes): 56 minutes Discharge Plan Discharge Items Patient Disposition: Transfer Acute Care Hospital Reason For Visit: ABDOMINAL PAIN Discharge Diagnosis: Sepsis Acute pancreatitis Acute GI Bleeding Atrial fibrillation with RVR TERRENCE Activity: Per Instructions section Exercise/Sports: Wait until after follow-up appointment Non-emergency contact: Primary Care Provider, Linux Network Administrator and Floor Specialist Call non-emergency contact if: you have any medication questions, your symptoms worsen, your pain is concerning for you and you have a fever Follow-up/Referrals: Matt Zhu MD [Primary Care Provider] - Dietitian Info: NPO currently Diet: Heart Healthy Alonso Attending Provider Instructions: Follow up with Dr.Karen Jackman, Critical Care for further management at [facility] Sheri Launch Engineer Provider Instructions: Current Inpatient Medications Acetaminophen (Acetaminophen 500 Mg Tab) 500 mg PO Q6H PRN PRN Reason: pain/fever Stop: 08/06/22 02:55 Amlodipine Besylate (Amlodipine Besylate 5 Mg Tab) 2.5 mg PO QAM [facility] Stop: 08/06/22 05:19 Last Admin: 07/09/22 10:57 Dose: 2.5 mg Docusate Sodium (Docusate Sodium 100 Mg Cap) 100 mg PO DAILY [facility] Stop: 08/04/22 08:59 Last Admin: 07/09/22 11:50 Dose: 100 mg Piperacillin Sod/Tazobactam (Sod 3.375 gm/ Dextrose) 115 mls @ 28.75 mls/hr IV Q8H [facility]; Protocol Stop: 07/15/22 03:59 Last Admin: 07/09/22 12:17 Dose: 28.8 mls/hr Promethazine HCl 12.5 mg/ (Sodium Chloride) 50.5 mls @ 202 mls/hr IV Q6H PRN PRN Reason: Nausea And Vomiting Stop: 08/04/22 11:43 Last Infusion: 07/09/22 14:18 Dose: Infused Lactated Ringer's (Lr) 1,000 mls @ 60 mls/hr IV .[id number] [facility] Stop: 08/06/22 02:29 Last Admin: 07/09/22 03:26 Dose: 60 mls/hr Pantoprazole Sodium 40 mg/ (Dextrose) 100 mls @ 20 mls/hr IV Q5H LINO Stop: 08/06/22 11:14 Last Admin: 07/09/22 10:57 Dose: 8 mg/hr, 20 mls/hr Sodium Chloride (Nss) 250 mls @ 15 mls/hr IV .[id number] PRN PRN Reason: For Transfusion Stop: 07/09/22 16:39 Sodium Chloride (Nss) 250 mls @ 15 mls/hr IV .[id number] PRN PRN Reason: For Transfusion Stop: 07/09/22 23:54 Levothyroxine Sodium (Levothyroxine Sodium 50 Mcg Tablet) 50 mcg PO DAILYBB LINO Stop: 08/04/22 06:29 Last Admin: 07/09/22 06:02 Dose: Not Given Metoprolol Tartrate (Metoprolol Tartrate 1 Mg/Ml Vial) 2.5 mg IV Q6 LINO Stop: 08/07/22 12:59 Last Admin: 07/09/22 12:10 Dose: Not Given Morphine Sulfate (Morphine Sulfate 4 Mg/Ml 1 Ml Carp\Vial) 4 mg IV Q3H PRN PRN Reason: Pain Stop: 07/19/22 02:48 Multivitamins/Minerals (Cerovite Adv Formula Tab) 1 tab PO DAILY LINO Stop: 08/04/22 08:59 Last Admin: 07/09/22 10:57 Dose: 1 tab Nitroglycerin (Nitroglycerin Sl 0.4 Mg/Tab Tab) 0.4 mg SL UD PRN PRN Reason: Chest Pain Stop: 08/04/22 02:48 Oxycodone HCl (Oxycodone Hcl Ir 5 Mg Tab (Immediate Release)) 5 mg PO Q4H PRN PRN Reason: Pain Stop: 07/21/22 02:55 Psyllium Hydrophilic Mucilloid (Psyllium Or Guar Gum Fiber Powder Packet) 1 pkt PO DAILY LINO Stop: 08/04/22 08:59 Last Admin: 07/09/22 11:06 Dose: 1 pkt Sertraline HCl (Sertraline Hcl 50 Mg Tablet) 25 mg PO QAM LINO Stop: 08/04/22 08:59 Last Admin: 07/09/22 11:49 Dose: 25 mg Simethicone (Simethicone 80 Mg Chew) 80 mg PO Q6H PRN PRN Reason: gas Stop: 08/05/22 22:46 Last Admin: 07/07/22 17:33 Dose: 80 mg Pending Studies at Discharge: No Stand-Alone Forms: My [facility] Skilled Items Patient informed of condition?: Yes DNR: No Discharge Level of Care: Other Communicable Disease: No Discharge Prognosis: Stable Lines: Peripheral IV Urinary Catheter: No Medications and DC Order Prescriptions: Continued aspirin 81 mg Tablet,Delayed Release (Dr/Ec) 81 mg PO HS lisinopril [Zestril] 10 mg Tablet 10 mg PO QAM levothyroxine 50 mcg tablet 50 mcg PO DAILYBB docusate sodium 100 mg Capsule 100 mg PO DAILY sertraline 25 mg tablet 25 mg PO QAM Multivitamin-Minerals Tablet 1 tab PO DAILY melatonin 5 mg Tablet 5 mg PO HS psyllium husk [Fiber (psyllium husk)] 0.4 gram Capsule 0.4 g PO DAILY Discharge Orders: Discharge Order (Routine); Ordered 07/09/22 Ordered By: Javid Farr Admission Data Admit Date/Time: 07/05/22 01:07 Attending Provider: Javid Farr Admit Provider: John Warren Primary Care Provider: Matt Zhu Other Providers: John Warren ; Noe Hadley ; Rahul Murillo ; Mic Zee
[2022-07-09 18:36] LABS: Hematocrit (blood only) 28.6 % (40.1-51.0)
[2022-07-09 21:16] LABS: Hematocrit (blood only) 27.7 % (40.1-51.0); Hemoglobin 9.8 g/dl (14.0-18.0)
[2022-07-10] MEDS: PANTOprazole 40 MG in DEXTROSE 5% 100 ML IV SCH (02:16)
== END 2022-07-10 02:16 | disposition short-term general hospital (02) | DRG 871 ==
LOC: ED 17:05 → 2N 07-05 01:07 → SUATTDRO 07-05 01:07 → 2N 07-05 03:14 → 2S 07-07 15:16